=== PATIENT | female | born 1975 | race Two or more races ===

== ENCOUNTER 2023-08-07 13:20 | Outpatient (AMB) | payer OTHER, SELFPAY ==
[2023-08-07 13:31] VITALS: PULSE 70; O2SAT 95; BMI 41.4
--- NOTE | 2023-08-07 13:31 | A.OFFVIS_ITS ---
Vital Signs 08/07/23 13:31 Height 5 ft 3 in Weight 234 lb BMI 41.4 Pulse 70 Pulse Source Pulse Oximeter Pulse Oximetry (%) 95 Oxygen Delivery Method Room Air Intake Visit Reasons: asthma Quarter Seamer Required: No Allergies amoxicillin Adverse Reaction (Severe, Verified 08/07/23 13:33) Hives morphine Adverse Reaction (Severe, Verified 08/07/23 13:33) Hives HPI Comments Details: The patient is here for pulmonary evaluation. The patient is a 48 year woman presenting here with worsening asthma symptoms and shortness breath. The patient had been evaluated previously at [facility]. She had been admitted multiple times with pneumonia many years ago. For the last few years though she has not been hospitalized which is reassuring. However, she has been complaining of progressive dyspnea on exertion. The patient has been noticed that even with minimal activity she is very short of breath. Therefore she has been sedentary. She has gained some weight. The patient does have significant headaches and daytime drowsiness. Her [place] score is elevated 24. She has significant cardiovascular risk factors including significant lower extremity edema. The patient will undergo home sleep study at this time. During the office visit we did go for brief walking oximetry. The patient was able to maintain a pulse ox of 98% and the heart rate was indeed stable which is reassuring. As far as inhalers she has been on Arnuity and Incruse. Does have been partially effective. Sometimes she has confused about the inhalers. At this point will go ahead and maximize respiratory therapy by switching her over to Trelegy inhaler which will be on easier and will provide her more coverage as far as her bronchodilation. The patient is a former smoker. She quit smoking about 3 years ago. She smoked for more than 20 years for about a pack a day. Therefore she does qualify for the lung cancer screening program. Will make a referral at this time. [facility] Medical History Dyspnea Lower extremity edema MELQUIADES (obstructive sleep apnea) Asthma Smoking history Social History (Updated 08/07/23 @ 13:38 by ANGY Goode) Patient Tobacco Use Status: Never used Tobacco Review of Systems Const Reports weight gain Eyes Reports no additional complaints ENT Reports nasal congestion Card Denies chest pain and Reports dyspnea on exertion Resp Reports dyspnea on exertion and Reports wheezing GI Reports no additional complaints Musc Reports no additional complaints Skin/Breast Denies rash Neuro Reports no additional complaints Shawn/Lymph Reports no additional complaints Aller/Immun Reports wheezing Physical Exam Vital Signs: Last Vital Signs Pulse 70 08/07/23 13:31 Pulse Ox 95 08/07/23 13:31 Oxygen Delivery Method Room Air 08/07/23 13:31 BMI result Body Mass Index 41.4 Const General: comfortable HEENT Head: Yes normocephalic Neck Neck: Yes supple Chest Chest palpation & inspection: normal inspection of the chest Resp Effort & Inspection: normal respiratory effort Auscultation: no rhonchi, no wheezes and diminished lung sounds Cardio Heart sounds: S1 normal heart sound present and S2 normal heart sound present GI Palpation (GI): Soft to palpation Skin General skin exam: no rashes or lesions noted Extrem General: No clubbing, No cyanosis and Yes edema Assessment & Plan Assessment & Plan (1) Smoking history: Code(s): Z87.891 - Personal history of nicotine dependence Category: Social Hx (2) MELQUIADES (obstructive sleep apnea): Code(s): G47.33 - Obstructive sleep apnea (adult) (pediatric) Category: Medical (3) Asthma: Code(s): J45.909 - Unspecified asthma, uncomplicated Category: Medical Qualifiers: Asthma severity: moderate Asthma persistence: persistent Asthma complication type: uncomplicated Qualified Code(s): J45.40 - Moderate persistent asthma, uncomplicated (4) Lower extremity edema: Code(s): R60.0 - Localized edema Category: Medical (5) Dyspnea: Code(s): R06.00 - Dyspnea, unspecified Category: Medical Qualifiers: Dyspnea type: dyspnea on exertion Qualified Code(s): R06.09 - Other forms of dyspnea Plan stop Incruse/arnuity start Trelegy 200 ROBBI as needed Home PSG LDCT screen Continue diuresis, additional lasix x 2-3 days Low sodium diet consider ECHO F/U 2-3 months Orders: Orders RT home sleep study Today G47.33 - Obstructive sleep apnea (adult) (pediatric) Referrals Lung Cancer Screening Referral J45.909 - Unspecified asthma, uncomplicated, Z87.891 - Personal history of nicotine dependence Medications: New stzdxzzcavs-hcjffyail-usfdtpcr 200-62.5-25 mcg (Trelegy Ellipta) 1 inh inhalation DAILY 30 days 60 ea 12RF furosemide (Lasix) 20 mg PO DAILY PRN 10 tabs 0RF edema Coding Level of Care Code New Pt Level 4 (72344) Diagnoses Smoking history Z87.891 MELQUIADES (obstructive sleep apnea) G47.33 Moderate persistent asthma without complication J45.40 Asthma severity: moderate Asthma persistence: persistent Asthma complication type: uncomplicated Lower extremity edema R60.0 Dyspnea on exertion R06.09 Dyspnea type: dyspnea on exertion Time Spent (min) 45
== END 2023-08-07 14:02 | disposition home or self-care (01) ==
PROVIDERS: PCP Physician Assistant; Referring Provider Internal Medicine; Visit Provider Hospitalist
DX: Z87.891 Personal history of nicotine dependence (principal); G47.33 Obstructive sleep apnea (adult) (pediatric); J45.40 Moderate persistent asthma, uncomplicated; R60.0 Localized edema; R06.09 Other forms of dyspnea
CPT/HCPCS: 99204

== ENCOUNTER → 2023-08-07 13:20 | Outpatient (BNVA) | payer OTHER, SELFPAY | PROVIDERS: PCP Physician Assistant; Referring Provider Internal Medicine; Visit Provider Hospitalist | DX: J45.40 Moderate persistent asthma, uncomplicated (principal); G47.33 Obstructive sleep apnea (adult) (pediatric); R06.09 Other forms of dyspnea; R60.0 Localized edema; Z87.891 Personal history of nicotine dependence | CPT/HCPCS: 99202 ==

== ENCOUNTER → 2023-09-24 09:04 | Outpatient (REF) | payer OTHER, SELFPAY | LOC: HO.SL 09:04 | PROVIDERS: Visit Provider Hospitalist | DX: G47.33 Obstructive sleep apnea (adult) (pediatric) (principal) | CPT/HCPCS: 95806 ==

== ENCOUNTER → 2023-09-25 09:21 | Outpatient (BNV) | payer OTHER, SELFPAY | PROVIDERS: Visit Provider Internal Medicine | DX: R06.83 Snoring (principal) | CPT/HCPCS: 95806 ==

== ENCOUNTER 2023-10-11 16:24 | Outpatient (AMB) | payer OTHER, SELFPAY ==
--- NOTE | 2023-10-11 15:50 | A.OFFVIS_ITS ---
Intake Visit Reasons: Former Smoker Allergies amoxicillin Adverse Reaction (Severe, Verified 08/07/23 13:33) Hives morphine Adverse Reaction (Severe, Verified 08/07/23 13:33) Hives HPI HPI Former Smoker: Details: Initial telehealth visit via phone for this 48 former smoker with a 35PYH. Patient has been smoking since age 16 for 31 years at 1-1.5ppd. Quit 1yr ago in 2022. . Denies marijuana use. Denies second hand smoke exposure. Denies exposure to chemicals or substances like asbestos. . Denies known family history of lung cancer. Denies personal history of cancers. Denies chest CT in last year. . Denies recent travel outside the [place]. Denies recent respiratory illness or recent hospitalization for respiratory issues. Reorts testing positive for COVID. x3. Admits receiving COVID Vaccine. x 2. . Denies fever, chills, new/worsening cough, hemoptysis, hoarseness or dysphagia. Denies significant chest pain, significant dyspnea or unintentional weight loss. Patient Lung Cancer Screening Questionnaire reviewed with patient by provider. . Shared Decision Making Completed. Patient meets criteria. Discussed in detail with patient, the risk vs benefit of LDCT screening. Patient consents to proceed with scan. Discussed smoking cessation. [facility] Medical History (Updated 10/11/23 @ 15:56 by Rachel Garcia PA-C) Asthma MELQUIADES (obstructive sleep apnea) Personal history of nicotine dependence Lower extremity edema Surgical History (Updated 10/11/23 @ 15:51 by Rachel Garcia PA-C) S/P UNIFORM MAKER shunt History of carpal tunnel release History of cholecystectomy History of total right knee replacement (TKR) Social History (Updated 10/11/23 @ 15:56 by Rachel Garcia PA-C) Patient Tobacco Use Status: Former Tobacco user Tobacco use type: Cigarette Years Smoked: (onset 16yo, 1-1.5ppd x 31yrs, 35pyh, quit 2022) Telehealth Telehealth Telehealth Platform: Telephone Location of provider rendering services: practice address Location of patient: address on file Patient Identification confirmed using: Name, : Yes Telehealth method: voice only Patient verbally consented to treatment: Yes Patient verbally consented to billing insurance company: Yes Patient informed of any privacy concerns related to visit: Yes Minutes spent on Phone/Video with Pt.: 15 Assessment & Plan Assessment & Plan (1) Personal history of nicotine dependence: Comment: (onset 16yo, 1-1.5ppd x 31yrs, 35pyh, quit 2022) Code(s): Z87.891 - Personal history of nicotine dependence Category: Medical Plan: - SDM visit completed today via phone - Patient meets criteria for LDCT for lung cancer screening purposes and is asymptomatic. - Smoking cessation counseling offered. Patients can always call [phone]. - Will arrange for a LDCT scan of the chest for screening purposes at [facility]. - Risks, benefits, and alternatives were discussed in detail and the patient agrees to proceed. - Risks discussed include but are not limited to: radiation exposure, anxiety during testing and while awaiting results, false negatives, false positives and possibility of additional intervention such as further imaging or surgical procedures for benign disease. - Benefits are obviously detection of lung cancer at an early stage which can lead to improved outcomes. - Discussed the importance of screening program compliance with adherence to yearly LDCT scan as scheduled - or sooner interval scans for personalized screening regimen. - Discussed follow up plan. Our office will send a letter discussing results and if needed set up phone call and office visit based on CT findings. - Patient educated on results categorization and the management decisions for suspicious findings potentially found on the screening LDCT scan. Any patient with a Lung RADS score of 3 or 4 will be reviewed by a multidisciplinary team at [facility] to form a plan of action in regards to scan findings. - If further work up is warranted for a suspicious lung finding this will be followed by the Lung Cancer Screening program in conjunction with the Thoracic Surgery Department at [facility]. - A copy of the office note and LDCT will be sent to the patient's PCP - as well as documentation on any associated further plans of care. - Incidental findings on LDCT are the PCP's responsibility. These findings are indicated with an S finding on the LDCT Assessment. A note discussing the findings will be sent to the PCP who is then responsible for further management. - All questions answered.? Plan Coding Level of Care Code Lung Cancer Screening G0296 Diagnoses Personal history of nicotine dependence Z87.891
== END 2023-10-11 16:25 | disposition home or self-care (01) ==
LOC: HO.HPS 16:24
PROVIDERS: Referring Provider Hospitalist; Visit Provider Physician Assistant Medical
DX: Z87.891 Personal history of nicotine dependence (principal)
CPT/HCPCS: G0296

== ENCOUNTER → 2023-10-11 16:24 | Outpatient (BNVA) | payer OTHER, SELFPAY | PROVIDERS: Visit Provider Physician Assistant Medical | DX: Z87.891 Personal history of nicotine dependence (principal); Z71.6 Tobacco abuse counseling | CPT/HCPCS: G0296 ==

== ENCOUNTER 2023-10-12 11:12 | Outpatient (REF) | payer OTHER, SELFPAY ==
--- NOTE | ~2023-10-12 | CT_ITS ---
EXAMINATION: CT LOW-DOSE SCREENING CHEST WITHOUT CONTRAST CLINICAL INFORMATION: Personal history of nicotine dependence. Former smoker. The patient has a 31 pack-year history of smoking, having quit 1 year ago. COMPARISON: None available. TECHNIQUE: Multidetector volumetric CT imaging of the chest is performed on a Siemens SOMATOM Definition scanner without contrast using low dose technique. Additional 2D coronal and sagittal reformatted images and axial 3D maximum intensity projection (MIP) images are generated on the CT workstation. This CT examination was performed using dose optimization techniques as appropriate, variously including the following: *Automated exposure control. *Adjustment of mA and/or kV according to patient size (this includes techniques or standardized protocols for targeted exams where dose is matched to indication/reason for exam; i.e. extremities or head). *Use of iterative reconstruction technique. TOTAL EXAM DLP: 60 mGy-cm. CTDIvol: 1.85 mGy. FINDINGS: PULMONARY NODULES: The following pulmonary nodules are present: - 5.4 mm right upper lobe (5:83). - 5.4 mm left upper lobe (5:168). - 4.8 mm pleural-based anterior right upper lobe (5:213). - 4 mm perifissural lymph node left lower lobe (5:215). No suspicious nodule is seen to suggest malignancy. LUNGS: Lungs bilaterally symmetrically expanded. There is moderate emphysema and mild bronchial thickening. No effusion or pneumothorax. Central airways patent. MEDIASTINUM: No mediastinal, hilar or axillary adenopathy or free fluid collection. CORONARY ARTERY CALCIFICATION: None visualized on this study. THYROID GLAND: Unremarkable to the extent seen. CARDIOVASCULAR STRUCTURES: Aortic and heart size normal. No pericardial effusion. CHEST WALL/AXILLA: Unremarkable. UPPER ABDOMEN: Included portions of the solid organs in the upper abdomen unremarkable on noncontrast imaging. Status post cholecystectomy. OSSEOUS STRUCTURES: No suspicious focal findings. CT/CT lung screening IMPRESSION: No finding is seen suspicious for malignancy. ASSESSMENT: 1. Lung-RADS Category 2: Benign appearance or behavior of nodules. N/A. 2. Lung-RADS Category S: Negative. There are no clinically significant or potentially clinically significant findings not related to the lungs requiring urgent additional evaluation. RECOMMENDATION: Continued routine annual low-dose CT lung screening in 1 year is recommended. An order for CT CHEST LOW DOSE CANCER SCREENING ([id number]) can be placed. Electronically signed by: Marques Rueda MD 11/09/2023 12:52 AM EDT RP
== END 2023-10-12 11:13 | disposition home or self-care (01) ==
LOC: HO.CT 11:12
PROVIDERS: Visit Provider Physician Assistant Medical
DX: Z12.2 Encounter for screening for malignant neoplasm of respiratory organs (principal); Z87.891 Personal history of nicotine dependence
CPT/HCPCS: 71271

== ENCOUNTER 2023-11-14 10:52 | Outpatient (AMB) | payer OTHER, SELFPAY ==
--- NOTE | 2023-11-14 10:54 | MHC.OFFVIS ---
Vital Signs 11/14/23 10:55 Height 5 ft 3 in Weight 219 lb BMI 38.8 BP 128/70 Blood Pressure Location Lt brachial Position Sitting Pulse 87 Pulse Source Pulse Oximeter Pulse Oximetry (%) 97 Oxygen Delivery Method Room Air Intake Visit Reasons: Asthma Garage Helper Required: No Allergies amoxicillin Adverse Reaction (Severe, Verified 11/14/23 10:56) Hives morphine Adverse Reaction (Severe, Verified 11/14/23 10:56) Hives HPI Comments Details: The patient is a 48 year woman presenting here with worsening asthma symptoms and shortness breath. The patient had been evaluated previously at [facility]. She had been admitted multiple times with pneumonia many years ago. For the last few years though she has not been hospitalized which is reassuring. However, she has been complaining of progressive dyspnea on exertion. The patient has been noticed that even with minimal activity she is very short of breath. Therefore she has been sedentary. She has gained some weight. The patient does have significant headaches and daytime drowsiness. Her Reynolds score is elevated 02/11. She has significant cardiovascular risk factors including significant lower extremity edema. The patient will undergo home sleep study at this time. During the office visit we did go for brief walking oximetry. The patient was able to maintain a pulse ox of 98% and the heart rate was indeed stable which is reassuring. As far as inhalers she has been on Arnuity and Incruse. Does have been partially effective. Sometimes she has confused about the inhalers. At this point will go ahead and maximize respiratory therapy by switching her over to Trelegy inhaler which will be on easier and will provide her more coverage as far as her bronchodilation. The patient is a former smoker. She quit smoking about 3 years ago. She smoked for more than 20 years for about a pack a day. Therefore she does qualify for the lung cancer screening program. Will make a referral at this time. 11/14/2023 the patient is here for a pulmonary follow-up visit. Overall she is doing okay. She still has some dyspnea on exertion. mild in severity. It is getting better. In addition to that she quit smoking. She still has a hard time with the cravings. We did go over her lung cancer screening CT scan. She does have mild emphysema. This concerned her. In addition to that she has multiple subcentimeter pulmonary nodules. Do not appear concerning her rads 2. She will get the CT scan in a year's time. In addition to that she continues have daytime drowsiness. Reynolds score is elevated 1124. she has witnessed apneic episodes significant snoring from her . She did have a home sleep study. Did not look like a recorded well but she did have 34 minutes which she spent below 88%. Therefore she has significant nocturnal hypoxia. Based on her symptoms and hypoxia I do not believe that the home sleep studies accurate. She will need a in-lab sleep study at this time. Will requested. She will continue with current respiratory therapy as prescribed. She will continue to use her rescue inhaler as needed. She is going to continue to focus on weight management. She also needs to continue with a low-sodium diet to avoid volume overload status. She does have varicose veins and lymphedema. She needs compression stockings to decrease the amount of edema. I will give her a prescription in order for her to get it at [facility]. [facility] Medical History (Updated 11/14/23 @ 22:45 by Rodney Vazquez MD) Nocturnal hypoxia Lymphadenopathy Asthma MELQUIADES (obstructive sleep apnea) Personal history of nicotine dependence Lower extremity edema Surgical History (Updated 10/11/23 @ 15:51 by Rachel Garcia PA-C) S/P IT INFRASTRUCTURE PROJECT MANAGER shunt History of carpal tunnel release History of cholecystectomy History of total right knee replacement (TKR) Social History (Updated 10/11/23 @ 15:56 by Rachel Garcia PA-C) Patient Tobacco Use Status: Former Tobacco user Tobacco use type: Cigarette Years Smoked: (onset 16yo, 1-1.5ppd x 31yrs, 35pyh, quit 2022) Review of Systems Const Reports weight gain Eyes Reports no additional complaints ENT Reports nasal congestion Card Denies chest pain and Reports dyspnea on exertion Resp Reports dyspnea on exertion and Reports wheezing GI Reports no additional complaints Musc Reports no additional complaints Skin/Breast Denies rash Neuro Reports no additional complaints Shawn/Lymph Reports no additional complaints Aller/Immun Reports wheezing Physical Exam Vital Signs: Last Vital Signs Pulse 87 11/14/23 10:55 BP 128/70 11/14/23 10:55 Pulse Ox 97 11/14/23 10:55 Oxygen Delivery Method Room Air 11/14/23 10:55 BMI result Body Mass Index 38.8 Const General: comfortable HEENT Head: Yes normocephalic Neck Neck: Yes supple Chest Chest palpation & inspection: normal inspection of the chest Resp Effort & Inspection: normal respiratory effort Auscultation: no rhonchi, no wheezes and diminished lung sounds Cardio Heart sounds: S1 normal heart sound present and S2 normal heart sound present GI Palpation (GI): Soft to palpation Skin General skin exam: no rashes or lesions noted Extrem General: No clubbing, No cyanosis and Yes edema Assessment & Plan Assessment & Plan (1) MELQUIADES (obstructive sleep apnea): Code(s): G47.33 - Obstructive sleep apnea (adult) (pediatric) Category: Medical (2) Asthma: Code(s): J45.909 - Unspecified asthma, uncomplicated Category: Medical Qualifiers: Asthma complication type: uncomplicated Asthma persistence: persistent Asthma severity: moderate Qualified Code(s): J45.40 - Moderate persistent asthma, uncomplicated (3) Lower extremity edema: Code(s): R60.0 - Localized edema Category: Medical (4) Dyspnea: Code(s): R06.00 - Dyspnea, unspecified Category: Medical Qualifiers: Dyspnea type: dyspnea on exertion Qualified Code(s): R06.09 - Other forms of dyspnea (5) Lymphadenopathy: Code(s): R59.1 - Generalized enlarged lymph nodes Category: Medical (6) Nocturnal hypoxia: Code(s): G47.34 - Idiopathic sleep related nonobstructive alveolar hypoventilation Category: Medical Plan continue Trelegy 200 ROBBI as needed in lab PSG LDCT screen Continue diuresis, additional lasix x 2-3 days Low sodium diet consider ECHO F/U 2-3 months Orders: Orders RT PSG in-lab sleep study Today G47.33 - Obstructive sleep apnea (adult) (pediatric), G47.34 - Idiopathic sleep related nonobstructive alveolar hypoventilation Medications: New compress.stocking,knee,reg,med 15-20 cm 2 ea 0RF R59.1 - Generalized enlarged lymph nodes Coding Level of Care Code Est Pt Level 4 (43756) Diagnoses MELQUIADES (obstructive sleep apnea) G47.33 Moderate persistent asthma without complication J45.40 Asthma complication type: uncomplicated Asthma persistence: persistent Asthma severity: moderate Lower extremity edema R60.0 Dyspnea on exertion R06.09 Dyspnea type: dyspnea on exertion Lymphadenopathy R59.1 Nocturnal hypoxia G47.34 Time Spent (min) 17
[2023-11-14 10:55] VITALS: BP 128/70; PULSE 87; O2SAT 97; BMI 38.8
== END 2023-11-14 11:18 | disposition home or self-care (01) ==
PROVIDERS: PCP Physician Assistant; Visit Provider Hospitalist
DX: G47.33 Obstructive sleep apnea (adult) (pediatric) (principal); J45.40 Moderate persistent asthma, uncomplicated; R60.0 Localized edema; R06.09 Other forms of dyspnea; R59.1 Generalized enlarged lymph nodes; G47.34 Idiopathic sleep related nonobstructive alveolar hypoventilation
CPT/HCPCS: 99214

== ENCOUNTER → 2023-11-14 10:52 | Outpatient (BNVA) | payer OTHER, SELFPAY | PROVIDERS: PCP Physician Assistant; Visit Provider Hospitalist | DX: J45.40 Moderate persistent asthma, uncomplicated (principal); R06.09 Other forms of dyspnea; G47.33 Obstructive sleep apnea (adult) (pediatric); R59.1 Generalized enlarged lymph nodes; G47.34 Idiopathic sleep related nonobstructive alveolar hypoventilation | CPT/HCPCS: 99212 ==

== ENCOUNTER → 2023-12-20 20:30 | Outpatient (REF) | payer OTHER, SELFPAY | LOC: HO.SL 20:30 | PROVIDERS: PCP Physician Assistant; Visit Provider Hospitalist | DX: G47.34 Idiopathic sleep related nonobstructive alveolar hypoventilation (principal); G47.33 Obstructive sleep apnea (adult) (pediatric) | CPT/HCPCS: 95810 ==

== ENCOUNTER → 2023-12-20 23:33 | Outpatient (BNV) | payer OTHER, SELFPAY | PROVIDERS: PCP Physician Assistant; Visit Provider Internal Medicine | DX: R06.83 Snoring (principal) | CPT/HCPCS: 95810 ==

== ENCOUNTER 2024-03-12 10:38 | Outpatient (AMB) | payer OTHER, SELFPAY ==
--- NOTE | 2024-03-12 10:46 | A.OFFVIS_ITS ---
Vital Signs 03/12/24 10:47 Height 5 ft 3 in Weight 229 lb 4.492 oz BMI 40.6 BP 152/90 H Blood Pressure Location Rt brachial Position Sitting Pulse 66 Pulse Source Pulse Oximeter Pulse Oximetry (%) 95 Oxygen Delivery Method Room Air Intake Visit Reasons: Asthma Allergies amoxicillin Adverse Reaction (Severe, Verified 03/12/24 10:50) Hives morphine Adverse Reaction (Severe, Verified 03/12/24 10:50) Hives HPI Comments Details: The patient is a 48 year woman presenting here with worsening asthma symptoms and shortness breath. The patient had been evaluated previously at [facility]. She had been admitted multiple times with pneumonia many years ago. For the last few years though she has not been hospitalized which is reassuring. However, she has been complaining of progressive dyspnea on exertion. The patient has been noticed that even with minimal activity she is very short of breath. Therefore she has been sedentary. She has gained some weight. The patient does have significant headaches and daytime drowsiness. Her Stillwater score is elevated 12/24. She has significant cardiovascular risk factors including significant lower extremity edema. The patient will undergo home sleep study at this time. During the office visit we did go for brief walking oximetry. The patient was able to maintain a pulse ox of 98% and the heart rate was indeed stable which is reassuring. As far as inhalers she has been on Arnuity and Incruse. Does have been partially effective. Sometimes she has confused about the inhalers. At this point will go ahead and maximize respiratory therapy by switching her over to Trelegy inhaler which will be on easier and will provide her more coverage as far as her bronchodilation. The patient is a former smoker. She quit smoking about 3 years ago. She smoked for more than 20 years for about a pack a day. Therefore she does qualify for the lung cancer screening program. Will make a referral at this time. 11/14/2023 the patient is here for a pulmonary follow-up visit. Overall she is doing okay. She still has some dyspnea on exertion. mild in severity. It is getting better. In addition to that she quit smoking. She still has a hard time with the cravings. We did go over her lung cancer screening CT scan. She does have mild emphysema. This concerned her. In addition to that she has multiple subcentimeter pulmonary nodules. Do not appear concerning her rads 2. She will get the CT scan in a year's time. In addition to that she continues have daytime drowsiness. Stillwater score is elevated 1124. she has witnessed apneic episodes significant snoring from her . She did have a home sleep study. Did not look like a recorded well but she did have 34 minutes which she spent below 88%. Therefore she has significant nocturnal hypoxia. Based on her symptoms and hypoxia I do not believe that the home sleep studies accurate. She will need a in-lab sleep study at this time. Will requested. She will continue with current respiratory therapy as prescribed. She will continue to use her rescue inhaler as needed. She is going to continue to focus on weight management. She also needs to continue with a low-sodium diet to avoid volume overload status. She does have varicose veins and lymphedema. She needs compression stockings to decrease the amount of edema. I will give her a prescription in order for her to get it at [facility]. 03/12/2024 the patient is here for a pulmonary follow-up visit. The patient overall has been doing okay. She does state that she is having intermittent chest pain. There fleeting when they occur. [id number] severity. Mainly in the left side of the chest. Will go ahead and request a EKG and also a echocardiogram. The patient should also get some blood work. If the symptoms reoccur she should go to the ER for further evaluation. Currently she does not have any chest discomfort. She still has daytime drowsiness. She did have a in- lab sleep study. No evidence of any significant sleep apnea although she did have nocturnal hypoxia. It was recommended that she sleep with oxygen. The patient is not interested at this time. Will plan to do a repeat overnight oximetry in the near future. In the meantime we talked about her lower extremity edema. The patient has been on diuretics. She does not have a good dietary regimen right now. The patient eats out most of the time or has process foods. The patient states that she does not cook and she does not want a cook b ecause it just brings bad memories with her mom. Therefore, will go ahead and for her to a dietitian to help with that and the patient will continue with current respiratory therapy. She is taking part of the lung cancer screening program. Her last CT scan was back in September which is reassuring. She will have a repeat CT scan sometime in 10/08/2024. Will plan to follow-up in the fall. If any issues arise prior to that she will call for an earlier assessment. [facility] Medical History (Updated 03/12/24 @ 19:30 by Rodney Vazquez MD) Chest pain Nocturnal hypoxia Lymphadenopathy Asthma MELQUIADES (obstructive sleep apnea) Personal history of nicotine dependence Lower extremity edema Surgical History (Updated 10/11/23 @ 15:51 by Rachel Garcia PA-C) S/P HUMAN RESOURCES GENERALIST shunt History of carpal tunnel release History of cholecystectomy History of total right knee replacement (TKR) Social History Patient Tobacco Use Status: Former Tobacco user Tobacco use type: Cigarette Years Smoked: (onset 16yo, 1-1.5ppd x 31yrs, 35pyh, quit 2022) Review of Systems Const Reports weight gain Eyes Reports no additional complaints ENT Reports nasal congestion Card Reports chest pain and Reports dyspnea on exertion Resp Reports dyspnea on exertion and Reports wheezing GI Reports no additional complaints Musc Reports no additional complaints Skin/Breast Denies rash Neuro Reports no additional complaints Shawn/Lymph Reports no additional complaints Aller/Immun Reports wheezing Physical Exam Vital Signs: Last Vital Signs Pulse 66 03/12/24 10:47 BP 152/90 H 03/12/24 10:47 Pulse Ox 95 03/12/24 10:47 Oxygen Delivery Method Room Air 03/12/24 10:47 BMI result Body Mass Index 40.6 Const General: comfortable HEENT Head: Yes normocephalic Neck Neck: Yes supple Chest Chest palpation & inspection: normal inspection of the chest Resp Effort & Inspection: normal respiratory effort Auscultation: no rhonchi, no wheezes and diminished lung sounds Cardio Heart sounds: S1 normal heart sound present and S2 normal heart sound present GI Palpation (GI): Soft to palpation Skin General skin exam: no rashes or lesions noted Extrem General: No clubbing, No cyanosis and Yes edema Assessment & Plan Assessment & Plan (1) MELQUIADES (obstructive sleep apnea): Code(s): G47.33 - Obstructive sleep apnea (adult) (pediatric) Category: Medical (2) Asthma: Code(s): J45.909 - Unspecified asthma, uncomplicated Category: Medical Qualifiers: Asthma complication type: uncomplicated Asthma persistence: persistent Asthma severity: moderate Qualified Code(s): J45.40 - Moderate persistent asthma, uncomplicated (3) Lower extremity edema: Code(s): R60.0 - Localized edema Category: Medical (4) Dyspnea: Code(s): R06.00 - Dyspnea, unspecified Category: Medical Qualifiers: Dyspnea type: dyspnea on exertion Qualified Code(s): R06.09 - Other forms of dyspnea (5) Lymphadenopathy: Code(s): R59.1 - Generalized enlarged lymph nodes Category: Medical (6) Nocturnal hypoxia: Code(s): G47.34 - Idiopathic sleep related nonobstructive alveolar hypoventilation Category: Medical (7) Chest pain: Code(s): R07.9 - Chest pain, unspecified Category: Medical Qualifiers: Chest pain type: unspecified Qualified Code(s): R07.9 - Chest pain, unspecified Plan continue Trelegy 200 ROBBI as needed EKG Bloodwork ECHO LDCT screen 09/2024 Continue diuresis Low sodium diet Water Tester referral F/U 6-8 months Orders: Orders Liver Panel Today R07.9 - Chest pain, unspecified Troponin-I High Sensitivity Today R07.9 - Chest pain, unspecified CA echo transthoracic complete Today I27.20 - Pulmonary hypertension, unspecified, R07.9 - Chest pain, unspecified Complete Blood Count Auto Diff Today R07.9 - Chest pain, unspecified Basic Metabolic Panel Today R07.9 - Chest pain, unspecified Erythrocyte Sedimentation Rate Today R07.9 - Chest pain, unspecified ECG 12 lead EKG Today J44.9 - Chronic obstructive pulmonary disease, unspecified, R07.9 - Chest pain, unspecified Referrals 2 Water Tester Nutrition Referral E66.9 - Obesity, unspecified Coding Level of Care Code Est Pt Level 4 (54324) Diagnoses MELQUIADES (obstructive sleep apnea) G47.33 Moderate persistent asthma without complication J45.40 Asthma complication type: uncomplicated Asthma persistence: persistent Asthma severity: moderate Lower extremity edema R60.0 Dyspnea on exertion R06.09 Dyspnea type: dyspnea on exertion Lymphadenopathy R59.1 Nocturnal hypoxia G47.34 Chest pain, unspecified type R07.9 Chest pain type: unspecified Time Spent (min) 17
[2024-03-12 10:47] VITALS: BP 152/90; PULSE 66; O2SAT 95; BMI 40.6
--- OUTSIDE RECORDS SUMMARY | 2024-03-12 11:52 | XMS_ITS | Encounter Summary ---
Author Organization [facility] Address [id number] [place] [id number] Care Team Providers Care Fiberglass Dowel Drawing Operator Name Role Phone Chely Barnes Primary Care Provider + Reason for Visit * Reason Onset Date Comments Prior Authorization 01/23/2024 Encounter Details Date Type Department Care Team (Late st Contact Info) Description 01/23/2024 Telephone Internal Medicine - [place] [address] [place] [phone] Chely Barnes PA [address] [place] [address] Prior Authorization Social History Tobacco Use Types Packs/Day Years Used Date Smoking Tobacco: Every Day Cigarettes Started: 03/14/1995 Smokeless Tobacco: Never Alcohol Use Standard Drinks/Week Comments No 0 (1 standard drink = 0.6 oz pur e alcohol) Sex and Gender Information Value Date Recorded Sex Assigned at Not on file Gender Identity Not on file Sexual Orientation Not on file Job Start Date Occupation Industry Not on file Not on file Not on file documented as of this encounter Progress Notes * Yuliet Bhardwaj MA - 02/15/2024 9:47 AM EST active authorization already exists for this patient. Pharmacy Customer Care at [phone]. MPA: [id number] Effective: 02/10/2024 Terminate: 02/09/2025 * Fabiola Bass - 02/14/2024 4:00 PM EST Please complete Prior Auth. Patient new weight check documented 02/07/24. * Yuliet Bhardwaj MA - 02/01/2024 3:55 PM EST Yes it can wait. Will just put the prior authorization on hold. Thank you Please reply back to [facility] (Prior Auth Pool) Yuliet Reynolds [facility] Prior Authorization Ext [id number] * April Phipps MA - 02/01/2024 3:45 PM EST Pt has an appt with PCP on 02/07/2024 at 9:30 AM. Can we wait until that day for weight check? * Yuliet Bhardwaj MA - 02/01/2024 9:47 AM EST This is asking for members weight dated within the last 90 days. There is none, ( I can't do anything with this, I have no weight documentation. Please obtain a weight in a nurse visit Thank you Please reply back to [facility] (Prior Auth Pool) Yuliet Reynolsd [facility] Prior Authorization Ext [id number] * Yuliet Bhardwaj MA - 02/01/2024 9:38 AM EST Prior [facility] for the [facility] E66.01 morbid obesity * Fabiola Bass - 01/23/2024 10:07 AM EST Prior Authorization for Medication-do not complete and send this encounter unless you have the fax from the pharmacy. Is this a Cover My Meds request: NO Name of Medication semaglutide (WEGOVY) Dose of Medication 0.5 mg/0.5 mL What is the RX # from the faxed refill? - How does patient take this med? Inject 0.5 mg under the skin every 7 (seven) days What Pharmacy did the fax come from: [facility] fax #: [phone] [employer] Information from fax: What Prescription Plan does the patient have? - BIN/PCN if applicable: - Cardholder ID: - Person Code: - Relationship Code: - Help desk phone: - documented in this encounter Plan of Treatment Upcoming Encounters Date Type Department Care Team (Late st Contact Info) Description 06/10/2024 10:30 AM EDT Office Visit Internal Medicine - [place] [address] [phone] Chely Barnes PA [address] [facility] [address] [place] [address] documented as of this encounter Visit Diagnoses Not on filedocumented in this encounter Historical Medications * This list may reflect changes made after this encounter. Medication Sig Dispensed Refills Start Date End Date semaglutide (WEGOVY) 0.5 mg/0.5 mL injection pen Inject 0.5 mg under the skin every 7 (seven) days. 02/07/2024 added in this encounter Care Teams Fiberglass Dowel Drawing Operator Relationship Specialty Start Date End Date Chely Barnes PA [address] [id number] PCP - General Primary Care 12/27/23 documented as of this encounter
--- OUTSIDE RECORDS SUMMARY | 2024-03-12 11:52 | XMS_ITS | Clinical Summary ---
Author Organization [facility] Address [address] [place] [address] Phone Care Team Providers Care Bandoleer Packer Name Role Phone Chely Barnes Primary Care Provider + Allergies Active Allergy Reactions Criticality Noted Date Comments Amoxicillin Hives 12/27/2023 Morphine Hives 12/27/2023 Medications Medication Sig Dispensed Refills Start Date End Date Status furosemide (LASIX) 20 mg tablet Take 1 tablet (20 mg total) by mouth 1 (one) time each day. Active linaCLOtide (Linzess) 290 mcg capsule Take 1 capsule (290 mcg total) by mouth 1 (one) time each day. 90 capsule 1 4 07/28/19 25 Active cetirizine (ZyrTEC) 10 mg tablet Take 1 tablet (10 mg total) by mouth 1 (one) time each day if needed for allergies. 3 Active esomeprazole (NexIUM) [address] capsule Take 1 capsule (40 mg total) by mouth 1 (one) time each day. 4 Active escitalopram (LEXAPRO) 20 mg tablet Take 1 tablet (20 mg total) by mouth 1 (one) time each day. 3 Active fluticasone propionate (FLONASE) 50 mcg/actuation nasal spray Administer 2 sprays into each nostril 1 (one) time each day. SHAKE LIQUID 4 Active ondansetron ODT (ZOFRAN-ODT) 4 mg disintegrating tablet Dissolve 1 tablet (4 mg total) on top of the tongue every 8 (eight) hours if needed. Active simethicone (MYLICON) 125 mg chewable tablet Chew 1 tablet (125 mg total) 4 (four) times a day if needed for flatulence. 2 Active cholecalciferol (VITAMIN D-3) 50 mcg (2,000 unit) capsule Take 1 capsule (2,000 Units total) by mouth 1 (one) time each day. Active polycarbophil (FIBERCON) 625 mg tablet Take 1 tablet (625 mg total) by mouth 1 (one) time each day. for 360 days. Active metoprolol succinate (TOPROL-XL) 50 mg 24 hr tablet Take 1 tablet (50 mg total) by mouth 1 (one) time each day. Active albuterol HFA (PROAIR HFA ; PROVENTIL HFA ; VENTOLIN HFA) 90 mcg/actuation inhaler Inhale 2 puffs by mouth every 4 (four) hours if needed. 1 Active Trelegy Ellipta 200-62.5-25 mcg inhaler Inhale 1 puff (200 mcg total) by mouth 1 (one) time each day. 4 Active semaglutide (Wegovy) 1 mg/0.5 mL injection penIndications:Obes ity (BMI 30-39.9) Inject 1 mg under the skin every 7 (seven) days. 2 mL 2 4 Active amitriptyline (ELAVIL) 25 mg tabletIndications:I nsomnia, unspecified type TAKE 1 TABLET(25 MG) BY MOUTH AT BEDTIME 30 tablet 1 5 Active amitriptyline (ELAVIL) 25 mg tabletIndications:I nsomnia, unspecified type Take 1 tablet (25 mg total) by mouth at bedtime. 30 each 4 03/05/19 25 Discontinued Active Problems Problem Noted Date Diagnosed Date Asthma 02/04/2024 Depression 02/04/2024 Migraine 02/04/2024 Pseudotumor cerebri 02/04/2024 Morbid obesity with BMI of 40.0-44.9, adult 01/19 Vitamin D deficiency 09/13/2022 Hypoxemia 04/23/2020 Allergic rhinitis due to pollen 05/21/2019 Nicotine dependence, uncomplicated 05/21/2019 PND (post-nasal drip) 05/21/2019 Anxiety and depression 10/02/2018 Trigger finger 06/25/2017 Tobacco abuse disorder Overview (02/07/2024): DX:Tobacco abuse disorder HTN (hypertension) Encounters Date Type Department Care Team Description 03/11/2024 Telephone Internal Medicine - [place] [address] [phone] Chely Barnes PA Medication Problem (No prior auth for wegovy/Now requesting zepbound) 02/07/2024 9:30 AM EST Office Visit Internal Medicine [facility] [address] [phone] Chely Barnes PA Primary hypertension (Primary Dx); Moderate persistent asthma without complication; Tobacco abuse disorder; Anxiety and depression; Insomnia, unspecified type; Obesity (BMI 30-39.9) 01/23/2024 Telephone Internal Medicine [address] [phone] Chely Barnes PA Prior Authorization 12/28/2023 Telephone Gastroenterology - [address] [phone] Cruz Carrington DO provider call back 12/27/2023 1:00 AM EST - 12/27/2023 11:07 AM EST Emergency [facility] Emergency [address] [place] [phone] Discharge Disposition: Home or Self Care from Last 3 Months Immunizations Name Administration Dates Next Due Pfizer SARS-CoV-2 COVID-19, mRNA, LNP-S, preservative free 02/22/2021 Surgical History Surgery Date Site/Laterality Comments OTHER SURGICAL HISTORY PROCEDURE: ---- OTHER ----; COMMENT: v/p shunt - 4 years ago, done [facility] by Dr anders CHOLECYSTECTOMY 2001 PROCEDURE: HISTORICAL CHOLECYSTECTOMY CARPAL TUNNEL RELEASE 2016 PROCEDURE: GA NEUROPLASTY &/TRANSPOS MEDIAN NRV CARPAL TUNNE COLONOSCOPY 08/24/2021 PROCEDURE: HISTORICAL COLONOSCOPY; COMMENT: negative/fair prep ESOPHAGOGASTRODUODENOSCOPY 08/24/2021 PROCEDURE: GA EGD TRANSORAL BIOPSY SINGLE/MULTIPLE; COMMENT: hiatal hernia. biopsy with H.pylori gastritis TOTAL KNEE ARTHROPLASTY Right PROCEDURE: HISTORICAL TOTAL KNEE REPLACE; COMMENT: 2015 Medical History Medical History Date Comments Pseudotumor cerebri DX:Pseudotum or cerebri; COMMENT: follows with Dr Bergman [facility] S/P MARKET ANALYSIS DIRECTOR shunt DX:S/P MARKET ANALYSIS DIRECTOR shunt Asthma DX:Asthma; COMME NT: Dr Erazo at [facility] Migraine DX:Migraine; COM MENT: Dr peck in [facility] Trigger finger 06/25/2017 DX:Trigger finge r H/O total knee replacement, right 02/29/2016 DX:H/O total knee replacement, right Morbid obesity with BMI of 40.0-44.9, adult (CMS/HCC) 03/29/2018 DX:Morbid obesity with BMI of 40.0-44.9, adult ([facility]) Tobacco abuse disorder DX:Tobacc o abuse disorder Vitamin D deficiency DX:Vitamin D deficiency HTN (hypertension) Anxiety and depression Family History Medical History Relation Name Comments Hypertension Father dm, glaucoma, d ied at 50s Prostate cancer Maternal Grandfather Other cancer Maternal Grandmother cervica l Coronary artery disease Mother Other: a fib Mother Stroke Mother Prostate cancer Paternal Grandfather Other cancer Paternal Grandmother cervica l Relation Name Status Comments Father Maternal Grandfather Maternal Grandmother Mother (Age 81) Paternal Grandfather Paternal Grandmother Social History Tobacco Use Types Packs/Day Years Used Date Smoking Tobacco: Former Cigarettes Smokeless Tobacco: Never Tobacco Cessation:Counseling Given: Not Answered Comments:Quit smoking September 2023 Alcohol Use Standard Drinks/Week Comments No 0 (1 standard drink = 0.6 oz pur e alcohol) Sex and Gender Information Value Date Recorded Sex Assigned at Not on file Gender Identity Not on file Sexual Orientation Not on file Job Start Date Occupation Industry Not on file Not on file Not on file Obstetrics History Last Filed Vital Signs Vital Sign Reading Time Taken Comments Blood Pressure 122/76 02/07/2024 9:38 AM EST Pulse 90 02/07/2024 9:38 AM EST Temperature 37.1 ??C (98.8 ??F) 12/27/2023 1:22 AM ES T Respiratory Rate - - Oxygen Saturation 96% 02/07/2024 9:38 AM EST Inhaled Oxygen Concentration - - Weight 98.9 kg (218 lb) 02/07/2024 9:38 AM EST Height 162.6 cm (5' 4 ) 07/30/2023 10:53 AM EDT Body Mass Index 37.42 07/30/2023 10:53 AM EDT Plan of Treatment Upcoming Encounters Date Type Department Care Team (Late st Contact Info) Description 06/10/2024 10:30 AM EDT Office Visit Internal Medicine - [place] [address] [facility] [address] [place] [phone] Chely Barnes, NOHEMI [address] [facility] [address] [place] [address] Health Maintenance Due Date Last Done Comments Pneumococcal Vaccine: Pediatrics (0 to 5 Years) and At-Risk Patients (6 to 64 Years) (1 of 2 - PCV) 07/02/1979 DTaP,Tdap,and Td Vaccines (1 - Tdap) 1992 Hepatitis B Vaccines (1 of 3 - 19+ 3-dose series) 1992 Cervical Cancer Screening: P ap Smear 1994 Depression Screening 01/28/2022 HIV Screening 01/28/2022 Hepatitis C Screening 01/28/2022 Medicare Annual Wellness Visit 01/28/2022 Social Influencers of Health Screening 01/28/2022 Zoster Vaccines (1 of 2) 07/02/2023 COVID-19 Vaccine (4 - 2023-2 5 season) 2023 02/22/2021, 06/15/2020, 05/25/2020 Influenza Vaccine (#1) 2023 Hypertension/CHF/CAD Annual BMP Blood Test 05/27/2024 05/28/2023 Breast Cancer Screening 07/08/2025 07/09/2023 Cholesterol Screening (Lipid Panel) 09/12/2027 09/11/2022 Colorectal Cancer Screening: Colonoscopy 08/25/2031 08/24/2021 HIB Vaccines Aged Out No longer eligi ble based on patient's age to complete this topic HPV Vaccines Aged Out No longer eligi ble based on patient's age to complete this topic Hepatitis A Vaccines Aged Out No long er eligible based on patient's age to complete this topic IPV Vaccines Aged Out No longer eligi ble based on patient's age to complete this topic MMR Vaccines Aged Out No longer eligi ble based on patient's age to complete this topic Meningococcal ACWY Vaccine Aged Out N o longer eligible based on patient's age to complete this topic RSV Immunization Patients Under 20 months Aged Out No longer eligible b ased on patient's age to complete this topic Varicella Vaccines Aged Out No longer eligible based on patient's age to complete this topic Procedures Procedure Name Priority Date/Time Associated Diagnosis Comments RESPIRATORY VIRUS PANEL MOLECULAR STUDY STAT 12/27/2023 1:50 AM EST ECG 12-LEAD STAT 12/27/2023 1:16 AM EST ECG ANNOTATED 12/27/2023 MARGOTH SCREENING DIGITAL Routine 07/09/2023 10:08 AM EDT Encounter for screening mammogram for malignant neoplasm of breast ANNUAL BMP BLOOD TEST Routine 05/28/2023 LIPID PANEL Routine 09/11/2022 COLONOSCOPY Routine 08/24/2021 from Last 3 Months or Most Recently Relevant to Health Maintenance Results * Respiratory virus panel molecular study (12/27/2023 1:50 AM EST) Adenovirus Detection by PCR Not Detected Not Detected LAB MICROBIOLOGY METHOD 12/27/2023 2:[address] [facility] Influenza A PCR Not Detected Not Detected LAB MICROBIOLOGY METHOD 12/27/2023 2:[address] [facility] Influenza B PCR Not Detected Not Detected LAB MICROBIOLOGY METHOD 12/27/2023 2:[address] [facility] Coronavirus 229E Not Detected Not Detected LAB MICROBIOLOGY METHOD 12/27/2023 2:[address] [facility] Coronavirus HKU1 Not Detected Not Detected LAB MICROBIOLOGY METHOD 12/27/2023 2:[address] [facility] Coronavirus OC43 Not Detected Not Detected LAB MICROBIOLOGY METHOD 12/27/2023 2:[address] [facility] Coronavirus NL63 Not Detected Not Detected LAB MICROBIOLOGY METHOD 12/27/2023 2:[address] [facility] Parainfluenza Virus 1 Not Detected Not Detected LAB MICROBIOLOGY METHOD 12/27/2023 2:[address] [facility] Parainfluenza Virus 2 Not Detected Not Detected LAB MICROBIOLOGY METHOD 12/27/2023 2:[address] [facility] Parainfluenza Virus 3 Not Detected Not Detected LAB MICROBIOLOGY METHOD 12/27/2023 2:[address] [facility] Parainfluenza Virus 4 Not Detected Not Detected LAB MICROBIOLOGY METHOD 12/27/2023 2:[address] [facility] RSV PCR Not Detected Not Detected LAB MICROBIOLOGY METHOD 12/27/2023 2:[address] [facility] Human Metapneumovirus A and B Not Detected Not Detected LAB MICROBIOLOGY METHOD 12/27/2023 2:[address] [facility] Rhinovirus/Entero virus Not Detected Not Detected LAB MICROBIOLOGY METHOD 12/27/2023 2:[address] [facility] Bordetella pertussis Not Detected Not Detected LAB MICROBIOLOGY METHOD 12/27/2023 2:[address] [facility] Bordetella parapertussis Not Detected Not Detected LAB MICROBIOLOGY METHOD 12/27/2023 2:[address] [facility] Mycoplasma pneumo by PCR Not Detected Not Detected LAB MICROBIOLOGY METHOD 12/27/2023 2:[address] [facility] Chlamydia pneumoniae Not Detected Not Detected LAB MICROBIOLOGY METHOD 12/27/2023 2:[address] [facility] SARS COV-2 Not Detected Not Detected LAB MICROBIOLOGY METHOD 12/27/2023 2:[address] [facility] Swab Both anterior nares / Unknown Non-blood Collection / Unknown 12/27/2023 1:50 AM EST 12/27/2023 1:55 AM EST [facility] - 12/27/2023 2:57 AM EST Testing was performed using the [employer] Respiratory Pathogen PCR Assay. All results must be correlated with the clinical findings. Results should not be used as the sole basis for diagnosis. False Negative results may occur from the presence of sequence variants in the region targeted by the assay or the presence of inhibitors. Results may be affected by concurrent antiviral/antimicrobial therapy or levels of organisms that are below the limit of detection. Yasmeen Rubio MD LAB MICROBIOLOGY - GENERAL ORDERABLES Performing Organization Address [facility] Co de Phone Number [facility] [address] [place] [address], * ECG 12 lead (12/27/2023 1:16 AM EST) Ventricular Rate ECG 59 BPM GEMUSE Atrial Rate 59 BPM GEMUSE P-R Interval 146 ms GEMUSE QRS Duration 76 ms GEMUSE Q-T Interval 414 ms GEMUSE QTc 409 ms GEMUSE P Wave [place] 74 degrees GEMUSE R [place] 60 degrees GEMUSE T [place] 53 degrees GEMUSE ECG Interpretation Sinus bradycardia with sinus arrhythmia Otherwise normal ECG When compared with ECG of 16-JUN-2023 12:07, No significant change was found Confirmed by Christy BOWEN, JANUARY ([id number]) on 12/27/2023 5:31:30 PM GEMUSE 12/27/2023 1:16 AM EST 12/27/2023 5:31 PM EST Yasmeen Rubio MD ECG ORDERABLES Performing Organization Address [facility] Co de Phone Number GEMUSE * ECG-Annotated (12/27/2023) Duncan Murcia MD ECG ORDERABLES * MARGOTH SCREENING DIGITAL (07/09/2023 10:08 AM EDT) Anatomical Region Laterality Modality Mammography 07/05/2023 9:05 AM EDT Narrative 07/09/2023 10:08 AM EDT [facility] Diagnostic Imaging Department [address] [place] [address] Patient: ??ZAIDA FRENCH J ?/Age/Sex: 1975 - 48 - F Unit#: ??[id number] ? Location/Status: ??SPDIMAM/REG CLI ? Mnemonic/Ordering Site: ??DIGSC/SPMAM Ordering Physician: ??VCIKY CERVANTES MD [facility] Screening Digital - 07/07/23 - 1121 Report Status:Signed EXAM: [facility] Screening Digital EXAM DATE AND TIME: 07/07/2023 11:21 AM HISTORY: ??Screening. COMPARISON: ??09/02/08 TECHNIQUE: Bilateral digital breast tomosynthesis was performed in the CC and MLO projections. Computer aided detection with Neverfail 3D 3.1 was employed. TISSUE DENSITY: a. The breasts are almost entirely fatty. FINDINGS: No suspicious masses, grouped microcalcifications, or areas of architectural distortion are seen. The skin and vascularity are unremarkable. IMPRESSION: Stable mammographic appearance of the breasts. ??No evidence of malignancy is seen. A negative mammogram in the presence of a clinically suspicious palpable abnormality does not preclude the possibility of malignancy or alter the indicat ions for biopsy. BI-RADS: ??Category 1: Negative RECOMMENDATION(S): 1: Routine screening mammogram BILATERAL in 1 year. Dictating Physician: ??DANIELLA RUTH MD Electronically Signed by: ??DANIELLA RUTH MD Dic Date/Time: ??07/09/23 1007 Sign date/Time: ??07/09/23 1008 Procedure Note Daniella Ruth MD - 10/08/2023 [facility] Diagnostic Imaging Department [address] [place] [id number] Patient: ZAIDA FRENCH Francisca /Age/Sex: 1975 - 48 - F Unit#: [id number] Location/Status: [facility] CLI Mnemonic/Ordering Site: [facility] Ordering Physician: VICKY CERVANTES MD [facility] Screening Digital - 07/07/23 - 1121 Report Status:Signed EXAM: [facility] Screening Digital EXAM DATE AND TIME: 07/07/2023 11:21 AM HISTORY: Screening. COMPARISON: 09/02/08 TECHNIQUE: Bilateral digital breast tomosynthesis was performed in the CCand MLO projections. Computer aided detection with Neverfail 3D 3.1was employed. TISSUE DENSITY: a. The breasts are almost entirely fatty. FINDINGS: No suspicious masses, grouped microcalcifications, or areas ofarchitectural distortion are seen. The skin and vascularity are unremarkable. IMPRESSION: Stable mammographic appearance of the breasts. No evidence of malignancyis seen. A negative mammogram in the presence of a clinically suspicious palpable abnormality does not preclude the possibility of malignancy or alter theindicat ions for biopsy. BI-RADS: Category 1: Negative RECOMMENDATION(S): 1: Routine screening mammogram BILATERAL in 1 year. Dictating Physician: DANIELLA RUTH MD Electronically Signed by: DANIELLA RUTH MD Dic Date/Time: 07/09/23 1007 Sign date/Time: 07/09/23 1008 Vicky Del Angel MD IMG BI PROCEDURE S * Annual BMP Blood Test (05/28/2023) Annual BMP Blood Test abstracted Historical Provider MD ZAMARRIPA MAINADRIANA E * (ABNORMAL) Lipid panel (09/11/2022) LDL/HDL Ratio 3 0 - 4 Triglycerides 97 0 - 150 mg/dL Cholesterol 179 0 - 200 mg/dL HDL 52 40 mg/dL LDL Cholesterol 108(A) 0 - 100 mg/dL Blood Venous blood specimen / Unknown Historical Provider LAB BLOOD ORDERAB LES * Colonoscopy (08/24/2021) Colonoscopy normal, abstracted Anatomical Region Laterality Modality Other Historical Provider MD ZAMARRIPA MAINADRIANA Moody from Last 3 Months or Most Recently Relevant to Health Maintenance Care Teams Bandoleer Packer Relationship Specialty Start Date End Date Chely Barnes PA [address] [address] PCP - General Primary Care 12/27/23
--- OUTSIDE RECORDS SUMMARY | 2024-03-12 11:52 | XMS_ITS | Encounter Summary ---
Author Organization [facility] Address [address] [place] [address] Care Team Providers Care System Archive Analyst Name Role Phone Chely Barnes Primary Care Provider + Reason for Visit * Reason Onset Date Comments Medication Problem 03/11/2024 No prior auth for wegovyNow requesting zepbound Encounter Details Date Type Department Care Team (Late st Contact Info) Description 03/11/2024 Telephone Internal Medicine - [place] [address] [place] [phone] Chely Barnes PA [address] [place] [address] Medication Problem (No prior auth for wegovy/Now requesting zepbound) Social History Tobacco Use Types Packs/Day Years Used Date Smoking Tobacco: Former Cigarettes Smokeless Tobacco: Never Comments:Quit smoking September 2023 Alcohol Use Standard [...] as of this encounter Progress Notes * Sarina Patiño - 03/11/2024 2:58 PM EST Confusion re: message in my chart from son Patient states she has not received the prior Auth for wegovy- Request is for provider to order ZEPBOUND Patient commented this has been a concern Since Please check with provider and respond to patient documented in this encounter Plan of Treatment Upcoming Encounters Date Type Department Care Team (Late st Contact Info) Description 06/10/2024 10:30 AM EDT Office Visit Internal Medicine - [place] [address] [phone] Chely Barnes PA [address] [phone] documented as of this encounter Visit Diagnoses Not on filedocumented in this encounter Care Teams System Archive Analyst Relationship Specialty Start Date End Date Chely Barnes PA [address] [address] PCP - General Primary Care 12/27/23 documented as of this encounter
== END 2024-03-12 11:22 | disposition home or self-care (01) ==
PROVIDERS: PCP Physician Assistant; Visit Provider Hospitalist
DX: G47.33 Obstructive sleep apnea (adult) (pediatric) (principal); J45.40 Moderate persistent asthma, uncomplicated; R60.0 Localized edema; R06.09 Other forms of dyspnea; R59.1 Generalized enlarged lymph nodes; G47.34 Idiopathic sleep related nonobstructive alveolar hypoventilation; R07.9 Chest pain, unspecified
CPT/HCPCS: 99214

== ENCOUNTER → 2024-03-12 10:38 | Outpatient (BNVA) | payer OTHER, SELFPAY | PROVIDERS: PCP Physician Assistant; Visit Provider Hospitalist | DX: G47.33 Obstructive sleep apnea (adult) (pediatric) (principal); G47.34 Idiopathic sleep related nonobstructive alveolar hypoventilation; J45.40 Moderate persistent asthma, uncomplicated; J44.9 Chronic obstructive pulmonary disease, unspecified; R59.1 Generalized enlarged lymph nodes; R60.0 Localized edema; R06.09 Other forms of dyspnea; R07.9 Chest pain, unspecified; E66.9 Obesity, unspecified; Z68.41 Body mass index [BMI] 40.0-44.9, adult | CPT/HCPCS: 99212 ==

== ENCOUNTER → 2024-04-18 14:09 | Outpatient (REF) | payer OTHER, SELFPAY ==
--- NOTE | 2024-04-18 14:14 | CA_ITS ---
Transthoracic Echocardiogram Patient (Last, First, Middle): Zaida Ji, Gender: Female Date of : 1975 Age: 48 Procedure Date: 04/18/2024 Procedure Type: Transthoracic Echocardiogram Location: OP Height: 160.02 cm Weight: 95.71 kg BSA: 1.98 m2 Heart Rate: bpm BP: 130 / 78 mmHg Tray Worker: TO Referring MD: Rodney Vazquez MD Symptoms: I27.20 - Pulmonary hypertension, unspecified Study Quality: Fair/NO IV ACCESS Conclusions: - Normal left ventricular size, thickness, systolic function, and wall motion. The visually estimated ejection fraction is between 60-65%. Diastolic function is normal for age. - Mildly increased right ventricular cavity size. There is normal right ventricular systolic function. - The left atrium is mildly dilated. The right atrium is mildly dilated. - Significantly elevated right atrial pressure. There is no evidence of pulmonary hypertension. Findings Left Ventricle Normal left ventricular size, thickness, systolic function, and wall motion. The visually estimated ejection fraction is between 60-65%. Diastolic function is normal for age. Right Ventricle Mildly increased right ventricular cavity size. There is normal right ventricular systolic function. Atria The left atrium is mildly dilated. The right atrium is mildly dilated. Aortic Valve Normal aortic valve structure and function. There is no aortic valve stenosis. There is no aortic valve regurgitation. Mitral Valve The mitral valve appears normal. There is no mitral valve regurgitation. There is no mitral valve stenosis. Pulmonic Valve The pulmonic valve is likely normal. Tricuspid Valve Normal tricuspid valve structure. There is trace tricuspid valve regurgitation. The right ventricular systolic pressure is 34 mmHg. Significantly elevated right atrial pressure. There is no evidence of pulmonary hypertension. Great Vessels All visible segments of the aorta are normal in size. The visualized portions of the pulmonary artery and branches are normal. Venous The inferior vena cava is dilated and collapses less than 50% with inspiration. Pericardium/Pleural There is no evidence of pericardial effusion. Prior Study Comparison No prior study available for comparison. Measurements 2D Linear Measurements IVSd: 0.89 0.6-0.9/0.6-1.0 cm LVIDd: 4.69 3.9-5.3/4.2-5.9 cm LVIDd Index: 2.37 2.4-3.2/2.2-3.1 cm/m2 LVIDs: 2.97 2.0-3.6 cm LVPWd: 0.93 0.7-1.1 cm LA Diam: 4.00 2.7-3.8/3.0-4.0 cm LAIDs Index: 2.02 1.5-2.3 cm/m2 LV Mass: 180.04 67-162/88-224 g LV Mass Index: 90.93 43-95/49-115 g/m2 LVOT Diam: 2.10 3.0+(-)1.3 cm 2D Systolic Function EF 4C: 62.30 >55% EF 2C: 61.00 >55% EF BiP: 61.40 >55% Mitral Valve MV Pk E: 0.84 MV PK A: 0.40 MV Decel Time: 155.00 E/A: 2.10 E'Lateral: 13.60 E'Medial: 9.79 E/E' Med: 8.60 E/E' Lat: 6.20 PHT: 45.00 MVA PHT: 4.89 Decel Wythe: 5.45 Aortic Valve AoV Pk Kye: 1.66 AoV Mn Kye: 1.09 AoV VTI: 0.34 AoV Pk Grad: 11.00 Aov Mn Grad: 5.00 PRIMO Cont.VTI: 2.13 LVOT LVOT Pk Kye: 1.07 LVOT Mn Kye: 0.77 LVOT VTI: 0.21 LVOT Pk Grad: 5.00 LVOT Mn Grad: 3.00 LVOT Diam: 2.10 LVOT Area: 3.46 Diastolic Function MV Pk E: 0.84 MV Pk A: 0.40 E/A: 2.10 E'Medial: 9.79 E/E' Med: 8.60 E' Laterial: 13.60 E/E' Lat: 6.20 Right Ventricle TAPSE (mm): 26.70 TVS' Kye: 16.10 Tricuspid Valve TR Pk Kye: 2.19 TR Pk Grad: 19.00 RA Press: 15.00 RVSP: 34.00 Great Vessels Aorta Sinus of Valsalva: 2.75 2.0-3.5 cm Ao Asc: 2.80 2.1-3.4 cm Updated in Other Vendor System with Status of Final Paul Martinez MD electronically signed on 04/20/2024 5:47:30 AM with status of Final
--- NOTE | 2024-04-18 14:14 | ECG_ITS ---
Test Reason : j44.9 Blood Pressure : */* mmHG Vent. Rate : 75 BPM Atrial Rate : 75 BPM P-R Int : 148 ms QRS Dur : 74 ms QT Int : 392 ms P-R-T Axes : 69 69 84 degrees QTcB Int : 437 ms Normal sinus rhythm Normal ECG No previous ECGs available Referred By: Rodney Vazquez Electronically Signed By: Paul Martinez
--- OUTSIDE RECORDS SUMMARY | 2024-04-18 16:22 | XMS_ITS | Encounter Summary ---
Author Organization [facility] Address [address] [place] [address] Care Team Providers Care Obiee Architect Name Role Phone Chely Barnes Primary Care Provider + Reason for Visit * Reason Comments Flank Pain Pt reports L flank p ain that radiates to abd that started yesterday. Cannot tolerate foods due to pain . Denies hx of kidney stones . States also has dysuria Encounter Details Date Type Department Care Team (Late st Contact Info) Description 03/27/2024 7:26 AM EST - 03/27/2024 10:05 AM EST Emergency [facility] Emergency [address] [place] [phone] Denys Linn MD [address] [place] [address] Cyst of left ovary (Primary Dx) Discharge Disposition: Home or Self Care Social History Tobacco Use Types Packs/Day Years Used Date Smoking Tobacco: Former Cigarettes Smokeless Tobacco: Never Comments:Quit smoking September 2023 Alcohol Use Standard Drinks/Week Comments No 0 (1 standard drink = 0.6 oz pur e alcohol) Comments No Sex and Gender Information Value Date Recorded Sex Assigned at Not on file Legal Sex Female 2:00 AM EST Gender Identity Not on file Sexual Orientation Not on file documented as of this encounter Last Filed Vital Signs Vital Sign Reading Time Taken Comments Blood Pressure 164/105 03/27/2024 9:10 AM EST Pulse 77 03/27/2024 9:10 AM EST Temperature 36.7 ??C (98 ??F) 03/27/2024 5:41 AM EST Respiratory Rate 24 03/27/2024 9:10 AM EST Oxygen Saturation 99% 03/27/2024 9:10 AM EST Inhaled Oxygen Concentration - - Weight 99.8 kg (220 lb) 03/27/2024 5:41 AM EST Height 160 cm (5' 3 ) 03/27/2024 5:41 AM EST Body Mass Index 38.97 03/27/2024 5:41 AM EST documented in this encounter Functional Status * Are you blind or do you have serious difficulty seeing, even when wearing glasses? Answer Date of Assessment Author No 03/27/2024 7:28 AM EST Partha Mathew RN * Do you have serious difficulty walking or climbing stairs? Answer Date of Assessment Author No 03/27/2024 7:28 AM Partha Bermeo RN * Do you have serious difficulty dressing or bathing? Answer Date of Assessment Author No 03/27/2024 7:28 AM Partha Bermeo RN * Because of a physical, mental, or emotional condition, do you have serious difficulty doing errandsalone such as visiting the doctor? Answer Date of Assessment Author No 03/27/2024 7:28 AM Partha Bermeo RN documented as of this encounter Mental Status * Because of a physical, mental, or emotional condition, do you have serious difficulty concentrating, remembering, or making decisions? (5 years old or older) Answer Entry Date Author No 03/27/2024 7:28 AM Partha Bermeo RN documented in this encounter Discharge Instructions * Attachments The following attachments cannot be sent through Care Everywhere. * Ovarian Growths: Noncancerous (Burmese) documented in this encounter Medications at Time of Discharge albuterol HFA (PROAIR HFA ; PROVENTIL HFA ; VENTOLIN HFA) 90 mcg/actuation inhaler Inhale 2 puffs by mouth every 4 (four) hours if needed. 03/16/2020 cetirizine (ZyrTEC) 10 mg tablet Take 1 tablet (10 mg total) by mouth 1 (one) time each day if needed for allergies. 03/01/2022 cholecalciferol (VITAMIN D-3) 50 mcg (2,000 unit) capsule Take 1 capsule (2,000 Units total) by mouth 1 (one) time each day. escitalopram (LEXAPRO) 20 mg tablet Take 1 tablet (20 mg total) by mouth 1 (one) time each day. 09/04/2022 esomeprazole (NexIUM) [address] capsule Take 1 capsule (40 mg total) by mouth 1 (one) time each day. 11/19/2023 fluticasone propionate (FLONASE) 50 mcg/actuation nasal spray Administer 2 sprays into each nostril 1 (one) time each day. SHAKE LIQUID 08/08/2023 furosemide (LASIX) 20 mg tablet Take 1 tablet (20 mg total) by mouth 1 (one) time each day. linaCLOtide (Linzess) 290 mcg capsule Take 1 capsule (290 mcg total) by mouth 1 (one) time each day. 90 capsule 1 01/29/2024 metoprolol succinate (TOPROL-XL) 50 mg 24 hr tablet Take 1 tablet (50 mg total) by mouth 1 (one) time each day. ondansetron ODT (ZOFRAN-ODT) 4 mg disintegrating tablet Dissolve 1 tablet (4 mg total) on top of the tongue every 8 (eight) hours if needed. polycarbophil (FIBERCON) 625 mg tablet Take 1 tablet (625 mg total) by mouth 1 (one) time each day. for 360 days. semaglutide (Wegovy) 1 mg/0.5 mL injection penIndications:Obes ity (BMI 30-39.9) Inject 1 mg under the skin every 7 (seven) days. 2 mL 2 03/26/2024 simethicone (MYLICON) 125 mg chewable tablet Chew 1 tablet (125 mg total) 4 (four) times a day if needed for flatulence. 07/07/2021 Trelegy Ellipta 200-62.5-25 mcg inhaler Inhale 1 puff (200 mcg total) by mouth 1 (one) time each day. 01/16/2024 ibuprofen (ADVIL,MOTRIN) 600 mg tablet Take 1 tablet (600 mg total) by mouth every 6 (six) hours if needed for mild pain for up to 10 days. 30 tablet 03/27/2024 5 traMADoL (ULTRAM) 50 mg tablet Take 1 tablet (50 mg total) by mouth every 6 (six) hours if needed for severe pain for up to 3 days. Max Daily Amount: 200 mg 12 tablet 03/27/2024 amitriptyline (ELAVIL) 25 mg tabletIndications:I nsomnia, unspecified type TAKE 1 TABLET(25 MG) BY MOUTH AT BEDTIME 30 tablet 1 03/05/2024 documented as of this encounter Ordered Prescriptions Prescription Sig Dispense Quantity Refills Last Filled Start Date End Date traMADoL (ULTRAM) 50 mg tablet Take 1 tablet (50 mg total) by mouth every 6 (six) hours if needed for severe pain for up to 3 days. Max Daily Amount: 200 mg 12 tablet 03/27/2024 03/30/2024 ibuprofen (ADVIL,MOTRIN) 600 mg tablet Take 1 tablet (600 mg total) by mouth every 6 (six) hours if needed for mild pain for up to 10 days. 30 tablet 03/27/2024 04/06/2024 documented in this encounter Discharge Disposition Disposition Code Departure Means Destination Comment s Home or Self Care documented in this encounter Progress Notes * Lindsay Villegas RN - 03/27/2024 5:44 AM EST Pt also reports has made etsher for obgyn for possible cyst * Lindsay Villegas RN - 03/27/2024 5:37 AM EST Pt reports L flank pain that radiates to abd that started yesterday. Cannot tolerate foods due to pain . Denies hx of kidney stones . States also has dysuria * Denys Linn MD - 03/27/2024 5:35 AM EST Emergency Medicine Note Patient Name: Zaida Ji Initial Evaluation: 03/27/2024 : 1975 Patient's PCP: [facility] Emergency Physician: NOHEMI Dockery History of Present Illness Chief Complaint: Chief Complaint Patient presents with Flank Pain Pt reports L flank pain that radiates to abd that started yesterday. Cannot tolerate foods due to pain . Denies hx of kidney stones . States also has dysuria HPI: This is a 48-year-old female who presents to the ED with a 24-hour history of left flank pain and dysuria. Denies history of similar symptoms. No history of kidney stones. Denies vaginal bleeding or vaginal discharge. She has had nausea with vomiting. She has a history of pseudotumor cerebri and has a DIRECTOR TRANSLATIONAL shunt. Also has a history of cholecystectomy but no other abdominal surgeries. No associated chest pain or difficulty breathing. Pain is 10/10. ROS: GENERAL: No fever, no chills, no acute distress OPHTHALMOLOGY: No vision changes, no redness, or discharge ENT: No sore throat , no nosebleed CARDIOVASCULAR: No chest pain, no peripheral edema RESPIRATORY: No dyspnea, no sputum production, and no cough MUSCULOSKELETAL: No myalgias, no back pain, and no neck pain. + Left flank pain GI: No abdominal pain, + nausea, + vomiting, no diarrhea. No black stool, bright red blood per rectum, or constipation. GENITOURINARY: + Dysuria, no urgency, no frequency NEUROLOGY: No paresthesias, no weakness, No headache PSYCHIATRIC: No depression, no suicidality, or intent of self-harm DERMATOLOGY: No rash no pruritus IMMUNOLOGY: No immunocompromise HEMATOLOGY: No bleeding, no bruising Previous History Past Medical History: Diagnosis Date Anxiety and depression Asthma DX:Asthma; COMMENT: Dr Erazo at [facility] H/O total knee replacement, right 02/29/2016 DX:H/O total knee replacement, right HTN (hypertension) Migraine DX:Migraine; COMMENT: Dr peck in [facility] Morbid obesity with BMI of 40.0-44.9, adult ([facility]/H[facility]) 03/29/2018 DX:Morbid obesity with BMI of 40.0-44.9, adult ([facility]) Pseudotumor cerebri DX:Pseudotumor cerebri; COMMENT: follows with Dr Bergman [facility] S/P DIRECTOR TRANSLATIONAL shunt DX:S/P DIRECTOR TRANSLATIONAL shunt Tobacco abuse disorder DX:Tobacco abuse disorder Trigger finger 06/25/2017 DX:Trigger finger Vitamin D deficiency DX:Vitamin D deficiency Past Surgical History: Procedure Laterality Date CARPAL TUNNEL RELEASE 2016 PROCEDURE: NE NEUROPLASTY &/TRANSPOS MEDIAN NRV CARPAL TUNNE CHOLECYSTECTOMY 2001 PROCEDURE: HISTORICAL CHOLECYSTECTOMY COLONOSCOPY 08/24/2021 PROCEDURE: HISTORICAL COLONOSCOPY; COMMENT: negative/fair prep ESOPHAGOGASTRODUODENOSCOPY 08/24/2021 PROCEDURE: NE EGD TRANSORAL BIOPSY SINGLE/MULTIPLE; COMMENT: hiatal hernia. biopsy with H.pylori gastritis OTHER SURGICAL HISTORY PROCEDURE: ---- OTHER ----; COMMENT: v/p shunt - 4 years ago, done at [facility] by Dr anders TOTAL KNEE ARTHROPLASTY Right PROCEDURE: HISTORICAL TOTAL KNEE REPLACE; COMMENT: 2015 Social History Tobacco Use Smoking status: Former Types: Cigarettes Smokeless tobacco: Never Tobacco comments: Quit smoking September 2023 Substance Use Topics Alcohol use: No Drug use: No Family History Problem Relation Name Age of Onset Stroke Mother Other (Other: a fib) Mother Coronary artery disease Mother Hypertension Father dm, glaucoma, at 50s Other cancer Maternal Grandmother cervical Prostate cancer Maternal Grandfather Other cancer Paternal Grandmother cervical Prostate cancer Paternal Grandfather is allergic to amoxicillin and morphine. No current facility-administered medications on file prior to encounter. Current Outpatient Medications on File Prior to Encounter Medication Sig Dispense Refill albuterol HFA (PROAIR HFA ; PROVENTIL HFA ; VENTOLIN HFA) 90 mcg/actuation inhaler Inhale 2 puffs by mouth every 4 (four) hours if needed. amitriptyline (ELAVIL) 25 mg tablet TAKE 1 TABLET(25 MG) BY MOUTH AT BEDTIME 30 tablet 1 cetirizine (ZyrTEC) 10 mg tablet Take 1 tablet (10 mg total) by mouth 1 (one) time each day if needed for allergies. cholecalciferol (VITAMIN D-3) 50 mcg (2,000 unit) capsule Take 1 capsule (2,000 Units total) by mouth 1 (one) time each day. escitalopram (LEXAPRO) 20 mg tablet Take 1 tablet (20 mg total) by mouth 1 (one) time each day. esomeprazole (NexIUM) [address] capsule Take 1 capsule (40 mg total) by mouth 1 (one) time each day. fluticasone propionate (FLONASE) 50 mcg/actuation nasal spray Administer 2 sprays into each nostril1 (one) time each day. SHAKE LIQUID furosemide (LASIX) 20 mg tablet Take 1 tablet (20 mg total) by mouth 1 (one) time each day. linaCLOtide (Linzess) 290 mcg capsule Take 1 capsule (290 mcg total) by mouth 1 (one) time each day. 90 capsule 1 metoprolol succinate (TOPROL-XL) 50 mg 24 hr tablet Take 1 tablet (50 mg total) by mouth 1 (one) time each day. ondansetron ODT (ZOFRAN-ODT) 4 mg disintegrating tablet Dissolve 1 tablet (4 mg total) on top of the tongue every 8 (eight) hours if needed. polycarbophil (FIBERCON) 625 mg tablet Take 1 tablet (625 mg total) by mouth 1 (one) time each day.for 360 days. semaglutide (Wegovy) 1 mg/0.5 mL injection pen Inject 1 mg under the skin every 7 (seven) days. 2 mL 2 simethicone (MYLICON) 125 mg chewable tablet Chew 1 tablet (125 mg total) 4 (four) times a day if needed for flatulence. Trelegy Ellipta 200-62.5-25 mcg inhaler Inhale 1 puff (200 mcg total) by mouth 1 (one) time each day. [DISCONTINUED] semaglutide (Wegovy) 1 mg/0.5 mL injection pen Inject 1 mg under the skin every 7 (seven) days. 2 mL 2 Physical Exam ED Triage Vitals [03/27/24 0541] Temp Heart Rate Resp BP 36.7 ??C (98 ??F) 85 17 (!) 144/91 SpO2 Temp Source Heart Rate Source Patient Position 98 % Oral -- -- BP Location FiO2 (%) -- -- General: Well-appearing, well nourished, appears uncomfortable HEENT: PERRL, EOMI, external ears and nose appear unremarkable, airway is patent Neck: Supple, full range of motion Chest: Clear to auscultation; no evidence of respiratory distress Circulatory: RRR, extremities well perfused Abdomen: Pain with palpation over the left upper and lower abdomen and left flank. No rebound or guarding. Positive bowel sounds. Soft, nondistended. Extremities: Normal ROM, No edema Skin: Warm and dry Neuro: Alert and oriented, no focal deficits Results Labs Reviewed COMPREHENSIVE METABOLIC PANEL - Abnormal Result Value Sodium 134 Potassium 3.4 (*) Chloride 103 CO2 23 Anion Gap 8 Glucose 130 (*) BUN 10 Creatinine 0.76 eGFR 96 BUN/Creatinine Ratio 13.2 Calcium 8.8 AST (SGOT) 55 (*) ALT (SGPT) 57 Alkaline Phosphatase 130 (*) Total Protein 7.4 Albumin 3.6 Total Bilirubin 0.5 CBC WITH AUTO DIFFERENTIAL - Abnormal WBC 4.7 (*) RBC 4.60 Hemoglobin 13.9 Hematocrit 39.2 MCV 85.4 MCH 30.3 MCHC 35.5 RDW 12.7 Platelets 187 MPV 10.0 NRBC 0.0 NRBC Absolute 0.00 Neutrophils Relative 82.5 Lymphocytes Relative 8.9 Monocytes Relative 8.2 Eosinophils Relative 0.0 Basophils Relative 0.0 Immature Granulocytes Relative 0.4 Neutrophils Absolute 3.91 Lymphocytes Absolute 0.42 (*) Monocytes Absolute 0.39 Eosinophils Absolute 0.00 Basophils Absolute 0.00 Immature Granulocytes Absolute 0.02 URINALYSIS WITH REFLEX MICROSCOPIC AND CULTURE - Abnormal Specific [place] Urine 1.022 pH, Urine 8.0 Leukocytes, Urine Negative Nitrite, Urine Negative Protein, Urine 30 (*) Glucose, Urine Negative Ketones, Urine Trace (*) Urobilinogen, Urine 1.0 Bilirubin, Urine Negative Blood, Urine Negative RBC, Urine 0.1 WBC, Urine 1.8 Squamous Epithelial, Urine 48 Bacteria, Urine Negative Hyaline Casts, Urine 0.4 LIPASE - Normal Lipase 16 CBC AND DIFFERENTIAL Narrative: The following orders were created for panel order CBC and differential. Procedure Abnormality Status --------- ------ CBC auto differential[[id number]] Abnormal Final result Please view results for these tests on the individual orders. URINALYSIS WITH REFLEX MICROSCOPIC AND CULTURE Narrative: The following orders were created for panel order Urinalysis with reflex microscopic and culture. Procedure Abnormality Status --------- ------ Urinalysis with reflex ...[[id number]] Abnormal Final result [place] urine culture tube[[id number]] Final result Please view results for these tests on the individual orders. Abnormal Labs Reviewed COMPREHENSIVE METABOLIC PANEL - Abnormal; Notable for the following components: Result Value Potassium 3.4 (*) Glucose 130 (*) AST (SGOT) 55 (*) Alkaline Phosphatase 130 (*) All other components within normal limits CBC WITH AUTO DIFFERENTIAL - Abnormal; Notable for the following components: WBC 4.7 (*) Lymphocytes Absolute 0.42 (*) All other components within normal limits URINALYSIS WITH REFLEX MICROSCOPIC AND CULTURE - Abnormal; Notable for the following components: Protein, Urine 30 (*) Ketones, Urine Trace (*) All other components within normal limits CT Abdomen Pelvis wo Contrast Final Result 1. Mild mural thickening of the esophagus with adjacent inflammatory fat stranding, suggestive of esophagitis. There is also inflammatory stranding centered around the duodenum suggestive of duodenitis. 2. No renal collecting system calculus. -------- FINAL REPORT -------- Dictated By: Grady Ziegler Dictated Date: 03/27/2024 08:37 ET Assigned Physician: Grady Ziegler Reviewed and Electronically Signed By: Grady Ziegler Signed Date: 03/27/2024 08:46 ET Workstation ID: [id number] Transcribed By: Self Edit Transcribed Date: 03/27/2024 08:37 ET US Pelvis Non OB Complete w Transvaginal Final Result 1. Normal appearance of the uterus. Neither ovary visualized. 2. Moderate free fluid in the pelvis. 3. Nonspecific simple appearing cyst measuring up to 2.5 cm in the left adnexa. Site of origin is not established on this study. -------- FINAL REPORT -------- Dictated By: Grady Ziegler Dictated Date: 03/27/2024 07:53 ET Assigned Physician: Grady Ziegler Reviewed and Electronically Signed By: Grady Ziegler Signed Date: 03/27/2024 07:56 ET Workstation ID: [id number] Transcribed By: Self Edit Transcribed Date: 03/27/2024 07:53 ET I have discussed the incidental/abnormal imaging and/or lab abnormalities with the patient and haveinstructed them the need for further evaluation and workup with their primary care doctor. I have provided the patient with a paper copy of the abnormality. The laboratory results, imaging results and other diagnostic exam results were reviewed in the EMR. EKG Interpretation Critical Care Time None ? Medical Decision Making Medications ketorolac (TORADOL) injection 30 mg (has no administration in time range) acetaminophen (TYLENOL) tablet 1,000 mg (1,000 mg oral Given 03/27/24 0717) sodium chloride 0.9 % bolus 1,000 mL (0 mL intravenous Stopped 03/27/24 0940) ondansetron (PF) (ZOFRAN) injection 4 mg (4 mg intravenous Given 03/27/24 0822) HYDROmorphone (PF) (DILAUDID) injection 1 mg (1 mg intravenous Given 03/27/24 0823) ED Course as of 03/27/24 0950 [facility] Mar 27, 2024 0816 Patient has a simple 2.5 cm left ovarian cyst. I am not convinced this is the source of her pain. CT pending. [] 0945 Workup reveals only the 2-1/2 cm left ovarian cyst. No signs of infection. Patient discharged with prescription for ibuprofen and tramadol. 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 Discharged in stable condition. [] ED Course User Index [] NOHEMI Dockery Clinical Impressions as of 03/27/24 0950 Cyst of left ovary Differential to include kidney stone, UTI, pyelonephritis, diverticulitis, epiploic appendagitis, ovarian cyst/torsion 7:57 AM. Labs reviewed and reassuring. UA pending. Patient had an abdominal ultrasound ordered which is also pending. Given IV fluids, Dilaudid and Zofran. Will reevaluate. May require CT imaging. Procedures Procedures Diagnosis 1. Cyst of left ovary Disposition Discharge ED Prescriptions Medication Sig Dispense Start Date End Date Auth. Provider ibuprofen (ADVIL,MOTRIN) 600 mg tablet Take 1 tablet (600 mg total) by mouth every 6 (six) hours ifneeded for mild pain for up to 10 days. 30 tablet 03/27/2024 04/06/2024 NOHEMI Dockery traMADoL (ULTRAM) 50 mg tablet Take 1 tablet (50 mg total) by mouth every 6 (six) hours if needed for severe pain for up to 3 days. Max Daily Amount: 200 mg 12 tablet 03/27/2024 03/30/2024 NOHEMI Dockery Physician Attestation I was available for consult in real time (during the shifts I was working) and if asked my input incare is as outlined by the documentation below by me. If not documented, then I did not participatein the care of this patient and have reviewed the chart as written. MD Becca Ventura PA 03/27/24 0757 NOHEMI Dockery 03/27/24 0950 Denys Linn MD 03/31/24 [id number] documented in this encounter Plan of Treatment Upcoming Encounters Date Type Department Care Team (Late st Contact Info) Description 05/02/2024 1:30 PM EDT Office Visit Internal Medicine [facility] [address] [facility] [address] [place] [phone] Chely Barnes PA [address] [facility] [place] [address] [place] [id number] 06/10/2024 10:30 AM EDT Office Visit Internal Medicine [facility] [address] [facility] [address] [place] [phone] Chely Barnes PA [address] [address] documented as of this encounter Procedures Procedure Name Priority Date/Time Associated Diagnosis Comments CT ABDOMEN PELVIS WO CONTRAST STAT 03/27/2024 8:33 AM EST URINALYSIS WITH REFLEX MICROSCOPIC AND CULTURE STAT 03/27/2024 7:37 AM EST HOBBS URINE CULTURE TUBE STAT 03/27/2024 7:37 AM EST URINALYSIS WITH REFLEX MICROSCOPIC AND CULTURE STAT 03/27/2024 7:37 AM EST US PELVIS NON OB COMPLETE W TRANSVAGINAL STAT 03/27/2024 6:45 AM EST CBC WITH AUTO DIFFERENTIAL STAT 03/27/2024 5:52 AM EST CBC AND DIFFERENTIAL STAT 03/27/2024 5:52 AM EST LIPASE STAT 03/27/2024 5:52 AM EST COMPREHENSIVE METABOLIC PANEL STAT 03/27/2024 5:52 AM EST documented in this encounter Results * CT Abdomen Pelvis wo Contrast (03/27/2024 8:33 AM EST) Anatomical Region Laterality Modality Body Computed Tomogra phy 03/27/2024 8:37 AM EST Impressions 03/27/2024 8:46 AM EST 1. ??Mild mural thickening of the esophagus with adjacent inflammatory fat stranding, suggestive of esophagitis. There is also inflammatory stranding centered around the duodenum suggestive of duodenitis. 2. ??No renal collecting system calculus. ?? -------- FINAL REPORT -------- Dictated By: Grady Ziegler Dictated Date: 03/27/2024 08:37 ET Assigned Physician: Grady Ziegler Reviewed and Electronically Signed By: Grady Ziegler Signed Date: 03/27/2024 08:46 ET Workstation ID: [id number] Transcribed By: Self Edit Transcribed Date: 03/27/2024 08:37 ET Narrative 03/27/2024 8:46 AM EST PROCEDURE: CT of the abdomen and pelvis without intravenous contrast. HISTORY: Left flank pain. COMPARISON: 06/16/2023. TECHNIQUE: Noncontrast CT of the abdomen and pelvis with coronal and sagittal reformats. Dose length product: 1110 mGy-cm. FINDINGS: Lung bases: m opacities suggestive of atelectasis. Cardiac: Normal. Liver: Limited evaluation without intravenous contrast. ??No visible abnormality. Biliary: Cholecystectomy. Pancreas: Limited evaluation without intravenous contrast. ??No visible abnormality. Spleen: Limited evaluation without intravenous contrast. ??No visible abnormality. Adrenal glands: Normal. Kidneys: Limited evaluation without intravenous contrast. ??No visible abnormality. ??Normal appearance of the ureters. Retroperitoneum: No mass or adenopathy. Abdominal vasculature: Scattered mild atherosclerotic calcifications. Bowel/mesentery: There is mild mural thickening of the distal esophagus with adjacent fat stranding. ??There is also inflammatory stranding in the paraduodenal fat. ??No obstruction or adenopathy. ??No mass or ascites. ??Normal appendix. Abdominal wall: A shunt catheter courses from the spinal canal at the L2-3 level along the lateral and right anterior abdominal wall, entering the peritoneal cavity just right of midline and looping to terminate deep to the abdominal wall in the left anterior abdomen. Pelvic nodes: No adenopathy. Pelvic organs: Normal. Bones: Small bone island in the right hip. ??Mild degenerative changes of the spine. Procedure Note Grady Ziegler MD - 03/27/2024 PROCEDURE: CT of the abdomen and pelvis without intravenous contrast. HISTORY: Left flank pain. COMPARISON: 06/16/2023. TECHNIQUE: Noncontrast CT of the abdomen and pelvis with coronal andsagittal reformats. Dose length product: 1110 mGy-cm. FINDINGS: Lung bases: m opacities suggestive of atelectasis. Cardiac: Normal. Liver: Limited evaluation without intravenous contrast. No visibleabnormality. Biliary: Cholecystectomy. Pancreas: Limited evaluation without intravenous contrast. No visibleabnormality. Spleen: Limited evaluation without intravenous contrast. No visibleabnormality. Adrenal glands: Normal. Kidneys: Limited evaluation without intravenous contrast. No visibleabnormality. Normal appearance of the ureters. Retroperitoneum: No mass or adenopathy. Abdominal vasculature: Scattered mild atherosclerotic calcifications. Bowel/mesentery: There is mild mural thickening of the distal esophaguswith adjacent fat stranding. There is also inflammatory stranding in theparaduodenal fat. No obstruction or adenopathy. No mass or ascites.Normal appendix. Abdominal wall: A shunt catheter courses from the spinal canal at the L2-3level along the lateral and right anterior abdominal wall, entering theperitoneal cavity just right of midline and looping to terminate deep tothe abdominal wall in the left anterior abdomen. Pelvic nodes: No adenopathy. Pelvic organs: Normal. Bones: Small bone island in the right hip. Mild degenerative changes ofthe spine. IMPRESSION: 1. Mild mural thickening of the esophagus with adjacent inflammatory fatstranding, suggestive of esophagitis. There is also inflammatory strandingcentered around the duodenum suggestive of duodenitis. 2. No renal collecting system calculus. -------- FINAL REPORT -------- Dictated By: Grady Ziegler Dictated Date: 03/27/2024 08:37 ET Assigned Physician: Grady Ziegler Reviewed and Electronically Signed By: Grady Ziegler Signed Date: 03/27/2024 08:46 ET Workstation ID: [id number] Transcribed By: Self Edit Transcribed Date: 03/27/2024 08:37 ET us Becca SONG IMG CT PROCEDURES Final Resul t * [place] urine culture tube (03/27/2024 7:37 AM EST) [facility] Extra Tube Hold for add-ons. 03/27/2024 9:01 AM EST [facility] Comment:Auto resulted. Urine Urine specimen obtained by clean catch procedure / Unknown Non-blood Collection / Unknown 03/27/2024 7:37 AM EST 03/27/2024 7:44 AM EST us Yasmeen Rubio MD LAB URINE ORDERABLES Fin al Result [facility] [address] [place] [address], [place] [phone] * (ABNORMAL) Urinalysis with reflex microscopic and culture (03/27/2024 7:37 AM EST) [facility] Specific [place] Urine 1.022 1.003 - 1.030 LAB URINALYSIS - AUTOMATED METHOD 03/27/2024 8:22 AM EST [facility] pH, Urine 8.0 5.0 - 8.0 pH LAB URINALYSIS - AUTOMATED METHOD 03/27/2024 8:22 AM [facility] Leukocytes, Urine Negative Negative LAB URINALYSIS - AUTOMATED METHOD 03/27/2024 8:22 AM [facility] Nitrite, Urine Negative Negative LAB URINALYSIS - AUTOMATED METHOD 03/27/2024 8:22 AM [facility] Protein, Urine 30(A) <=Trace mg/dL LAB URINALYSIS - AUTOMATED METHOD 03/27/2024 8:22 AM [facility] Glucose, Urine Negative Negative mg/dL LAB URINALYSIS - AUTOMATED METHOD 03/27/2024 8:22 AM [facility] Ketones, Urine Trace(A) Negative mg/dL LAB URINALYSIS - AUTOMATED METHOD 03/27/2024 8:22 AM [facility] Urobilinogen, Urine 1.0 0.2 - 1.0 mg/dL LAB URINALYSIS - AUTOMATED METHOD 03/27/2024 8:22 AM [facility] Bilirubin, Urine Negative Negative LAB URINALYSIS - AUTOMATED METHOD 03/27/2024 8:22 AM [facility] Blood, Urine Negative Negative LAB URINALYSIS - AUTOMATED METHOD 03/27/2024 8:22 AM [facility] RBC, Urine 0.1 0 - 4 /HPF LAB URINALYSIS - AUTOMATED METHOD 03/27/2024 8:22 AM [facility] WBC, Urine 1.8 0 - 4 /HPF LAB URINALYSIS - AUTOMATED METHOD 03/27/2024 8:22 AM [facility] Squamous Epithelial, Urine 48 0 - 60 /LPF LAB URINALYSIS - AUTOMATED METHOD 03/27/2024 8:22 AM [facility] Bacteria, Urine Negative Negative /HPF LAB URINALYSIS - AUTOMATED METHOD 03/27/2024 8:22 AM [facility] Hyaline Casts, Urine 0.4 0 - 3 /LPF LAB URINALYSIS - AUTOMATED METHOD 03/27/2024 8:22 AM [facility] Urine Urine specimen obtained by clean catch procedure / Unknown Non-blood Collection / Unknown 03/27/2024 7:37 AM EST 03/27/2024 7:44 AM EST us Yasmeen Rubio MD LAB URINE ORDERABLES Fin al Result [facility] [address] [place] [address], [place] [phone] * US Pelvis Non OB Complete w Transvaginal (03/27/2024 6:45 AM EST) Anatomical Region Laterality Modality Body, Pelvis Ultrasound 03/27/2024 7:53 AM EST Impressions 03/27/2024 7:56 AM EST 1. ??Normal appearance of the uterus. ??Neither ovary visualized. 2. ??Moderate free fluid in the pelvis. 3. ??Nonspecific simple appearing cyst measuring up to 2.5 cm in the left adnexa. ??Site of origin is not established on this study. ?? -------- FINAL REPORT -------- Dictated By: Grady Ziegler Dictated Date: 03/27/2024 07:53 ET Assigned Physician: Grady Ziegler Reviewed and Electronically Signed By: Grady Ziegler Signed Date: 03/27/2024 07:56 ET Workstation ID: [id number] Transcribed By: Self Edit Transcribed Date: 03/27/2024 07:53 ET Narrative 03/27/2024 7:56 AM EST Procedure: Ultrasound of the pelvis. HISTORY: pain. TECHNIQUE: Transabdominal and endovaginal grayscale, color Doppler, and spectral Doppler ultrasound evaluation of the pelvis. COMPARISON: CT 06/16/2023. FINDINGS: The uterus is anteverted and measures 8.0 x 3.8 x 4.3 cm. ??Endometrial stripe is within normal limits, measuring 4 mm. ??No myometrial abnormality. Neither ovary could be identified. There is moderate free fluid in the pelvis. 2.3 x 1.4 x 2.5 cm simple appearing cyst without apparent associated Doppler flow in the left adnexa. Procedure Note Grady Ziegler MD - 03/27/2024 Procedure: Ultrasound of the pelvis. HISTORY: pain. TECHNIQUE: Transabdominal and endovaginal grayscale, color Doppler, andspectral Doppler ultrasound evaluation of the pelvis. COMPARISON: CT 06/16/2023. FINDINGS: The uterus is anteverted and measures 8.0 x 3.8 x 4.3 cm. Endometrialstripe is within normal limits, measuring 4 mm. No myometrialabnormality. Neither ovary could be identified. There is moderate free fluid in the pelvis. 2.3 x 1.4 x 2.5 cm simple appearing cyst without apparent associatedDoppler flow in the left adnexa. IMPRESSION: 1. Normal appearance of the uterus. Neither ovary visualized. 2. Moderate free fluid in the pelvis. 3. Nonspecific simple appearing cyst measuring up to 2.5 cm in the leftadnexa. Site of origin is not established on this study. -------- FINAL REPORT -------- Dictated By: Grady Ziegler Dictated Date: 03/27/2024 07:53 ET Assigned Physician: Grady Ziegler Reviewed and Electronically Signed By: Grady Ziegler Signed Date: 03/27/2024 07:56 ET Workstation ID: [id number] Transcribed By: Self Edit Transcribed Date: 03/27/2024 07:53 ET us Yasmeen Rubio MD [facility] [place] PROCEDURES Final Result * (ABNORMAL) CBC auto differential (03/27/2024 5:52 AM EST) WBC 4.7(L) 4.8 - 10.8 K/mcL LAB HEMETOLOGY METHOD 03/27/2024 6:00 AM [facility] RBC 4.60 3.80 - 4.80 M/mcL LAB HEMETOLOGY METHOD 03/27/2024 6:00 AM [facility] Hemoglobin 13.9 11.5 - 16.0 g/dL LAB HEMETOLOGY METHOD 03/27/2024 6:00 AM [facility] Hematocrit 39.2 35.0 - 47.0 % LAB HEMETOLOGY METHOD 03/27/2024 6:00 AM [facility] MCV 85.4 79.0 - 98.0 FL LAB HEMETOLOGY METHOD 03/27/2024 6:00 AM [facility] MCH 30.3 27.0 - 32.0 pcg LAB HEMETOLOGY METHOD 03/27/2024 6:00 AM [facility] MCHC 35.5 32.0 - 37.0 g/dL LAB HEMETOLOGY METHOD 03/27/2024 6:00 AM [facility] RDW 12.7 11.0 - 15.0 % LAB HEMETOLOGY METHOD 03/27/2024 6:00 AM [facility] Platelets 187 130 - 400 K/mcL LAB HEMETOLOGY METHOD 03/27/2024 6:00 AM [facility] MPV 10.0 7.0 - 11.0 FL LAB HEMETOLOGY METHOD 03/27/2024 6:00 AM [facility] NRBC 0.0 <1.0 % LAB HEMETOLOGY METHOD 03/27/2024 6:00 AM [facility] NRBC Absolute 0.00 <0.10 K/mcL LAB HEMETOLOGY METHOD 03/27/2024 6:00 AM [facility] Neutrophils Relative 82.5 % LAB HEMETOLOGY METHOD 03/27/2024 6:00 AM [facility] Lymphocytes Relative 8.9 % LAB HEMETOLOGY METHOD 03/27/2024 6:00 AM [facility] Monocytes Relative 8.2 % LAB HEMETOLOGY METHOD 03/27/2024 6:00 AM [facility] Eosinophils Relative 0.0 % LAB HEMETOLOGY METHOD 03/27/2024 6:00 AM [facility] Basophils Relative 0.0 % LAB HEMETOLOGY METHOD 03/27/2024 6:00 AM [facility] Immature Granulocytes Relative 0.4 % LAB HEMETOLOGY METHOD 03/27/2024 6:00 AM EST [facility] Neutrophils Absolute 3.91 1.50 - 7.00 K/[facility] LAB HEMETOLOGY METHOD 03/27/2024 6:00 AM [facility] Lymphocytes Absolute 0.42(L) 1.00 - 5.00 K/mcL LAB HEMETOLOGY METHOD 03/27/2024 6:00 AM [facility] Monocytes Absolute 0.39 0.20 - 1.00 K/[facility] LAB HEMETOLOGY METHOD 03/27/2024 6:00 AM [facility] Eosinophils Absolute 0.00 0.00 - 0.50 K/[facility] HEMETOLOGY METHOD 03/27/2024 6:00 AM [facility] Basophils Absolute 0.00 0.00 - 0.20 K/mcL LAB HEMETOLOGY METHOD 03/27/2024 6:00 AM [facility] Immature Granulocytes Absolute 0.02 0.00 - 0.03 K/mcL LAB HEMETOLOGY METHOD 03/27/2024 6:00 AM [facility] Blood Venous blood specimen / Unknown Venipuncture / Unknown 03/27/2024 5:52 AM EST 03/27/2024 5:56 AM EST us Yasmeen Rubio MD LAB BLOOD ORDERABLES Fin al Result [facility] [address] [place] [address], * Lipase (03/27/2024 5:52 AM EST) Lipase 16 13 - 75 unit/L LAB CHEMISTRY METHOD 03/27/2024 6:21 AM EST [facility] Blood Venous blood specimen / Unknown Venipuncture / Unknown 03/27/2024 5:52 AM EST 03/27/2024 5:56 AM EST us Yasmeen Rubio MD LAB BLOOD ORDERABLES Fin al Result [facility] [address] [place] [address], [place] [phone] * (ABNORMAL) Comprehensive metabolic panel (03/27/2024 5:52 AM EST) Sodium 134 133 - 145 mmol/L LAB CHEMISTRY METHOD 03/27/2024 6:21 AM [facility] Potassium 3.4(L) 3.5 - 5.5 mmol/L LAB CHEMISTRY METHOD 03/27/2024 6:21 AM [facility] Chloride 103 96 - 110 mmol/L LAB CHEMISTRY METHOD 03/27/2024 6:21 AM [facility] CO2 23 21 - 32 mmol/L LAB CHEMISTRY METHOD 03/27/2024 6:21 AM [facility] Anion Gap 8 3 - 11 LAB CHEMISTRY METHOD 03/27/2024 6:21 AM [facility] Glucose 130(H) 70 - 100 mg/dL LAB CHEMISTRY METHOD 03/27/2024 6:21 AM [facility] BUN 10 5 - 25 mg/dL LAB CHEMISTRY METHOD 03/27/2024 6:21 AM [facility] Creatinine 0.76 0.50 - 1.10 mg/dL LAB CHEMISTRY METHOD 03/27/2024 6:21 AM [facility] eGFR 96 >=60 mL/min/1. 73m2 LAB CHEMISTRY METHOD 03/27/2024 6:21 AM [facility] Comment:Calculation based on the??Chronic Kidney Disease Epidemiology Collaboration (CKD-EPI) equation refit??without adjustment for race. BUN/Creatinine Ratio 13.2 LAB CHEMISTRY METHOD 03/27/2024 6:21 AM [facility] Calcium 8.8 8.5 - 10.5 mg/dL LAB CHEMISTRY METHOD 03/27/2024 6:21 AM EST [facility] AST (SGOT) 55(H) 10 - 42 unit/L LAB CHEMISTRY METHOD 03/27/2024 6:21 AM [facility] ALT (SGPT) 57 10 - 60 unit/L LAB CHEMISTRY METHOD 03/27/2024 6:21 AM [facility] Alkaline Phosphatase 130(H) 42 - 121 unit/L LAB CHEMISTRY METHOD 03/27/2024 6:21 AM [facility] Total Protein 7.4 6.0 - 8.0 g/dL LAB CHEMISTRY METHOD 03/27/2024 6:21 AM [facility] Albumin 3.6 3.2 - 5.0 g/dL LAB CHEMISTRY METHOD 03/27/2024 6:21 AM [facility] Total Bilirubin 0.5 0.0 - 1.4 mg/dL LAB CHEMISTRY METHOD 03/27/2024 6:21 AM [facility] Blood Venous blood specimen / Unknown Venipuncture / Unknown 03/27/2024 5:52 AM EST 03/27/2024 5:56 AM EST us Yasmeen Rubio MD LAB BLOOD ORDERABLES Fin al Result [facility] [address] [place] [address], documented in this encounter Visit Diagnoses Diagnosis Cyst of left ovary- Primary Other and unspecified ovarian cyst documented in this encounter Administered Medications Inactive Administered Medications - up to 3 most recent administrations Medication Order MAR Action Action Date Dose Rate Site acetaminophen (TYLENOL) tablet 1,000 mg 1,000 mg, oral, Once, On Julia 03/27/24 at 0714, For 1 dose Given 03/27/2024 7:17 AM EST 1,000 mg HYDROmorphone (PF) (DILAUDID) injection 1 mg 1 mg, intravenous, Once, On Julia 03/27/24 at 0756, For 1 dose Given 03/27/2024 8:23 AM EST 1 mg ketorolac (TORADOL) injection 30 mg 30 mg, intravenous, Once, On Julia 03/27/24 at 0927, For 1 dose Given 03/27/2024 9:48 AM EST 30 mg ondansetron (PF) (ZOFRAN) injection 4 mg 4 mg, intravenous, Once, On Julia 03/27/24 at 0756, For 1 dose Given 03/27/2024 8:22 AM EST 4 mg sodium chloride 0.9 % bolus 1,000 mL 1,000 mL, intravenous, at 2,000 mL/hr, Administer over 30 Minutes, Once, On Julia 03/27/24 at 0756, For 1 dose New Bag 03/27/2024 8:21 AM EST 1,000 mL 2000 mL/hr documented in this encounter Active and Recently Administered Medications Times are shown in EST. Scheduled Medication Order 03/25/2024 03/26/2024 03/27/2024 acetaminophen (TYLENOL) tablet 1,000 mg (COMPLETED) 1,000 mg, oral, Once, On Julia 03/27/24 at 0714, For 1 dose 07 (Given - Provid er: Janeen Johnston RN) HYDROmorphone (PF) (DILAUDID) injection 1 mg (COMPLETED) 1 mg, intravenous, Once, On Julia 03/27/24 at 0756, For 1 dose 0823 (Given - Provid er: Partha Mathew RN) ketorolac (TORADOL) injection 30 mg (COMPLETED) 30 mg, intravenous, Once, On Julia 03/27/24 at 0927, For 1 dose 0948 (Given - Provid er: Partha Mathew RN) ondansetron (PF) (ZOFRAN) injection 4 mg (COMPLETED) 4 mg, intravenous, Once, On Julia 03/27/24 at 0756, For 1 dose 0822 (Given - Provid er: Partha Mathew RN) sodium chloride 0.9 % bolus 1,000 mL (COMPLETED) 1,000 mL, intravenous, at 2,000 mL/hr, Administer over 30 Minutes, Once, On Julia 03/27/24 at 0756, For 1 dose 0821 (New Bag - Prov ider: Partha Mathew, KEILA)[id number] (Stopped - Provider: Partha Mathew RN) documented in this encounter Care Teams Obiee Architect Relationship Specialty Start Date End Date Chely Barnes PA [address] [address] PCP - General Primary Care 12/27/23 documented as of this encounter
--- OUTSIDE RECORDS SUMMARY | 2024-04-18 16:22 | XMS_ITS | Encounter Summary ---
Author Organization [facility] Address [address] [place] [address] Care Team Providers Care Electrical/Instrument Technician Name Role Phone Chely Barnes Primary Care Provider + Reason for Visit * Reason Onset Date Comments Medication Problem 03/11/2024 No prior auth for wegovyNow requesting zepbound Encounter Details Date Type Department Care Team ([facility] st Contact Info) Description 03/11/2024 Telephone Internal Medicine - [place] [address] [facility] [address] [place] [phone] Chely Barnes PA [address] [facility] [address] [place] [address] Medication Problem (No prior auth for wegovy/Now [...] as of this encounter Progress Notes * NOHEMI Shore - 03/13/2024 8:46 AM EST OK so she has not been taking Wegovy? I saw her 02/07/2024 and she was on Wegovy 0.5 mg weekly for which we increased her dose to 1 mg weekly. She waiting on a prior authorization for the Wegovy 1 mg? I need clarification as she was never prescribed Zepbound. I am wondering if maybe her insurance now prefers Zepbound over Wegovy?? * April Phipps [place] - 03/12/2024 2:51 PM EST Pls advise? Prior Auths usually take about 2 weeks to be completed * Sarina Patiño - 03/11/2024 2:58 PM [...] 1:30 PM EDT Office Visit Internal Medicine [facility] [address] [facility] [address] [place] [phone] Chely Barnes PA [address] [place] [phone] 06/10/2024 10:30 AM EDT Office Visit Internal Medicine [facility] [address] [place] [phone] Chely Barnes PA [address] [place] [address] documented as of this encounter Visit Diagnoses Not on filedocumented in this encounter Care Teams Electrical/Instrument Technician Relationship Specialty Start Date End Date Chely Barnes PA [address] [place] [address] PCP - General Primary Care 12/27/23 documented as of this encounter
--- OUTSIDE RECORDS SUMMARY | 2024-04-18 16:22 | XMS_ITS | Clinical Summary ---
Author Organization [facility] Address [address] [place] [address] Phone Care Team Providers Care Power Builder Developer Name Role Phone Chely Barnes Primary Care Provider + Allergies Active Allergy Reactions Criticality Noted Date Comments Amoxicillin Hives 12/27/2023 Morphine Hives 12/27/2023 Medications furosemide (LASIX) 20 mg tablet Take 1 tablet (20 mg total) by mouth 1 (one) time each day. Active linaCLOtide (Linzess) 290 mcg capsule Take 1 capsule (290 mcg total) by mouth 1 (one) time each day. 90 capsule 1 024 2024 Active cetirizine (ZyrTEC) 10 mg tablet Take 1 tablet (10 mg total) by mouth 1 (one) time each day if needed for allergies. 023 Active esomeprazole (NexIUM) [address] capsule Take 1 capsule (40 mg total) by mouth 1 (one) time each day. 024 Active escitalopram (LEXAPRO) 20 mg tablet Take 1 tablet (20 mg total) by mouth 1 (one) time each day. 023 Active fluticasone propionate (FLONASE) 50 mcg/actuation nasal spray Administer 2 sprays into each nostril 1 (one) time each day. SHAKE LIQUID 024 Active ondansetron ODT (ZOFRAN-ODT) 4 mg disintegrating tablet Dissolve 1 tablet (4 mg total) on top of the tongue every 8 (eight) hours if needed. Active simethicone (MYLICON) 125 mg chewable tablet Chew 1 tablet (125 mg total) 4 (four) times a day if needed for flatulence. 022 Active cholecalciferol (VITAMIN D-3) 50 mcg (2,000 [...] mouth every 4 (four) hours if needed. 021 Active Trelegy Ellipta 200-62.5-25 mcg inhaler Inhale 1 puff (200 mcg total) by mouth 1 (one) time each day. 024 Active semaglutide (Wegovy) 1 mg/0.5 mL injection penIndications:Ob esity (BMI 30-39.9) Inject 1 mg under the skin every 7 (seven) days. 2 mL 2 025 Active amitriptyline (ELAVIL) 25 mg tabletIndications :Insomnia, unspecified type TAKE 1 TABLET(25 MG) BY MOUTH AT BEDTIME 90 tablet 1 025 Active semaglutide (Wegovy) 1 mg/0.5 mL injection penIndications:Ob esity (BMI 30-39.9) Inject 1 mg under the skin every 7 (seven) days. 2 mL 2 024 2024 Discontinued(R eorder) amitriptyline (ELAVIL) 25 mg tabletIndications :Insomnia, unspecified type TAKE 1 TABLET(25 MG) BY MOUTH AT BEDTIME 30 tablet 1 025 2024 Discontinued ibuprofen (ADVIL,MOTRIN) 600 mg tablet Take 1 tablet (600 mg total) by mouth every 6 (six) hours if needed for mild pain for up to 10 days. 30 tablet 025 2024 traMADoL (ULTRAM) 50 mg tablet Take 1 tablet (50 mg total) by mouth every 6 (six) hours if needed for severe pain for up to 3 days. Max Daily Amount: 200 mg 12 tablet 025 2024 Active Problems Problem Noted Date Diagnosed Date [...] Encounters Date Type Department Care Team Description 04/10/2024 Telephone Internal Medicine [facility] [address] [phone] Chely Barnes PA Hospital Follow-up 03/27/2024 7:26 AM EST - 03/27/2024 10:05 AM EST Emergency [facility] [address] [place] [phone] Denys Linn MD Cyst of left ovary (Primary Dx) Discharge Disposition: Home or Self Care 03/25/2024 Telephone Internal Medicine - [place] [address] [phone] Chely Barnes PA Prior Authorization 03/11/2024 Telephone Internal Medicine [facility] [address] [phone] Chely Barnes PA Medication Problem (No prior auth for wegovy/Now requesting zepbound) 02/07/2024 9:30 AM EST Office Visit Internal Medicine [facility] [address] [phone] Chely Barnes PA Primary hypertension (Primary Dx); Moderate persistent asthma without complication; Tobacco abuse disorder; Anxiety and depression; Insomnia, unspecified type; Obesity (BMI 30-39.9) 01/23/2024 Telephone Internal Medicine - [address] [place] [address] Chely Barnes PA Prior Authorization from Last 3 Months Immunizations Name Administration Dates Next Due Pfizer SARS-CoV-2 COVID-19, mRNA, LNP-S, preservative free 02/22/2021 Surgical History Surgery Date Site/Laterality Comments OTHER SURGICAL HISTORY PROCEDURE: ---- OTHER ----; COMMENT: v/p shunt - 4 years ago, done at [facility] by Dr anders CHOLECYSTECTOMY 2001 PROCEDURE: HISTORICAL CHOLECYSTECTOMY CARPAL TUNNEL RELEASE 2016 PROCEDURE: ND NEUROPLASTY &/TRANSPOS MEDIAN NRV CARPAL TUNNE COLONOSCOPY 08/24/2021 PROCEDURE: HISTORICAL COLONOSCOPY; COMMENT: negative/fair prep ESOPHAGOGASTRODUODENOSCOPY 08/24/2021 PROCEDURE: ND EGD TRANSORAL BIOPSY SINGLE/MULTIPLE; COMMENT: hiatal hernia. biopsy with H.pylori gastritis TOTAL KNEE ARTHROPLASTY Right PROCEDURE: HISTORICAL TOTAL KNEE REPLACE; COMMENT: 2015 Medical History Medical History Date Comments Pseudotumor cerebri DX:Pseudotum or cerebri; COMMENT: follows with Dr Bergman [facility] Neurosurgical S/P [employer] shunt DX:S/P [employer] H[employer] shunt Asthma DX:Asthma; COMME NT: Dr Erazo at [facility] Migraine DX:Migraine; COM MENT: Dr peck in [facility] Trigger finger 06/25/2017 DX:Trigger finge r H/O total knee replacement, right 02/29/2016 DX:H/O total knee replacement, right Morbid obesity with BMI of 40.0-44.9, adult ([facility]/HCC) 03/29/2018 DX:Morbid obesity with BMI of 40.0-44.9, adult ([facility]) Tobacco abuse disorder DX:Tobacc o [...] on file Sexual Orientation Not on file Obstetrics History Last Filed [...] Mass Index 38.97 03/27/2024 5:41 AM EST Plan of Treatment Upcoming Encounters Date Type Department Care Team (Late st Contact Info) Description 05/02/2024 1:30 PM EDT Office Visit Internal Medicine [facility] [address] [phone] Chely Barnes PA [address] [address] 06/10/2024 10:30 AM EDT Office Visit Internal Medicine [facility] 175 [facility] [address] [place] [address] Chely Barnes PA [address] [address] Health Maintenance Due Date Last Done Comments DTaP,Tdap,and Td Vaccines (1 - Tdap) 1992 Hepatitis B Vaccines (1 of 3 - 19+ 3-dose series) 1992 Pneumococcal Vaccine: 50+ Years (1 of 2 - PCV) 1992 Pneumococcal Vaccine: Pediatrics (0 to 5 Years) and At-Risk Patients (6 to 64 Years) (1 of 2 - PCV) 1992 Cervical Cancer Screening: P ap Smear 1994 Depression Screening 01/28/2022 HIV Screening 01/28/2022 Hepatitis C Screening 01/28/2022 Medicare Annual Wellness Visit 01/28/2022 Social Influencers of Health Screening 01/28/2022 Zoster Vaccines (1 of 2) 07/02/2023 COVID-19 Vaccine (2023-2 5 season) 2023 02/22/2021, 06/15/2020, 05/25/2020 Influenza Vaccine (#1) 2023 Hypertension/CHF/CAD Annual BMP Blood Test 03/27/2025 03/27/2024, 05/28/2023, 05/28/2023 Breast Cancer Screening 07/08/2025 07/09/2023 Cholesterol [...] patient's age to complete this topic Meningococcal B Vacine Aged Out No lo nger eligible based on patient's age to complete this topic RSV Immunization Patients Under 20 months Aged Out No longer eligible b ased on patient's age to complete this topic Varicella Vaccines Aged Out No longer eligible based on patient's age to complete this topic Procedures Procedure Name Priority Date/Time Associated Diagnosis Comments CT ABDOMEN PELVIS WO CONTRAST STAT 03/27/2024 8:33 AM EST HOBBS URINE CULTURE TUBE STAT 03/27/2024 7:37 AM EST URINALYSIS WITH REFLEX MICROSCOPIC AND CULTURE STAT 03/27/2024 7:37 AM EST URINALYSIS WITH REFLEX MICROSCOPIC AND CULTURE STAT 03/27/2024 7:37 AM EST US PELVIS NON OB COMPLETE W TRANSVAGINAL STAT 03/27/2024 6:45 AM EST LIPASE STAT 03/27/2024 5:52 AM EST CBC WITH AUTO DIFFERENTIAL STAT 03/27/2024 5:52 AM EST COMPREHENSIVE METABOLIC PANEL STAT 03/27/2024 5:52 AM EST CBC AND DIFFERENTIAL STAT 03/27/2024 5:52 AM EST MARK SCREENING DIGITAL Routine 07/09/2023 10:08 AM EDT Encounter for screening mammogram for malignant neoplasm of breast LIPID PANEL Routine 09/11/2022 HM COLONOSCOPY Routine 08/24/2021 from Last 3 Months or Most Recently Relevant to Health Maintenance Results * CT Abdomen Pelvis wo Contrast [...] Signed Date: 03/27/2024 08:46 ET Workstation ID: [id number] Transcribed By: Self Edit Transcribed Date: 03/27/2024 [...] Dictated Date: 03/27/2024 08:37 ET Assigned Physician: Grday Ziegler Reviewed and Electronically Signed By: Grady Ziegler Signed Date: 03/27/2024 08:46 ET Workstation ID: [id number] Transcribed By: Self Edit Transcribed Date: 03/27/2024 08:37 ET Becca SONG IMG CT PROCEDURES Final Resul t * (ABNORMAL) Urinalysis with reflex microscopic and culture (03/27/2024 7:37 AM EST) Specific [place] Urine 1.022 1.003 - 1.030 LAB URINALYSIS - AUTOMATED METHOD 03/27/2024 8:22 AM EST [facility] pH, Urine 8.0 5.0 - 8.0 pH LAB URINALYSIS - AUTOMATED METHOD 03/27/2024 8:[address] [facility] Leukocytes, Urine Negative Negative LAB URINALYSIS - AUTOMATED METHOD 03/27/2024 8:[address] [facility] Nitrite, Urine Negative Negative LAB URINALYSIS - AUTOMATED METHOD 03/27/2024 8:[address] [facility] Protein, Urine 30(A) <=Trace mg/dL LAB URINALYSIS - AUTOMATED METHOD 03/27/2024 8:[address] [facility] Glucose, Urine Negative Negative mg/dL LAB URINALYSIS - AUTOMATED METHOD 03/27/2024 8:[address] [facility] Ketones, Urine Trace(A) Negative mg/dL LAB URINALYSIS - AUTOMATED METHOD 03/27/2024 8:[address] [facility] Urobilinogen, Urine 1.0 0.2 - 1.0 mg/dL LAB URINALYSIS - AUTOMATED METHOD 03/27/2024 8:[address] [facility] Bilirubin, Urine Negative Negative LAB URINALYSIS - AUTOMATED METHOD 03/27/2024 8:[address] [facility] Blood, Urine Negative Negative LAB URINALYSIS - AUTOMATED METHOD 03/27/2024 8:[address] [facility] RBC, Urine 0.1 0 - 4 /HPF LAB URINALYSIS - AUTOMATED METHOD 03/27/2024 8:[address] [facility] WBC, Urine 1.8 0 - 4 /HPF LAB URINALYSIS - AUTOMATED METHOD 03/27/2024 8:[address] [facility] Squamous Epithelial, Urine 48 0 - 60 /LPF LAB URINALYSIS - AUTOMATED METHOD 03/27/2024 8:[address] [facility] Bacteria, Urine Negative Negative /HPF LAB URINALYSIS - AUTOMATED METHOD 03/27/2024 8:[address] [facility] Hyaline Casts, Urine 0.4 0 - 3 /LPF LAB URINALYSIS - AUTOMATED METHOD 03/27/2024 8:22 AM EST [facility] Urine Urine specimen obtained by clean catch procedure / Unknown Non-blood Collection / Unknown 03/27/2024 7:37 AM EST 03/27/2024 7:44 AM EST Yasmeen Rubio MD LAB URINE ORDERABLES Fin al Result Performing Organization Address [facility] Co de Phone Number [facility] [address] [place] [address], [place] [phone] * [place] urine culture tube (03/27/2024 7:37 AM EST) Extra Tube Hold for add-ons. 03/27/2024 9:01 AM EST [facility] Comment:Auto resulted. Urine Urine specimen obtained by clean catch procedure / Unknown Non-blood Collection / Unknown 03/27/2024 7:37 AM EST 03/27/2024 7:44 AM EST Yasmeen Rubio MD LAB URINE ORDERABLES Fin al Result Performing Organization Address [facility] de Phone Number [facility] [address] [place] [address], [place] [phone] * US Pelvis Non OB Complete w [...] Signed Date: 03/27/2024 07:56 ET Workstation ID: [id number] Transcribed By: Self Edit Transcribed Date: 03/27/2024 [...] Signed Date: 03/27/2024 07:56 ET Workstation ID: [id number] Transcribed By: Self Edit Transcribed Date: 03/27/2024 07:53 ET us Yasmeen Rubio MD [facility] PROCEDURES Final Result * (ABNORMAL) CBC auto differential (03/27/2024 5:52 AM EST) WBC 4.7(L) 4.8 - 10.8 K/mcL LAB HEMETOLOGY METHOD 03/27/2024 6:[address] [facility] RBC 4.60 3.80 - 4.80 M/mcL LAB HEMETOLOGY METHOD 03/27/2024 6:[address] [facility] Hemoglobin 13.9 11.5 - 16.0 g/dL LAB HEMETOLOGY METHOD 03/27/2024 6:[address] [facility] Hematocrit 39.2 35.0 - 47.0 % LAB HEMETOLOGY METHOD 03/27/2024 6:[address] [facility] MCV 85.4 79.0 - 98.0 FL LAB HEMETOLOGY METHOD 03/27/2024 6:[address] [facility] MCH 30.3 27.0 - 32.0 pcg LAB HEMETOLOGY METHOD 03/27/2024 6:[address] [facility] MCHC 35.5 32.0 - 37.0 g/dL LAB HEMETOLOGY METHOD 03/27/2024 6:[address] [facility] RDW 12.7 11.0 - 15.0 % LAB HEMETOLOGY METHOD 03/27/2024 6:[address] [facility] Platelets 187 130 - 400 K/mcL LAB HEMETOLOGY METHOD 03/27/2024 6:[address] [facility] MPV 10.0 7.0 - 11.0 FL LAB HEMETOLOGY METHOD 03/27/2024 6:[address] [facility] NRBC 0.0 <1.0 % LAB HEMETOLOGY METHOD 03/27/2024 6:[address] [facility] NRBC Absolute 0.00 <0.10 K/mcL LAB HEMETOLOGY METHOD 03/27/2024 6:[address] [facility] Neutrophils Relative 82.5 % LAB HEMETOLOGY METHOD 03/27/2024 6:[address] [facility] Lymphocytes Relative 8.9 % LAB HEMETOLOGY METHOD 03/27/2024 6:[address] [facility] Monocytes Relative 8.2 % LAB HEMETOLOGY METHOD 03/27/2024 6:[address] [facility] Eosinophils Relative 0.0 % LAB HEMETOLOGY METHOD 03/27/2024 6:[address] [facility] Basophils Relative 0.0 % LAB HEMETOLOGY METHOD 03/27/2024 6:[address] [facility] Immature Granulocytes Relative 0.4 % LAB HEMETOLOGY METHOD 03/27/2024 6:[address] [facility] Neutrophils Absolute 3.91 1.50 - 7.00 K/mcL LAB HEMETOLOGY METHOD 03/27/2024 6:[address] [facility] Lymphocytes Absolute 0.42(L) 1.00 - 5.00 K/mcL LAB HEMETOLOGY METHOD 03/27/2024 6:[address] [facility] Monocytes Absolute 0.39 0.20 - 1.00 K/mcL LAB HEMETOLOGY METHOD 03/27/2024 6:[address] [facility] Eosinophils Absolute 0.00 0.00 - 0.50 K/mcL LAB HEMETOLOGY METHOD 03/27/2024 6:[address] [facility] Basophils Absolute 0.00 0.00 - 0.20 K/mcL LAB HEMETOLOGY METHOD 03/27/2024 6:[address] [facility] Immature Granulocytes Absolute 0.02 0.00 - 0.03 K/mcL LAB HEMETOLOGY METHOD 03/27/2024 6:00 AM EST [facility] Blood Venous blood specimen / Unknown Venipuncture / Unknown 03/27/2024 5:52 AM EST 03/27/2024 5:56 AM EST Yasmeen Rubio MD LAB BLOOD ORDERABLES Fin al Result Performing Organization Address [facility]/ZIP Co de Phone Number [facility] [address] [place] [address], [place] [phone] * Lipase (03/27/2024 5:52 AM EST) [facility] Lipase 16 13 - 75 unit/L LAB CHEMISTRY METHOD 03/27/2024 6:[address] [facility] Blood Venous blood specimen / Unknown Venipuncture / Unknown 03/27/2024 5:52 AM EST 03/27/2024 5:56 AM EST Yasmeen Rubio MD LAB BLOOD ORDERABLES Fin al Result Performing Organization Address [facility] de Phone Number [facility] [address] [place] [address], [place] [phone] * (ABNORMAL) Comprehensive metabolic panel (03/27/2024 5:52 AM EST) Pathologist [facility] Sodium 134 133 - 145 mmol/L LAB CHEMISTRY METHOD 03/27/2024 6:[address] [facility] Potassium 3.4(L) 3.5 - 5.5 mmol/L LAB CHEMISTRY METHOD 03/27/2024 6:[address] [facility] Chloride 103 96 - 110 mmol/L LAB CHEMISTRY METHOD 03/27/2024 6:21 AM EST [facility] CO2 23 21 - 32 mmol/L LAB CHEMISTRY METHOD 03/27/2024 6:[address] [facility] Anion Gap 8 3 - 11 LAB CHEMISTRY METHOD 03/27/2024 6:[address] [facility] Glucose 130(H) 70 - 100 mg/dL LAB CHEMISTRY METHOD 03/27/2024 6:[address] [facility] BUN 10 5 - 25 mg/dL LAB CHEMISTRY METHOD 03/27/2024 6:[address] [facility] Creatinine 0.76 0.50 - 1.10 mg/dL LAB CHEMISTRY METHOD 03/27/2024 6:[address] [facility] eGFR 96 >=60 mL/min/1. 73m2 LAB CHEMISTRY METHOD 03/27/2024 6:[address] [facility] Comment:Calculation based on the??Chronic Kidney Disease Epidemiology Collaboration (CKD-EPI) equation refit??without adjustment for race. BUN/Creatinine Ratio 13.2 LAB CHEMISTRY METHOD 03/27/2024 6:[address] [facility] Calcium 8.8 8.5 - 10.5 mg/dL LAB CHEMISTRY METHOD 03/27/2024 6:[address] [facility] AST (SGOT) 55(H) 10 - 42 unit/L LAB CHEMISTRY METHOD 03/27/2024 6:[address] [facility] ALT (SGPT) 57 10 - 60 unit/L LAB CHEMISTRY METHOD 03/27/2024 6:[address] [facility] Alkaline Phosphatase 130(H) 42 - 121 unit/L LAB CHEMISTRY METHOD 03/27/2024 6:[address] [facility] Total Protein 7.4 6.0 - 8.0 g/dL LAB CHEMISTRY METHOD 03/27/2024 6:[address] [facility] Albumin 3.6 3.2 - 5.0 g/dL LAB CHEMISTRY METHOD 03/27/2024 6:[address] [facility] Total Bilirubin 0.5 0.0 - 1.4 mg/dL LAB CHEMISTRY METHOD 03/27/2024 6:21 AM EST [facility] ([facility] Blood Venous blood specimen / Unknown Venipuncture / Unknown 03/27/2024 5:52 AM EST 03/27/2024 5:56 AM EST us Yasmeen Rubio MD LAB BLOOD ORDERABLES Fin al Result [facility] ([facility]) [facility] [address] [place] [address], * MARK SCREENING DIGITAL (07/09/2023 10:08 AM EDT) Anatomical Region Laterality Modality Mammography 07/05/2023 9:05 AM EDT Narrative 07/09/2023 10:08 AM EDT [facility] Diagnostic Imaging Department [address] [place] [address] Patient: ??ZAIDA FRENCH ?/Age/Sex: 1975 - 48 - F Unit#: ??[id number] ? Location/Status: ??SPDIMAM/REG CLI ? Mnemonic/Ordering Site: ??DIGSC/SPMAM Ordering Physician: ??MICHEL CERVANTES MD Mark Screening Digital - 07/07/23 - 1120 Report Status:Signed EXAM: Mark Screening Digital EXAM DATE AND TIME: 07/07/2023 11:21 AM HISTORY: ??Screening. COMPARISON: ??09/02/08 TECHNIQUE: Bilateral digital breast tomosynthesis was performed in the CC and MLO projections. Computer aided detection with Gainsight 3D 3.1 was employed. TISSUE DENSITY: a. [...] mammogram BILATERAL in 1 year. Dictating Physician: ??MARTY RUTH MD Electronically Signed by: ??MARTY RUTH MD Dic Date/Time: ??07/09/23 1007 Sign date/Time: ??07/09/23 1008 Procedure Note Marty Ruth MD - 10/08/2023 [facility] Diagnostic Imaging Department [address] [place] [id number] Patient: ZAIDA FRENCH [place] /Age/Sex: 1975 - 48 - F Unit#: [id number] Location/Status: [facility] CLI Mnemonic/Ordering Site: [facility] Ordering Physician: MICHEL CERVANTES MD [facility] Screening Digital - 07/07/23 - 1121 Report Status:Signed EXAM: [facility] Screening Digital EXAM DATE AND TIME: 07/07/2023 11:21 AM HISTORY: Screening. COMPARISON: 09/02/08 TECHNIQUE: Bilateral digital breast tomosynthesis was performed in the CCand MLO projections. Computer aided detection with Gainsight 3D 3.1was employed. TISSUE DENSITY: a. The [...] mammogram BILATERAL in 1 year. Dictating Physician: MARTY RUTH MD Electronically Signed by: MARTY RUTH MD Dic Date/Time: 07/09/23 1007 Sign date/Time: 07/09/23 1008 Michel Del Angel MD IMG BI PROCEDURES Final Result * (ABNORMAL) Lipid panel (09/11/2022) LDL/HDL Ratio 3 0 - 4 Triglycerides 97 0 - 150 mg/dL Cholesterol 179 0 - 200 mg/dL HDL 52 >=40 mg/dL LDL Cholesterol 108(A) 0 - 100 mg/dL Blood Venous blood specimen / Unknown Historical Provider LAB BLOOD ORDERABLES Desiree l Result * Colonoscopy (08/24/2021) Pathologist [facility] Colonoscopy normal, abstracted Anatomical Region Laterality Modality Other Historical Provider HEALTH MAINTENANCE Final Result from Last 3 Months or Most Recently Relevant to Health Maintenance Insurance [employer] MEDICARE Member Subscriber Plan / Payer (Ef fective 2018-Present) Name:Zaida French Relation to Subscriber:Self Name:Zaida French Payer ID:[id number] Group ID:[id number] Type:Not on file Address: [facility] [address] [address] Care Teams Power Builder Developer Relationship Specialty Start Date End Date Chely Barnes PA [address] [address] PCP - General Primary Care 12/27/23
--- OUTSIDE RECORDS SUMMARY | 2024-04-18 16:22 | XMS_ITS | Encounter Summary ---
Author Organization [facility] Address [address] [place] [address] Care Team Providers Care Knife Changer Name Role Phone Chely Barnes Primary Care Provider + Reason for Visit * Reason Onset Date Comments Prior Authorization 03/25/2024 Encounter Details Date Type Department Care Team (Late st Contact Info) Description 03/25/2024 Telephone Internal Medicine - [place] [address] [place] [phone] Chely Barnes PA [address] [place] [address] Prior Authorization Social History Tobacco Use Types [...] Progress Notes * Yuliet Bhardwaj [place] - 04/04/2024 3:05 PM EST Fax from [facility], requesting more information and documentation. Form completed and faxed back today with office notes and weight charts * Yuliet Bhardwaj MA - 04/01/2024 12:57 PM EST Prior authorization for the wemadelinevy was completed today on cmm Dx obesity * Fabiola Bass - 03/25/2024 10:19 AM EST Prior Authorization for Medication-do not complete and send this encounter unless you have the fax from the pharmacy. Is this a Cover My Meds request: Yes - Arboleda Code: [id number] Name of Medication semaglutide (Wegovy) Dose of Medication 1 mg/0.5 mL What is the RX # from the faxed refill? - How does patient take this med? Inject 1 mg under the skin every 7 (seven) days What Pharmacy did the fax come from: [facility] fax #: [phone] [employer] Party Information from fax: What Prescription Plan does the patient have? - BIN/PCN if applicable: - Cardholder ID: - Person Code: - Relationship Code: - Help desk phone: - documented in this encounter Plan of Treatment Upcoming Encounters Date Type Department Care Team (Late st Contact Info) Description 05/02/2024 1:30 PM EDT Office Visit Internal Medicine [facility] [address] [phone] Chely Barnes PA [address] [address] 06/10/2024 10:30 AM EDT Office Visit Internal Medicine [facility] [address] [phone] Chely Barnes PA [address] [address] documented as of this encounter Visit Diagnoses Not on filedocumented in this encounter Care Teams Knife Changer Relationship Specialty Start Date End Date Chely Barnes PA [address] [address] PCP - General Primary Care 12/27/23 documented as of this encounter
--- OUTSIDE RECORDS SUMMARY | 2024-04-18 16:22 | XMS_ITS | Encounter Summary ---
Author Organization [facility] Address [address] [place] [address] [address] Team [address] Care Lane Attendant Name Role Phone Chely Barnes Primary Care Provider + Reason for Visit * Reason Onset Date Comments Hospital Follow-up 04/10/2024 Encounter Details Date Type Department Care Team (Late st Contact Info) Description 04/10/2024 Telephone Internal Medicine - [place] [address] [place] [phone] Chely Barnes PA [address] [place] [address] Hospital Follow-up Social History Tobacco Use Types Packs/Day Years [...] on file documented as of this encounter Functional Status * Are you [...] Assessment Author No 03/27/2024 7:28 AM Partha Bermeo, RN documented as of this encounter Mental Status * Because of a physical, mental, or emotional condition, do you have serious difficulty concentrating, remembering, or making decisions? (5 years old or older) Answer Entry Date Author No 03/27/2024 7:28 AM Partha Bermeo RN documented in this encounter Progress Notes * Amanda Santoyo RN - 04/10/2024 3:06 PM EST Call to pt # [phone], spoke w/ her. Appt booked * Liza Miryam - 04/10/2024 3:00 PM EST Patient called and requested a hospital follow up because she [place] [facility] and discharged on 04/01/24 due to COVID and seizures. Please advise Cb# [phone] documented in this encounter Plan of Treatment Upcoming Encounters Date Type Department Care Team (Late st Contact Info) Description 05/02/2024 1:30 PM EDT Office Visit Internal Medicine [facility] [address] [phone] Chely Barnes PA [address] [address] 06/10/2024 10:30 AM EDT Office Visit Internal Medicine [facility] [address] [phone] Chely Barnes PA [address] [address] documented as of this encounter Visit Diagnoses Not on filedocumented in this encounter Care Teams Lane Attendant Relationship Specialty Start Date End Date Chely Barnes PA [address] [place] [address] PCP - General Primary Care 12/27/23 documented as of this encounter
== END ==
LOC: HO.CARD 14:09
PROVIDERS: PCP Physician Assistant; Visit Provider Hospitalist
DX: I27.20 Pulmonary hypertension, unspecified (principal); R07.9 Chest pain, unspecified; J44.9 Chronic obstructive pulmonary disease, unspecified
CPT/HCPCS: 93005; 93306

== ENCOUNTER → 2024-04-18 14:14 | Outpatient (BNV) | payer OTHER, SELFPAY | PROVIDERS: PCP Physician Assistant; Visit Provider Internal Medicine Cardiovascular Disease | DX: I51.7 Cardiomegaly (principal); I36.1 Nonrheumatic tricuspid (valve) insufficiency; I27.21 Secondary pulmonary arterial hypertension | CPT/HCPCS: 93306 ==

== ENCOUNTER 2024-11-04 09:33 | Outpatient (REF) | payer OTHER, SELFPAY ==
--- NOTE | ~2024-11-04 | CT_ITS ---
CLINICAL HISTORY: Z87.891 - Personal history of nicotine dependence CT lung cancer screening (LDCT) Comparison: 10/12/2023 Technique: Axial CT images of the chest using low-dose technique. Referring provider counseled the patient on shared decision-making for LDCT screening. Additional counseling was provided on smoking cessation. Effective radiation dose total: DLP 40.4 mGycm, CTDIvol 1.3 mGy. Findings: New 1 mm subpleural nodule in the left lower lobe series 6, image 88. A few additional stable bilateral lung nodules (the largest is a left juxtapleural nodule on series 6, image 72 measuring up 2 mm). Coronary artery calcifications: None Cholecystectomy. Borderline splenomegaly. Other: None Impression: LungRADS 2 - Benign Appearance: Continue annual screening with low dose Chest CT in 12 months. ##L2# This document has been electronically signed by: Mariely Carpenter MD on 11/05/2024 11:19:54
--- OUTSIDE RECORDS SUMMARY | 2024-11-04 12:07 | XMS_ITS | Clinical Summary ---
Author Organization [facility] Address [address] [place] [address] Phone Care Team Providers Care Glass Beveller Name Role Phone Chely Barnes Primary Care Provider + Allergies Active Allergy Reactions Criticality Noted Date Comments Amoxicillin Hives 12/27/2023 Morphine Hives 12/27/2023 Medications furosemide (LASIX) 20 mg tablet Take 1 tablet (20 mg total) by mouth 1 (one) time each day. Active cetirizine (ZyrTEC) 10 mg tablet Take 1 tablet (10 mg total) by mouth 1 (one) time each day if needed for allergies. 3 Active esomeprazole (NexIUM) [address] capsule Take 1 capsule (40 mg total) by mouth 1 (one) time each day. 4 Active fluticasone propionate (FLONASE) 50 mcg/actuation nasal [...] day if needed for flatulence. 2 Active metoprolol succinate (TOPROL-XL) 50 mg 24 [...] 1 (one) time each day. 4 Active amitriptyline (ELAVIL) 25 mg tabletIndications: Insomnia, unspecified type TAKE 1 TABLET(25 MG) BY MOUTH AT BEDTIME 90 tablet 1 5 Active cholecalciferol (VITAMIN D-3) 50 mcg (2,000 unit) capsule TAKE 1 CAPSULE BY MOUTH DAILY 90 capsule 1 5 Active escitalopram (LEXAPRO) 20 mg tablet TAKE 1 TABLET BY MOUTH DAILY 90 tablet 1 5 Active polycarbophil (FIBERCON) 625 mg tablet Take 1 tablet (625 mg total) by mouth 1 (one) time each day. for 360 days. 90 tablet 1 5 Active cyanocobalamin (VITAMIN B-12) 1,000 mcg tabletIndications: Vitamin B12 deficiency Take 1 tablet (1,000 mcg total) by mouth 1 (one) time each day. 90 each 3 5 026 Active tirzepatide, weight loss, (Zepbound) 5 mg/0.5 mL injectionIndicatio ns:Obesity (BMI 30-39.9) Inject 0.5 mL (5 mg total) under the skin every 7 (seven) days. 6 mL 1 5 Active linaCLOtide (Linzess) 290 mcg capsule Take 1 capsule (290 mcg total) by mouth 1 (one) time each day. 90 each 5 025 Active polyethylene glycol (MIRALAX) 17 gram packet MIX AND DRINK 1 PACKET BY MOUTH DAILY 30 each 1 5 Active Active Problems Problem Noted Date Diagnosed Date Asthma 02/04/2024 Migraine 02/04/2024 Pseudotumor cerebri 02/04/2024 Morbid obesity with BMI of 4 0.0-44.9, adult ([facility] V24, [facility] V28) 02/04/2024 Vitamin D deficiency 09/13/2022 Hypoxemia 04/23/2020 Allergic rhinitis due to pollen 05/21/2019 Nicotine dependence, uncomplicated 05/21/2019 PND (post-nasal drip) 05/21/2019 Anxiety and depression 10/02/2018 Trigger finger 06/25/2017 Tobacco abuse disorder Overview (02/07/2024): DX:Tobacco abuse disorder HTN (hypertension) Resolved Problems Problem Noted Date Diagnosed Date Resolved Date Depression 02/04/2024 08/11/2024 Encounters Date Type Department Care Team Description 10/30/2024 Telephone Internal Medicine - [place] [address] [phone] Chely Barnes PA 08/26/2024 Telephone Gastroenterology [facility] [address] [phone] Cruz Carrington DO 08/12/2024 Telephone Internal Medicine [facility] [address] [phone] Kelley Davila ND 08/11/2024 9:30 AM EDT Office Visit Internal Medicine [facility] [address] [phone] Chely Barnes PA Obesity (BMI 30-39.9) (Primary Dx); Primary hypertension; COPD with asthma (CMS/HCC V24, CMS/HCC V28); Anxiety and depression; Muscle twitching; Migraine without status migrainosus, not intractable, unspecified migraine type from Last 3 Months Immunizations Name Administration Dates Next Due Pfizer SARS-CoV-2 COVID-19, mRNA, LNP-S, preservative free 02/22/2021 Surgical History Surgery Date Site/Laterality Comments OTHER SURGICAL HISTORY PROCEDURE: ---- OTHER ----; COMMENT: v/p shunt - 4 years ago, done at [facility] by Dr anders CHOLECYSTECTOMY 2001 PROCEDURE: HISTORICAL CHOLECYSTECTOMY CARPAL TUNNEL RELEASE 2017 Bilateral PROCEDURE: ME NEUROPLASTY &/TRANSPOS MEDIAN NRV CARPAL TUNNE COLONOSCOPY 08/24/2021 PROCEDURE: HISTORICAL COLONOSCOPY; COMMENT: negative/fair prep ESOPHAGOGASTRODUODENOSCOPY 08/24/2021 PROCEDURE: ME EGD TRANSORAL BIOPSY SINGLE/MULTIPLE; COMMENT: hiatal hernia. biopsy with H.pylori gastritis TOTAL KNEE ARTHROPLASTY Right PROCEDURE: HISTORICAL TOTAL KNEE REPLACE; COMMENT: 2015 Medical History Medical History Date Comments Pseudotumor cerebri DX:Pseudotum or cerebri; COMMENT: follows with Dr Bergman [facility] S/P MAINTENANCE MGR shunt DX:S/P MAINTENANCE MGR shunt Asthma DX:Asthma; COMME NT: Dr Erazo at [facility] Migraine DX:Migraine; COM MENT: Dr peck in [facility] Trigger finger 06/25/2017 DX:Trigger finge r H/O total knee replacement, right 02/29/2016 DX:H/O total knee replacement, right Morbid obesity with BMI of 40.0-44.9, adult (CMS/HCC V24, CMS/HCC V28) 03/29/2018 DX:Morbid obesity with BMI o f 40.0-44.9, adult ([facility]) Tobacco abuse disorder DX:Tobacc o abuse disorder [...] September 2023 Alcohol Use Standard Drinks/Week Comments Not Currently 0 (1 standard drink = 0.6 oz pur e alcohol) Comments No Sex and Gender Information Value Date Recorded Sex Assigned at Not on file Legal Sex Female 2:00 AM EST Gender Identity Not on file Sexual Orientation Not on file Obstetrics History Last Filed Vital Signs Vital Sign Reading Time Taken Comments Blood Pressure 110/74 08/11/2024 9:51 AM EDT Pulse 70 08/11/2024 9:34 AM EDT Temperature 36.6 C (97.8 F) 08/11/2024 9:34 AM EDT Respiratory Rate 24 03/27/2024 9:10 AM EST Oxygen Saturation 96% 08/11/2024 9:34 AM EDT Inhaled Oxygen Concentration - - Weight 93.9 kg (207 lb) 08/11/2024 9:34 AM EDT Height 160 cm (5' 3 ) 08/11/2024 9:34 AM EDT Body Mass Index 36.67 08/11/2024 9:34 AM EDT Plan of Treatment Upcoming Encounters Date Type Department Care Team (Late st Contact Info) Description 11/12/2024 9:45 AM EDT Office Visit Internal Medicine - [place] [address] [place] [phone] Chely Barnes PA [address] [place] [address] Health Maintenance Due Date Last Done Comments DTaP,Tdap,and Td Vaccines (1 - Tdap) 1992 Hepatitis A Vaccines (1 of 2 - Risk 2-dose series) 1992 Hepatitis B Vaccines (1 of 3 - 19+ 3-dose series) 1992 Pneumococcal Vaccine: 50+ Years (1 of 2 - PCV) 1992 Cervical Cancer Screening: Pap Smear 1994 HIV Screening 01/28/2022 Hepatitis C Screening 01/28/2022 Medicare Annual Wellness Visit 01/28/2022 Social Influencers of Health Screening 01/28/2022 Zoster Vaccines (1 of 2) 07/02/2023 Depression Screening 02/20/2024 COVID-19 Vaccine ( season) 2024 02/22/2021, 06/15/2020, 05/25/2020 Influenza Vaccine (#1) 2024 Breast Cancer Screening 07/08/2025 07/09/2023 Hypertension/CHF/CAD Annual BMP Blood Test 08/11/2025 08/11/2024, 03/27/2024, 05/28/2023, Additional history exists Cholesterol Screening (Lipid Panel) 09/12/2027 09/11/2022 Colorectal [...] age to complete this topic Meningococcal B Vaccine Aged Out No l onger eligible based on patient's age to complete this topic RSV Immunization Patients Under 20 months Aged Out No longer eligible based on patient's age to complete this topic Varicella Vaccines Aged Out No longer eligible based on patient's age to complete this topic Procedures Procedure Name Priority Date/Time Associated Diagnosis Comments CBC WITH AUTO DIFFERENTIAL Routine 08/11/2024 10:03 AM EDT Muscle twitching FOLATE Routine 08/11/2024 10:03 AM EDT Muscle twitching IRON Routine 08/11/2024 10:03 AM EDT Muscle twitching FERRITIN Routine 08/11/2024 10:03 AM EDT Muscle twitching THYROID STIMULATING HORMONE Routine 08/11/2024 10:03 AM EDT Muscle twitching VITAMIN D 25 HYDROXY Routine 08/11/2024 10:03 AM EDT Muscle twitching VITAMIN B12 Routine 08/11/2024 10:03 AM EDT Muscle twitching MAGNESIUM Routine 08/11/2024 10:03 AM EDT Muscle twitching HEMOGLOBIN A1C Routine 08/11/2024 10:03 AM EDT Muscle twitching COMPREHENSIVE METABOLIC PANEL Routine 08/11/2024 10:03 AM EDT Muscle twitching CBC AND DIFFERENTIAL Routine 08/11/2024 10:03 AM EDT Muscle twitching MARGOTH SCREENING DIGITAL Routine 07/09/2023 10:08 AM EDT Encounter for screening mammogram for malignant neoplasm of breast LIPID PANEL Routine 09/11/2022 HM COLONOSCOPY Routine 08/24/2021 from Last 3 Months or Most Recently Relevant to Health Maintenance Results * CBC auto differential (08/11/2024 10:03 AM EDT) [facility] WBC 6.1 4.8 - 10.8 K/mcL LAB HEMETOLOGY METHOD 08/11/2024 2:15 PM EDT [facility] RBC 4.40 3.80 - 4.80 M/mcL LAB HEMETOLOGY METHOD 08/11/2024 2:15 PM EDT [facility] Hemoglobin 12.9 11.5 - 16.0 g/dL LAB HEMETOLOGY METHOD [facility] Hematocrit 39.3 35.0 - 47.0 % LAB HEMETOLOGY METHOD 08/11/2024 2:15 PM EDT [facility] MCV 90.3 79.0 - 98.0 FL LAB HEMETOLOGY METHOD 08/11/2024 2:15 PM EDT [facility] MCH 29.7 27.0 - 32.0 pcg LAB HEMETOLOGY METHOD 08/11[facility]2024 [facility] MCHC 32.8 32.0 - 37.0 g/dL LAB HEMETOLOGY METHOD 08/11/2024 2:15 PM EDT [facility] RDW 12.7 11.0 - 15.0 % LAB HEMETOLOGY METHOD 08/11/2024 [facility] Platelets 245 130 - 400 K/mcL LAB HEMETOLOGY METHOD 08/11/2024 2:15 PM EDT [facility] MPV 10.8 7.0 - 11.0 FL LAB HEMETOLOGY METHOD 08/11/2024 2:15 PM EDT [facility] NRBC 0.0 <1.0 % LAB HEMETOLOGY METHOD 08/11/2024 2:15 PM EDT [facility] NRBC Absolute 0.00 <0.10 K/mcL LAB HEMETOLOGY METHOD 08/11/2024 2:15 PM EDT [facility] Neutrophils Relative 62.9 % LAB HEMETOLOGY METHOD 08/11/2024 2:15 PM EDT [facility] Lymphocytes Relative 26.9 % LAB HEMETOLOGY METHOD 08/11/2024 2:15 PM EDT [facility] Monocytes Relative 7.9 % LAB HEMETOLOGY METHOD 08/11/2024 2:15 PM EDT [facility] Eosinophils Relative 1.8 % LAB HEMETOLOGY METHOD 08/11/2024 2:15 PM T [facility] Basophils Relative 0.3 % LAB HEMETOLOGY METHOD 08/11/2024 2:15 PM EDT [facility] Immature Granulocytes Relative 0.2 % LAB HEMETOLOGY METHOD 08/11/2024 2:15 PM [facility] Neutrophils Absolute 3.84 1.50 - 7.00 K/mcL LAB HEMETOLOGY METHOD 08/11/2024 2:15 PM [facility] Lymphocytes Absolute 1.64 1.00 - 5.00 K/mcL LAB HEMETOLOGY METHOD 08/11/2024 2:15 PM EDT [facility] Monocytes Absolute 0.48 0.20 - 1.00 K/mcL LAB HEMETOLOGY METHOD 08/11/2024 2:15 PM EDT [facility] Eosinophils Absolute 0.11 0.00 - 0.50 K/mcL LAB HEMETOLOGY METHOD 08/11/2024 2:15 PM EDT [facility] Basophils Absolute 0.02 0.00 - 0.20 K/mcL LAB HEMETOLOGY METHOD 08/11/2024 2:15 PM EDT [facility] Immature Granulocytes Absolute 0.01 0.00 - 0.03 K/mcL LAB HEMETOLOGY METHOD 08/11/2024 2:15 PM EDT [facility] Blood Venous blood specimen / Unknown Venipuncture / Unknown 08/11/2024 10:03 AM EDT 08/11/2024 10:03 AM EDT Chely SONG LAB BLOOD ORDERABLES Fin al Result Performing Organization Address [facility]/ZIP Co de Phone Number [facility] [address] [place] [address], * (ABNORMAL) Vitamin D 25 hydroxy (08/11/2024 10:03 AM EDT) Vit D, 25-Hydroxy 28.6(L) 30.0 - 80.0 ng/mL LAB CHEMISTRY METHOD 08/11/2024 4:55 PM EDT [facility] Blood Venous blood specimen / Unknown Venipuncture / Unknown 08/11/2024 10:03 AM EDT 08/11/2024 10:03 AM EDT us Chely SONG LAB BLOOD ORDERABLES Fin al Result Performing Organization Address City/[facility]/ZIP Co de Phone Number [facility] [address] [place] [address], [place] [phone] * Thyroid stimulating hormone (08/11/2024 10:03 AM EDT) TSH 1.56 0.40 - 4.00 mcIU/mL LAB CHEMISTRY METHOD 08/11/2024 4:56 PM EDT [facility] Blood Venous blood specimen / Unknown Venipuncture / Unknown 08/11/2024 10:03 AM EDT 08/11/2024 10:03 AM EDT Chely SONG LAB BLOOD ORDERABLES Fin al Result Performing Organization Address City/[facility]/ZIP Co de Phone Number [facility] [address] [place] [address], [place] [phone] * Magnesium (08/11/2024 10:03 AM EDT) [facility] Magnesium 2.1 1.9 - 2.6 mg/dL LAB CHEMISTRY METHOD 08/11/2024 4:27 PM EDT [facility] Blood Venous blood specimen / Unknown Venipuncture / Unknown 08/11/2024 10:03 AM EDT 08/11/2024 10:03 AM EDT Chely SONG LAB BLOOD ORDERABLES Fin al Result Performing Organization Address [facility]/ZIP Co de Phone Number [facility] [address] [place] [address], [place] [phone] * Iron (08/11/2024 10:03 AM EDT) [facility] Iron 62 40 - 150 mcg/dL LAB CHEMISTRY METHOD 08/11/2024 4:27 PM EDT [facility] Blood Venous blood specimen / Unknown Venipuncture / Unknown 08/11/2024 10:03 AM EDT 08/11/2024 10:03 AM EDT Chely SONG LAB BLOOD ORDERABLES Fin al Result Performing Organization Address City/[facility]/ZIP Co de Phone Number [facility] [address] [place] [address], [place] [phone] * Hemoglobin A1c (08/11/2024 10:03 AM EDT) [facility] Hemoglobin A1C 5.8 <6.5 % LAB CHEMISTRY METHOD 08/11/2024 9:17 PM EDT [facility] Mean Bld Glu Estim. 120 mg/dL LAB CHEMISTRY METHOD 08/11/2024 9:17 PM EDT [facility] Blood Venous blood specimen / Unknown Venipuncture / Unknown 08/11/2024 10:03 AM EDT 08/11/2024 10:03 AM EDT us Chely SONG LAB BLOOD ORDERABLES Fin al Result Performing Organization Address [facility] de Phone Number [facility] [address] [place] [address], [place] [phone] * (ABNORMAL) Folate (08/11/2024 10:03 AM EDT) Folate 19.6(H) 2.8 - 17.0 ng/ml LAB CHEMISTRY METHOD 08/11/2024 5:18 PM EDT [facility] Blood Venous blood specimen / Unknown Venipuncture / Unknown 08/11/2024 10:03 AM EDT 08/11/2024 10:03 AM EDT us Chely SONG LAB BLOOD ORDERABLES Fin al Result Performing Organization Address [facility] de Phone Number [facility] [address] [place] [address], [place] [phone] * Ferritin (08/11/2024 10:03 AM EDT) Ferritin 74 8 - 252 ng/mL LAB CHEMISTRY METHOD 08/11/2024 4:38 PM EDT [facility] Blood Venous blood specimen / Unknown Venipuncture / Unknown 08/11/2024 10:03 AM EDT 08/11/2024 10:03 AM EDT us Chely SONG LAB BLOOD ORDERABLES Fin al Result Performing Organization Address City/[facility] Co de Phone Number [facility] [address] [place] [address], * (ABNORMAL) Vitamin B12 (08/11/2024 10:03 AM EDT) [facility] Vitamin B-12 239(L) 250 - 900 pcg/mL LAB CHEMISTRY METHOD 08/11/2024 9:36 PM EDT [facility] Blood Venous blood specimen / Unknown Venipuncture / Unknown 08/11/2024 10:03 AM EDT 08/11/2024 10:03 AM EDT Chely SONG LAB BLOOD ORDERABLES Fin al Result [facility] [address] [place] [address], * Comprehensive metabolic panel (08/11/2024 10:03 AM EDT) [facility] Sodium 140 133 - 145 mmol/L LAB CHEMISTRY METHOD 08/11/2024 4:27 PM [facility] Potassium 3.8 3.5 - 5.5 mmol/L LAB CHEMISTRY METHOD 08/11/2024 4:27 PM [facility] Chloride 106 96 - 110 mmol/L LAB CHEMISTRY METHOD 08/11/2024 4:27 PM [facility] CO2 28 21 - 32 mmol/L LAB CHEMISTRY METHOD 08/11/2024 4:27 PM [facility] Anion Gap 6 3 - 11 LAB CHEMISTRY METHOD 08/11/2024 4:27 PM [facility] Glucose 95 70 - 100 mg/dL LAB CHEMISTRY METHOD 08/11/2024 4:27 PM [facility] BUN 13 5 - 25 mg/dL LAB CHEMISTRY METHOD 08/11/2024 4:27 PM [facility] Creatinine 0.75 0.50 - 1.10 mg/dL LAB CHEMISTRY METHOD 08/11/2024 4:27 PM [facility] eGFR 97 >=60 mL/min/1. 73m2 LAB CHEMISTRY METHOD 08/11/2024 4:27 PM [facility] Comment:Calculation based on the Chronic Kidney Disease Epidemiology Collaboration (CKD-EPI) equation refit without adjustment for race. BUN/Creatinine Ratio 17.3 LAB CHEMISTRY METHOD 08/11/2024 4:27 PM [facility] Calcium 8.6 8.5 - 10.5 mg/dL LAB CHEMISTRY METHOD 08/11/2024 4:27 PM [facility] AST (SGOT) 14 10 - 42 unit/L LAB CHEMISTRY METHOD 08/11/2024 4:27 PM [facility] ALT (SGPT) 19 10 - 60 unit/L LAB CHEMISTRY METHOD 08/11/2024 4:27 PM [facility] Alkaline Phosphatase 88 42 - 121 unit/L LAB CHEMISTRY METHOD 08/11/2024 4:27 PM [facility] Total Protein 7.3 6.0 - 8.0 g/dL LAB CHEMISTRY METHOD 08/11/2024 4:27 PM [facility] Albumin 3.5 3.2 - 5.0 g/dL LAB CHEMISTRY METHOD 08/11/2024 4:27 PM [facility] Total Bilirubin 0.6 0.0 - 1.4 mg/dL LAB CHEMISTRY METHOD 08/11/2024 4:27 PM [facility] Blood Venous blood specimen / Unknown Venipuncture / Unknown 08/11/2024 10:03 AM EDT 08/11/2024 10:03 AM EDT us Chely SONG LAB BLOOD ORDERABLES Fin al Result [facility] [address] [place] [address], * [facility] SCREENING DIGITAL (07/09/2023 10:08 AM EDT) Anatomical Region Laterality Modality Mammography 07/05/2023 9:05 AM EDT Narrative 07/09/2023 10:08 AM EDT [facility] Diagnostic Imaging Department [address] [place] [address] Patient: ZAIDA FRENCH Francisca /Age/Sex: 1975 - 48 - F Unit#: [id number] Location/Status: [facility] CLI Mnemonic/Ordering Site: [facility] Ordering Physician: MICHEL CERVANTES MD [facility] Screening Digital - 07/07/23 - 1121 Report Status:Signed EXAM: [facility] Screening Digital EXAM DATE AND TIME: 07/07/2023 11:21 AM HISTORY: Screening. COMPARISON: 09/02/08 TECHNIQUE: Bilateral digital breast tomosynthesis was performed in the CC and MLO projections. Computer aided detection with [employer] 3D 3.1 was employed. TISSUE DENSITY: a. The breasts are almost entirely fatty. FINDINGS: No suspicious masses, grouped microcalcifications, or areas of architectural distortion are seen. The skin and vascularity are unremarkable. IMPRESSION: Stable mammographic appearance of the breasts. No evidence of malignancy is seen. A negative mammogram in the presence of a clinically suspicious palpable abnormality does not preclude the possibility of malignancy or alter the indicat ions for biopsy. BI-RADS: Category 1: Negative RECOMMENDATION(S): 1: Routine screening mammogram BILATERAL in 1 year. Dictating Physician: MARTY RUTH MD Electronically Signed by: MARTY RUTH MD Dic Date/Time: 07/09/23 1007 Sign date/Time: 07/09/23 1008 Procedure Note Marty Ruth MD - 10/08/2023 [facility] Diagnostic Imaging Department [address] [place] [address] Patient: MANOLOZAIDA /Age/Sex: 1975 - 48 - F Unit#: [id number] Location/Status: [facility]/REG CLI Mnemonic/Ordering Site: [facility] Ordering Physician: MICHEL CERVANTES MD [facility] Screening Digital - 07/07/23 - 1121 Report Status:Signed EXAM: [facility] Screening Digital EXAM DATE AND TIME: 07/07/2023 11:21 AM HISTORY: Screening. COMPARISON: 09/02/08 TECHNIQUE: Bilateral digital breast tomosynthesis was performed in the CCand MLO projections. Computer aided detection with MoPubD Bevii 3D 3.1was employed. TISSUE DENSITY: a. The [...] ORDERABLES Desiree l Result * Colonoscopy (08/24/2021) Colonoscopy normal, abstracted Anatomical Region Laterality Modality Other Historical Provider HEALTH MAINTENANCE Final Result from Last 3 Months or Most Recently Relevant to Health Maintenance Insurance [facility] MEDIC[facility] Member Subscriber Plan / Payer (Ef fective 2018-Present) Name:ZAIDA FRENCH Relation to Subscriber:Self Name:Zaida French Payer ID:[id number] Group ID:[id number] Type:Not on file Address: [place] [address] [address] [id number] Care Teams Glass Beveller Relationship Specialty Start Date End Date Chely Barnes PA [address] [address] PCP - General Primary Care 12/27/23
--- OUTSIDE RECORDS SUMMARY | 2024-11-04 12:07 | XMS_ITS | Clinical Summary ---
Author Organization [facility] Address [address] [place] [address] Phone Care Team Providers Care Fisher Troll Line Name Role Phone Chely Barnes Primary Care Provider + Social History Tobacco Use Types Packs/Day Years Used Date Smoking Tobacco: Never Assessed Comments Unknown Sex and Gender Information Value Date Recorded Sex Assigned at Not on file Legal Sex Female 9:37 AM EDT Gender Identity Not on file Sexual Orientation Not on file Plan of Treatment Not on file Medical Devices Not on file Insurance [employer]HE[employer] [id number] [place] [address] [place] [address] [address] [place] [address] MEDICARE REPLACEMENT [facility] ONE CARE MEDICARE REPLACEMENT Care Teams Fisher Troll Line Relationship Specialty Start Date End Date Chely Barnes PA 175 [facility] [address] [place] [address] PCP - General 12/07/22 Additional Source Comments The information contained in this document represents components of the legal health record. It is not the complete legal health record.[facility]
--- OUTSIDE RECORDS SUMMARY | 2024-11-04 12:07 | XMS_ITS | Encounter Summary ---
Author Organization [facility] Address [address] [place] [address] Care Team Providers Care Finger Grip Machine Operator Name Role Phone Chely Barnes Primary Care Provider + Encounter Details Date Type Department Care Team (Late st Contact Info) Description 10/30/2024 Telephone Internal Medicine - [place] 175 [facility] [address] [place] [id number] Chely Barnes PA 175 [facility] [place] [address] [place] [address] Social History Tobacco Use Types Packs/Day Years [...] documented in this encounter Progress Notes * Kelley Davila MA - 10/31/2024 9:22 AM EDT Faxed to [employer] [phone] * Kelley Davila MA - 10/30/2024 2:54 PM EDT Pended. * Sarina Patiño - 10/30/2024 11:04 AM EDT Patient request if provider will order her a chair lift - to transport her up and down stairs. Grab bar-shower - stability concern documented in this encounter Plan of Treatment Upcoming Encounters Date Type Department Care Team (Late st Contact Info) Description 11/12/2024 9:45 AM EDT Office Visit Internal Medicine - [place] [address] [facility] [address] [place] [address] Chely Barnes PA 175 [facility] [address] [place] [address] documented as of this encounter Visit Diagnoses Diagnosis COPD with asthma (CMS/HCC V24, CMS/HCC V28)- Primary Paresthesia of hand, bilateral Obesity (BMI 30-39.9) Lower leg edema documented in this encounter Orders General Supply Count Last Ordered Date First Or dered Date GENERAL SUPPLY 2 10/30/2024 documented in this encounter Care Teams Finger Grip Machine Operator Relationship Specialty Start Date End Date Chely Barnes PA 175 [place] [address] PCP - General Primary Care 12/27/23 documented as of this encounter
== END 2024-11-04 09:34 | disposition home or self-care (01) ==
LOC: HO.CT 09:33
PROVIDERS: PCP Physician Assistant; Visit Provider Physician Assistant Medical
DX: Z12.2 Encounter for screening for malignant neoplasm of respiratory organs (principal); Z87.891 Personal history of nicotine dependence
CPT/HCPCS: 71271

== ENCOUNTER → 2024-11-04 09:35 | Outpatient (BNV) | payer OTHER, SELFPAY | PROVIDERS: PCP Physician Assistant; Visit Provider Radiology Diagnostic Radiology | DX: Z87.891 Personal history of nicotine dependence (principal) | CPT/HCPCS: 71271 ==

== ENCOUNTER 2025-01-26 15:25 | Outpatient (AMB) | payer OTHER, SELFPAY ==
--- OUTSIDE RECORDS SUMMARY | 2024-12-17 03:00 | XMS_ITS | Continuity of Care Document ---
Author Organization [facility] Address [address] [place] [address] Phone Care Team Providers Care Medical Education Coordinator Name Role Phone Arnol WATT, JAIRO, HERBIE, Navjot Unavailable U navailable Allergies, Adverse Reactions, Alerts Substance Reaction Status Criticality amoxicillin Active No Information morphine Active No Information Medications Medication Instructions Dosage Effective Dates (start - stop) Status Comments Ativan 0.5 mg tablet take 1 tablet by or al route every day 30-60 minutes prior to procedure - Active Procedures Procedure Date PT Did Not Receive Services Duplex Scan-extrem Veins; Uni/ CT & [place] O ct Duplex Scan-extrem Veins; Uni/ CT & [place] O ct Inj Scleros Solut; Mx Veins 1- CT & [place] O Ultrason Guidan Needle Bx-rad- CT & [place] O ct Varithena, Single Truncal Vein - CT & [place] Duplex Scan-extrem Veins; Uni/ CT & [place] O ct Duplex Scan-extrem Veins; Uni/ CT & [place] O ct Inj Scleros Solut; Mx Veins 1- CT & [place] O ct Ultrason Guidan Needle Bx-rad- CT & [place] O ct Duplex Scan-extrem Veins; Uni/ CT & [place] O ct Inj Scleros Solut; Mx Veins 1- CT & [place] O ct Ultrason Guidan Needle Bx-rad- CT & [place] O ct- Varithena, Single Truncal Vein - CT & [place] Varithena, Single Truncal Vein - CT & [place] Offic Cons New/estab Mod-hi 60- CT & [place] Duplex Scan-extrem Veins; Comp- CT & [place] Advance Directives Directive Yes / No Effective Date File Name No Information Encounters Encounter Description Practice Location Reason(s) For Visit Diagnoses Date Provider Providers Copied on Encounter [facility] MD GÓMEZ, [address] [place] [address] Dr Landry [address] [place]ay[place] Daniels [place], [id number], [place] tel:[phone] [facility] No Information Nov- 5 Arnol WATT RVT, HERBIE Morfin. [address] [place] [address], [place], [place], [id number] , [place]. tel:[phone] Referring Provider: Chely Guerra, [facility] [address], [address]. tel:[phone] [facility] MD GÓMEZ, [address] [place] [address] Dr Landry [address] Anayeli Daniels [place], [id number], [place] tel:[phone] [facility] Encounter for follow-up examination after completed treatment for conditions other than malignant neoplasmVarico se veins of left lower extremity with pain Nov- 5 Arnol WATT RVT, HERBIE Morfin. [address] [place] [address], [place], [place], [id number] , [place]. tel:[phone] Referring Provider: Chely Guerra, [facility] [address], [address]. tel:[phone] [facility] MD GÓMEZ, [address] [place] [address] Dr Landry [address] [place]ayeli Daniels [place], [id number], [place] tel:[phone] [facility] Encounter for follow-up examination after completed treatment for conditions other than malignant neoplasmChroni c venous hypertension (idiopathic) with other complications of left lower extremity Oct- 5 Arnol WATT RVT, HERBIE Morfin. [address] [place] [address], [facility] [place] [place] [id number] , [place]. [phone] Referring Provider: Chely Guerra, [address], [address]. tel:[phone] [facility] MD GÓMEZ, [address] [place] [address] Dr Landry [address] [address], [id number], [place] tel:[phone] [facility] Chronic venous hypertension (idiopathic) with inflammation of left lower extremity Nov- 5 Emilia Doshi . [address] [place] [address], [facility] [place], [id number] , [place]. [phone] Referring Provider: Chely Guerra, [facility] [address], [address]. tel:[phone] [facility] MD GÓMEZ, [address] [place] [address] Dr Landry [address] 1000[place], [id number], [place] tel:[phone] [facility] Varicose veins of left lower extremity with other complications Nov- 5 Arnol WATT RVT, HERBIE Morfin. [address] [place] [address], [facility] [place], [id number] , [place]. [phone] Referring Provider: Chely Guerra, [address] [place] [address], [address]. tel:[phone] [facility], [address] [place] [address] Dr Landry [address] 1000[place], [id number], [place] tel:[phone] [facility] - [facility] Encounter for follow-up examination after completed treatment for conditions other than malignant neoplasmPain in right lower leg Nov- 5 Arnol WATT RVT, HERBIE Morfin. [address] [place] [address], [place] [address], [facility] [place] [place], [id number] , [place]. tel:[phone] Referring Provider: Chely Guerra, [address], [address]. [phone] [facility], [address] [place] [address] Dr Landry [facility] [address], [id number], [place] tel:[phone] [facility] - [facility] Encounter for follow-up examination after completed treatment for conditions other than malignant neoplasmChroni c venous hypertension (idiopathic) with other complications of right lower extremity Oct-0 7- 5 Arnol WATT RVT, HERBIE Morfin. [address] [place] [address], [facility], [place], [id number] , [place]. tel: [phone] Referring Provider: Chely Guerra, [facility] [address], [address]. tel:[phone] [facility], [address] [place] [address] [facility] [address] [address], [id number], [place] tel:[phone] [facility] Varicose veins of right lower extremity with other complications Oct-0 5 Arnol WATT RVT, HERBIE Morfin. [address] [place] [address], [facility], [place], [id number] , [place]. tel: [phone] Referring Provider: Chely Guerra, [facility] [address], [address]. tel:[phone] [facility], [address] [place] [address] Dr Landry [address] 1000[place], [id number], [place] tel:[phone] CV[facility] - [facility] Encounter for follow-up examination after completed treatment for conditions other than malignant neoplasmVarico se veins of right lower extremity with pain Oct-0 2- 5 Arnol WATT RVT, HERBIE Morfin. [address] [place] [address], [place] [address], [facility], [place], [id number] , [place]. tel:[phone] Referring Provider: Chely Guerra, [address] [place] [address], [address]. tel:[phone] [facility] MD GÓMEZ, [address] [place] [address] Dr Landry [address] 1000[place], [id number], [place] tel:[phone] [facility] [place] [facility] Varicose veins of right lower extremity with other complications Oct-0 2- 5 Arnol WATT RVT, HERBIE Morfin. [address] [place] [address], [facility], [place], [id number] , [place]. tel:[phone] Referring Provider: Chely Guerra, [facility] [address], [address]. tel:[phone] [facility] MD GÓEMZ, [address] [place] [address] Dr Landry [address] 1000[place], [id number], [place] tel:[phone] CVR - [place] - [facility] Varicose veins of right lower extremity with other complications Sep-2 5 Arnol WATT RVT, HERBIE Morfin. [address] [place] [address], [facility], [place], [id number] , [place]. tel:[phone] Referring Provider: Chely Guerra, [facility] [address], [address]. tel:[phone] [facility] MD GÓMEZ, [address] [place] [address] Dr Landry [address] 1000[place], [id number], [place] tel:[phone] CVR - [place] [facility] Varicose veins of right lower extremity with other complications Sep-2 5 Arnol WATT RVT, HERBIE Morfin. [address] [place] [address], [facility], [place], [id number] , [place]. [phone] Referring Provider: Chely Guerra, [address] [place] [address], [address]. tel:[phone] [facility] MD GÓMEZ, [address] [place] [address] [address] 1000[place], [id number], tel:[phone] [facility] No Information 5 Arnol WATT RVT, RPVI Robert. [address] [place] [address], [place], [place], [id number] , . tel:[phone] Offic Cons New/estab Mod-hi 60- CT & [place] [facility], [address] [place] [address] [facility] [address] [address], [place], [id number], tel:[phone] [facility] Chronic venous hypertension (idiopathic) with other complications of bilateral lower extremity 5 Arnol WATT RVT, HERBIE Morfin. [address] [place] [address], [place], [place], [id number] , . tel:[phone] [facility], [address] [place] [address] Dr Landry [address], [place], [id number], tel:[phone] [facility] Chronic venous hypertension (idiopathic) with other complications of bilateral lower extremity 5 Arnol WATT RVT, RPVI Robert. [address] [place] [address], [place], [place], [id number] , . tel:[phone] Referring Provider: Navjot Ambrose MD, RVT, HERBIE, [address] [place] [address], [address]. tel:[phone] Family History Family Member Type Diagnosis Age At Onset No Information Payers Payer name Insurance type Covered alliance party ID albert beltrán(s) [facility] CI [id number] Social History Type Description Quantity Date Captured Comments Sex Female Smoking Status No Information Chief Complaint And Reason For Visit No Information Reason For Referral Reason For Referral No Information Plan Of Treatment Date Type Action Status Goal Tobacco cessation counseling completed Goal Diet education completed Referral Ordered: Weight management: Referral to physician timeframe: 3 Months (related to Body mass index (BMI) 35.0-35.9, adult) ordered Appointment Zaida Ji BOOKED Appointment Zaida Ji BOOKED History Of Present Illness Encounter Date Complaint History Of Prese nt Illness No Information Functional Status Date Functional Assessmen t No Information Instructions Date Instruction Additional Infor thee Pre and post instruc tions reviewed and provided Related to Chronic venous hypertension (idiopathic) with other complications of bilateral lower extremity Patient education booklet given Related to Chronic venous hypertension (idiopathic) with other complications of bilateral lower extremity Lifestyle education Related to B ghanshyam mass index (BMI) 35.0-35.9, adult Giving Encouragement to exercise Related to Body mass index (BMI) 35.0-35.9, adult Diet education Related to Body mass index (BMI) 35.0-35.9, adult Assessments Type Assessment Date No Information Patient Care Teams Name Effective Dates (start - stop) Status Members No Information
--- NOTE | 2025-01-26 15:27 | A.OFFVIS_ITS ---
Vital Signs 01/26/25 15:28 Height 5 ft 3 in Weight 216 lb 0.848 oz BMI 38.3 BP 134/72 Blood Pressure Location Lt brachial Position Sitting Pulse 70 Pulse Oximetry (%) 97 Oxygen Delivery Method Room Air Intake Visit Reasons: Asthma Child Study Team Director Required: No Accompanied by: Self / Same As Patient Allergies amoxicillin Adverse Reaction (Severe, Verified 01/26/25 15:30) Hives morphine Adverse Reaction (Severe, Verified 01/26/25 15:30) Hives HPI Comments Details: The patient is a 49 year woman presenting here with worsening asthma symptoms and shortness breath. The patient had been evaluated previously at [facility]. She had been admitted multiple times with pneumonia many years ago. For the last few years though she has not been hospitalized which is reassuring. However, she has been complaining of progressive dyspnea on exertion. The patient has been noticed that even with minimal activity she is very short of breath. Therefore she has been sedentary. She has gained some weight. The patient does have significant headaches and daytime drowsiness. Her [place] score is elevated 02/11. She has significant cardiovascular risk factors including significant lower extremity edema. The patient will undergo home sleep study at this time. During the office visit we did go for brief walking oximetry. The patient was able to maintain a pulse ox of 98% and the heart rate was indeed stable which is reassuring. As far as inhalers she has been on Arnuity and Incruse. Does have been partially effective. Sometimes she has confused about the inhalers. At this point will go ahead and maximize respiratory therapy by switching her over to Trelegy inhaler which will be on ea sier and will provide her more coverage as far as her bronchodilation. The patient is a former smoker. She quit smoking about 3 years ago. She smoked for more than 20 years for about a pack a day. Therefore she does qualify for the lung cancer screening program. Will make a referral at this time. 11/14/2023 the patient is here for a pulmonary follow-up visit. Overall she is doing okay. She still has some dyspnea on exertion. mild in severity. It is getting better. In addition to that she quit smoking. She still has a hard time with the cravings. We did go over her lung cancer screening CT scan. She does have mild emphysema. This concerned her. In addition to that she has multiple subcentimeter pulmonary nodules. Do not appear concerning her rads 2. She will get the CT scan in a year's time. In addition to that she continues have daytime drowsiness. [place] score is elevated 1124. she has witnessed apneic episodes significant snoring from her . She did have a home sleep study. Did not look like a recorded well but she did have 34 minutes which she spent below 88%. Therefore she has significant nocturnal hypoxia. Based on her symptoms and hypoxia I do not believe that the home sleep studies accurate. She will need a in-lab sleep study at this time. Will requested. She will continue with current respiratory therapy as prescribed. She will continue to use her rescue inhaler as needed. She is going to continue to focus on weight management. She also needs to continue with a low-sodium diet to avoid volume overload status. She does have varicose veins and lymphedema. She needs compression stockings to decrease the amount of edema. I will give her a prescription in order for her to get it at [facility]. 03/12/2024 the patient is here for a pulmonary follow-up visit. The patient overall has been doing okay. She does state that she is having intermittent chest pain. There fleeting when they occur. [id number] severity. Mainly in the left side of the chest. Will go ahead and request a EKG and also a echocardiogram. The patient should also get some blood work. If the symptoms reoccur she should go to the ER for further evaluation. Currently she does not have any chest discomfort. She still has daytime drowsiness. She did have a in- lab sleep study. No evidence of any significant sleep apnea although she did have nocturnal hypoxia. It was recommended that she sleep with oxygen. The patient is not interested at this time. Will plan to do a repeat overnight oximetry in the near future. In the meantime we talked about her lower extremity edema. The patient has been on diuretics. She does not have a good dietary regimen right now. The patient eats out most of the time or has process foods. The patient states that she does not cook and she does not want a cook because it just brings bad memories with her mom. Therefore, will go ahead and for her to a dietitian to help with that and the patient will continue with current respiratory therapy. She is taking part of the lung cancer screening program. Her last CT scan was back in September which is reassuring. She will have a repeat CT scan sometime in 10/08/2024. Will plan to follow-up in the fall. If any issues arise prior to that she will call for an earlier assessment. 01/26/2025 the patient is here for pulmonary follow-up visit. The patient has significant amount of weight gain in the last few months. She is not clear what is going on. She has significant lower extremity edema. She was already taking diuretics but she seems to need a lot more. She did have an echo back in the winter of 2024. Appears to have some elevated pressures on the right side with a dilated right atrium but no significant pulmonary hypertension that could be assess. The patient did have a sleep study in the demonstrating some degree of hypoxia which may be contributing but no significant sleep apnea. Based on the weight gain in the fact that she has a daytime drowsiness [place] score of 11/24 will go ahead and repeat a in-lab sleep study. The patient had nocturnal hypoxia so the in-lab sleep study with the best way to assess it. In addition to that the patient did have an EKG that was normal. She does have shortness of breath and chest discomfort. Will go ahead and request a cardiology evaluation and also a stress test. The patient will continue with the diuretics. And I will give her additional diuretics that she can take to try to get some fluid off her legs. She is also going to see her primary care doctor soon to further discuss her significant weight gain. She will [facility] with the [facility]. She will follow-up in 3- 4 months if she has any issues prior to this she can always call for further recommendations. [facility] Medical History (Updated 03/12/24 @ 19:30 by Rodney Vazquez MD) Chest pain Nocturnal hypoxia Lymphadenopathy Asthma MELQUIADES (obstructive sleep apnea) Personal history of nicotine dependence Lower extremity edema Surgical History (Updated 10/11/23 @ 15:51 by Rachel Garcia PA-C) S/P POCKET STITCHER shunt History of carpal tunnel release History of cholecystectomy History of total right knee replacement (TKR) Social History Patient Tobacco Use Status: Former Tobacco user Tobacco use type: Cigarette Years Smoked: (onset 16yo, 1-1.5ppd x 31yrs, 35pyh, quit 2022) Review of Systems Const Reports weight gain Eyes Reports no additional complaints ENT Reports nasal congestion Card Reports chest pain, Reports leg edema and Reports dyspnea on exertion Resp Reports dyspnea on exertion and Reports wheezing GI Reports no additional complaints Musc Reports no additional complaints Skin/Breast Denies rash Neuro Reports no additional complaints Shawn/Lymph Reports no additional complaints Aller/Immun Reports wheezing Physical Exam Vital Signs: Last Vital Signs Pulse 70 01/26/25 15:28 BP 134/72 01/26/25 15:28 Pulse Ox 97 01/26/25 15:28 Oxygen Delivery Method Room Air 01/26/25 15:28 BMI result Body Mass Index 38.3 Const General: comfortable HEENT Head: Yes normocephalic Neck Neck: Yes supple Chest Chest palpation & inspection: normal inspection of the chest Resp Effort & Inspection: normal respiratory effort Auscultation: no rhonchi, no wheezes and diminished lung sounds Cardio Heart sounds: S1 normal heart sound present and S2 normal heart sound present GI Palpation (GI): Soft to palpation Skin General skin exam: no rashes or lesions noted Extrem General: No clubbing, No cyanosis and Yes edema Assessment & Plan Assessment & Plan (1) MELQUIADES (obstructive sleep apnea): Code(s): G47.33 - Obstructive sleep apnea (adult) (pediatric) Category: Medical (2) Asthma: Code(s): J45.909 - Unspecified asthma, uncomplicated Category: Medical Qualifiers: Asthma complication type: uncomplicated Asthma persistence: persistent Asthma severity: moderate Qualified Code(s): J45.40 - Moderate persistent asthma, uncomplicated (3) Lower extremity edema: Code(s): R60.0 - Localized edema Category: Medical (4) Dyspnea: Code(s): R06.00 - Dyspnea, unspecified Category: Medical Qualifiers: Dyspnea type: dyspnea on exertion Qualified Code(s): R06.09 - Other forms of dyspnea (5) Lymphadenopathy: Code(s): R59.1 - Generalized enlarged lymph nodes Category: Medical (6) Nocturnal hypoxia: Code(s): G47.34 - Idiopathic sleep related nonobstructive alveolar hypoventilation Category: Medical (7) Chest pain: Code(s): R07.9 - Chest pain, unspecified Category: Medical Qualifiers: Chest pain type: unspecified Qualified Code(s): R07.9 - Chest pain, unspecified Plan continue Trelegy 200 ROBBI as needed Morena cardiac stress test cardiology referral LDCT screen in-lab PSG Continue diuresis Low sodium diet F/U 4 months Orders: Orders NM cardiolite stress test Today R07.9 - Chest pain, unspecified CA lexiscan stress w essie Today R07.9 - Chest pain, unspecified RT PSG in-lab sleep study Today G47.33 - Obstructive sleep apnea (adult) (pediatric), G47.34 - Idiopathic sleep related nonobstructive alveolar hypoventilation Referrals Cardiology Referral R06.09 - Other forms of dyspnea, R07.9 - Chest pain, unspecified Medications: New azelastine administer into each nostril 2 sprays intranasal BID 30 mL 6RF 30 days Changed From furosemide 20 mg PO DAILY To furosemide 20 mg PO DAILY PRN 20 tabs 6RF weight gain 30 days Coding Level of Care Code Est Pt Level 4 (04868) Complex visit Add On G2211 Diagnoses MELQUIADES (obstructive sleep apnea) G47.33 Moderate persistent asthma without complication J45.40 Asthma complication type: uncomplicated Asthma persistence: persistent Asthma severity: moderate Lower extremity edema R60.0 Dyspnea on exertion R06.09 Dyspnea type: dyspnea on exertion Lymphadenopathy R59.1 Nocturnal hypoxia G47.34 Chest pain, unspecified type R07.9 Chest pain type: unspecified Time Spent (min) 17
[2025-01-26 15:28] VITALS: BP 134/72; PULSE 70; O2SAT 97; BMI 38.3
--- OUTSIDE RECORDS SUMMARY | 2025-01-27 00:55 | XMS_ITS | Clinical Summary ---
Author Organization [facility] Address [address] [place] [address] Phone Care Team Providers Care Air Intercept Controller Supervisor Name Role Phone Chely Barnes Primary Care [...] Devices Not on file Insurance [employer] [id number] [place] [address] [place] [address] [place] [address] MEDICARE REPLACEMENT [facility] [employer] MEDICARE REPLACEMENT Care Teams Air Intercept Controller Supervisor Relationship Specialty Start Date End Date Chely Barnes PA [address] [facility] [address] [place] [address] PCP - General 12/07/22 Additional Source Comments The information contained in this document represents components of the legal health record. It is not the complete legal health record.[facility]
--- OUTSIDE RECORDS SUMMARY | 2025-01-27 00:55 | XMS_ITS | Clinical Summary ---
Author Organization [facility] Address [address] [place] [address] Phone Care Team Providers Care Neuro Psych Sales Specialist Name Role Phone Chely Barnes Primary Care [...] day. 90 each 3 5 026 Active polyethylene glycol (MIRALAX) 17 gram packet MIX AND DRINK 1 PACKET BY MOUTH DAILY 30 each 1 5 Active tirzepatide, weight loss, (Zepbound) 7.5 mg/0.5 mL injectionIndicatio ns:Obesity (BMI 30-39.9) Inject 0.5 mL (7.5 mg total) under the skin every 7 (seven) days. 6 mL 1 5 Active Linzess 290 mcg capsule TAKE 1 CAPSULE(290 MCG) BY MOUTH 1 TIME EACH DAY 90 capsule 1 5 Active lisinopriL (PRINIVIL,ZESTRIL) 10 mg tabletIndications: Primary hypertension Take 1 tablet (10 mg total) by mouth 1 (one) time each day. 90 each 5 Active Active Problems Problem Noted Date Diagnosed Date Asthma 02/04/2024 Migraine 02/04/2024 Pseudotumor cerebri 02/04/2024 Morbid obesity with BMI of 40.0-44.9, adult 01/19 Vitamin D deficiency 09/13/2022 Hypoxemia 04/23/2020 Allergic rhinitis due to pollen 05/21/2019 Nicotine dependence, uncomplicated 05/21/2019 PND (post-nasal drip) 05/21/2019 Anxiety and depression 10/02/2018 Trigger finger 06/25/2017 HTN (hypertension) Resolved Problems Problem Noted Date Diagnosed Date Resolved Date Depression 02/04/2024 08/11/2024 Tobacco abuse disorder 11/12 Overview (02/07/2024): DX:Tobacco abuse disorder Encounters Date Type Department Care Team Description 11/25/2024 1:45 PM EDT Office Visit Internal Medicine [address] [phone] Chely Barnes PA Primary hypertension (Primary Dx); Migraine without status migrainosus, not intractable, unspecified migraine type 11/17/2024 Telephone Internal Medicine [address] [phone] Chely Barnes PA 11/16/2024 4:21 AM EDT - 11/16/2024 6:46 AM EDT Emergency [facility] Emergency [address] [place] [phone] Jonnathan Nash MD Dizziness (Primary Dx) Discharge Disposition: Home or Self Care 11/12/2024 9:45 AM EDT Office Visit Internal Medicine [address] [phone] Chely Barnes PA Obesity (BMI 30-39.9) (Primary Dx); Primary hypertension; COPD with asthma (CMS/HCC V24, CMS/HCC V28); Anxiety and depression 10/30/2024 Telephone Internal Medicine [address] [phone] Chely Barnes PA from Last 3 Months Immunizations Immunization Administration Dates Next Due Pfizer SARS-CoV-2 COVID-19, mRNA, LNP-S, preservative free 02/22/2021 Surgical History Surgery Date Site/Laterality Comments OTHER SURGICAL HISTORY PROCEDURE: ---- OTHER ----; COMMENT: v/p shunt - 4 years ago, done at [facility] by Dr anders CHOLECYSTECTOMY 2001 PROCEDURE: HISTORICAL CHOLECYSTECTOMY CARPAL TUNNEL RELEASE 2017 Bilateral PROCEDURE: [place] NEUROPLASTY &/TRANSPOS MEDIAN NRV CARPAL TUNNE COLONOSCOPY 08/24/2021 PROCEDURE: HISTORICAL COLONOSCOPY; COMMENT: negative/fair prep ESOPHAGOGASTRODUODENOSCOPY 08/24/2021 PROCEDURE: [place] EGD TRANSORAL BIOPSY SINGLE/MULTIPLE; COMMENT: hiatal hernia. biopsy with H.pylori gastritis TOTAL KNEE ARTHROPLASTY Right PROCEDURE: HISTORICAL TOTAL KNEE REPLACE; COMMENT: 2015 Medical History Medical History Date Comments Pseudotumor cerebri DX:Pseudotum or cerebri; COMMENT: follows with Dr Bergman [facility] Neurosurgical S/P LITHOGRAPHERS PRINTER shunt DX:S/P LITHOGRAPHERS PRINTER shunt Asthma DX:Asthma; COMME NT: Dr Erazo at [facility] Migraine DX:Migraine; COM MENT: Dr peck in [facility] Trigger finger 06/25/2017 DX:Trigger finge r H/O total knee replacement, right 02/29/2016 DX:H/O total knee replacement, right Morbid obesity with BMI of 40.0-44.9, adult (CMS/HCC V24, CMS/HCC V28) 03/29/2018 DX:Morbid obesity with BMI o f 40.0-44.9, adult ([facility]) Tobacco abuse disorder DX:Tobacc o abuse [...] on file Sexual Orientation Not on file Last Filed Vital Signs Vital Sign Reading Time Taken Comments Blood Pressure 162/76 11/25/2024 1:48 PM EDT Pulse 78 11/25/2024 1:48 PM EDT Temperature 36.6 C (97.8 F) 11/25/2024 1:48 PM EDT Respiratory Rate 18 11/16/2024 6:35 AM EDT Oxygen Saturation 97% 11/25/2024 1:48 PM EDT Inhaled Oxygen Concentration - - Weight 97.1 kg (214 lb) 11/25/2024 1:48 PM EDT Height 160 cm (5' 3 ) 11/25/2024 1:48 PM EDT Body Mass Index 37.91 11/25/2024 1:48 PM EDT Plan of Treatment Upcoming Encounters Date Type Department Care Team (Late st Contact Info) Description 01/27/2025 10:45 AM EST Office Visit Internal Medicine - [place] [address] [place] [phone] Chely Barnes PA [address] [facility] [place] [phone] 03/25/2025 11:20 AM EST Office Visit Gastroenterology - [address] [place] [phone] Ale Williamson NP [address] [address] 05/13/2025 9:30 AM EDT Office Visit Internal Medicine [facility] [address] [place] [phone] Chely Barnes PA [address] [place] [phone] Health Maintenance Due Date Last Done Comments [...] 01/28/2022 Social Influencers of Health Screening 01/28/2022 RSV Immunization Adult Patients (1 - Risk 50-74 years 1-dose series) 07/02/2023 Zoster Vaccines (1 of 2) 07/02/2023 Depression Screening 02/20/2024 COVID-19 Vaccine ( - season) 2024 02/22/2021, 06/15/2020, 05/25/2020 Influenza Vaccine (#1) 2024 Breast Cancer Screening 07/08/2025 07/09/2023 Hypertension/CHF/CAD Annual BMP Blood Test 11/16/2025 11/16/2024, 08/11/2024, 03/27/2024, Additional history exists Cholesterol Screening (Lipid Panel) [...] Comments RESPIRATORY VIRUS PANEL MOLECULAR STUDY STAT 11/16/2024 4:55 AM EDT CBC WITH AUTO DIFFERENTIAL STAT 11/16/2024 4:35 AM EDT COMPREHENSIVE METABOLIC PANEL STAT 11/16/2024 4:35 AM EDT TROPONIN I HIGH SENSITIVITY Timed 11/16/2024 4:35 AM EDT MAGNESIUM STAT 11/16/2024 4:35 AM EDT CBC AND DIFFERENTIAL STAT 11/16/2024 4:35 AM EDT ECG 12-LEAD STAT 11/16/2024 4:18 AM EDT MARGOTH SCREENING DIGITAL Routine 07/09/2023 10:08 AM EDT Encounter for screening mammogram for malignant neoplasm of breast LIPID PANEL Routine 09/11/2022 HM COLONOSCOPY Routine 08/24/2021 from Last 3 Months or Most Recently Relevant to Health Maintenance Results * Respiratory virus panel molecular study (11/16/2024 4:55 AM EDT) Pathologist [facility] Adenovirus Detection by PCR Not Detected Not Detected LAB MICROBIOLOGY METHOD 11/16/2024 6:21 AM EDT [facility] Influenza A PCR Not Detected Not Detected LAB MICROBIOLOGY METHOD 11/16/2024 6:21 AM EDT [facility] Influenza B PCR Not Detected Not Detected LAB MICROBIOLOGY METHOD 11/16/2024 6:21 AM EDT [facility] Coronavirus 229E Not Detected Not Detected LAB MICROBIOLOGY METHOD 11/16/2024 6:21 AM EDT [facility] Coronavirus HKU1 Not Detected Not Detected LAB MICROBIOLOGY METHOD 11/16/2024 6:21 AM EDT [facility] Coronavirus OC43 Not Detected Not Detected LAB MICROBIOLOGY METHOD 11/16/2024 6:21 AM EDT [facility] Coronavirus NL63 Not Detected Not Detected LAB MICROBIOLOGY METHOD 11/16/2024 6:21 AM EDT [facility] Parainfluenza Virus 1 Not Detected Not Detected LAB MICROBIOLOGY METHOD 11/16/2024 6:21 AM EDT [facility] Parainfluenza Virus 2 Not Detected Not Detected LAB MICROBIOLOGY METHOD 11/16/2024 6:21 AM EDT [facility] Parainfluenza Virus 3 Not Detected Not Detected LAB MICROBIOLOGY METHOD 11/16/2024 6:21 AM EDT [facility] Parainfluenza Virus 4 Not Detected Not Detected LAB MICROBIOLOGY METHOD 11/16/2024 6:21 AM EDT [facility] RSV PCR Not Detected Not Detected LAB MICROBIOLOGY METHOD 11/16/2024 6:21 AM EDT [facility] Human Metapneumovirus A and B Not Detected Not Detected LAB MICROBIOLOGY METHOD 11/16/2024 6:21 AM EDT [facility] Rhinovirus/Entero virus Not Detected Not Detected LAB MICROBIOLOGY METHOD 11/16/2024 6:21 AM EDT [facility] Bordetella pertussis Not Detected Not Detected LAB MICROBIOLOGY METHOD 11/16/2024 6:21 AM EDT [facility] Bordetella parapertussis Not Detected Not Detected LAB MICROBIOLOGY METHOD 11/16/2024 6:21 AM EDT [facility] Mycoplasma pneumo by PCR Not Detected Not Detected LAB MICROBIOLOGY METHOD 11/16/2024 6:21 AM EDT [facility] Chlamydia pneumoniae Not Detected Not Detected LAB MICROBIOLOGY METHOD 11/16/2024 6:21 AM EDT [facility] SARS COV-2 Not Detected Not Detected LAB MICROBIOLOGY METHOD 11/16/2024 6:21 AM EDT [facility] Swab Both anterior nares / Unknown Non-blood Collection / Unknown 11/16/2024 4:55 AM EDT 11/16/2024 5:17 AM EDT [facility] - 11/16/2024 6:21 AM EDT Testing was performed using the Slingjot Respiratory Pathogen PCR Assay. All results must [...] that are below the limit of detection. Jonnathan Nash MD LAB MICROBIOLOGY - [facility] Final Result Performing Organization Address [facility] Co de Phone Number [facility] [address] [place] [address], * Troponin I high sensitivity (11/16/2024 4:35 AM EDT) [facility] High Sensitivity Troponin I <3 <=54 ng/L LAB CHEMISTRY METHOD 11/16/2024 5:42 AM EDT [facility] Blood Venous blood specimen / Unknown Venipuncture / Unknown 11/16/2024 4:35 AM EDT 11/16/2024 5:17 AM EDT Narrative [facility] - 11/16/2024 5:42 AM EDT High levels of biotin in samples may falsely decrease hsTroponin values. Use caution when interpreting hsTroponin results in patients taking biotin who exhibit renal impairment (eGFR <60) or in patients taking more than 20 mg/day of biotin. Rachel SONG LAB BLOOD ORDERABLES Fin al Result Performing Organization Address [facility] de Phone Number [facility] [address] [place] [address], * (ABNORMAL) CBC auto differential (11/16/2024 4:35 AM EDT) [facility] WBC 6.8 4.8 - 10.8 K/[facility] LAB HEMETOLOGY METHOD 11/16/2024 5:34 AM EDT [facility] RBC 4.50 3.80 - 4.80 M/[facility] LAB HEMETOLOGY METHOD 11/16/2024 5:34 AM [facility] Hemoglobin 13.2 11.5 - 16.0 g/dL LAB HEMETOLOGY METHOD 11/16/2024 5:34 AM [facility] Hematocrit 40.4 35.0 - 47.0 % LAB HEMETOLOGY METHOD 11/16/2024 5:34 AM [facility] MCV 90.8 79.0 - 98.0 FL LAB HEMETOLOGY METHOD 11/16/2024 5:34 AM [facility] MCH 29.7 27.0 - 32.0 pcg LAB HEMETOLOGY METHOD 11/16/2024 5:34 AM [facility] MCHC 32.7 32.0 - 37.0 g/dL LAB HEMETOLOGY METHOD 11/16/2024 5:34 AM [facility] RDW 12.9 11.0 - 15.0 % LAB HEMETOLOGY METHOD 11/16/2024 5:34 AM [facility] Platelets 242 130 - 400 K/mcL LAB HEMETOLOGY METHOD 11/16/2024 5:34 AM [facility] MPV 11.6(H) 7.0 - 11.0 FL LAB HEMETOLOGY METHOD 11/16/2024 5:34 AM [facility] NRBC 0.0 <1.0 % LAB HEMETOLOGY METHOD 11/16/2024 5:34 AM [facility] NRBC Absolute 0.00 <0.10 K/mcL LAB HEMETOLOGY METHOD 11/16/2024 5:34 AM [facility] Neutrophils Relative 59.6 % LAB HEMETOLOGY METHOD 11/16/2024 5:34 AM [facility] Lymphocytes Relative 31.1 % LAB HEMETOLOGY METHOD 11/16/2024 5:34 AM [facility] Monocytes Relative 6.6 % LAB HEMETOLOGY METHOD 11/16/2024 5:34 AM EDT [facility] Eosinophils Relative 2.1 % LAB HEMETOLOGY METHOD 11/16/2024 5:34 AM [facility] Basophils Relative 0.3 % LAB HEMETOLOGY METHOD 11/16/2024 5:34 AM EDT [facility] Immature Granulocytes Relative 0.3 % LAB HEMETOLOGY METHOD 11/16/2024 5:34 AM EDT [facility] Neutrophils Absolute 4.06 1.50 - 7.00 K/mcL LAB [facility]OLOGY [facility]24 [facility] Lymphocytes Absolute 2.12 1.00 - 5.00 K/mcL LAB [facility]OLOGY [facility]24 [facility] Monocytes Absolute 0.45 0.20 - 1.00 K/mcL LAB HEMETOLOGY METHOD 11/16/2024 5:34 AM EDT [facility] Eosinophils Absolute 0.14 0.00 - 0.50 K/mcL LAB HEMETOLOGY METHOD 11/16/2024 5:34 AM [facility] Basophils Absolute 0.02 0.00 - 0.20 K/mcL LAB HEMETOLOGY METHOD 11/16/2024 5:34 AM T [facility] Immature Granulocytes Absolute 0.02 0.00 - 0.03 K/mcL LAB HEMETOLOGY METHOD 11/16/2024 5:34 AM T [facility] Blood Venous blood specimen / Unknown Venipuncture / Unknown 11/16/2024 4:35 AM EDT 11/16/2024 5:17 AM EDT us Rachel SONG LAB BLOOD ORDERABLES Fin al Result [facility] [address] [place] [address], [place] [phone] * Magnesium (11/16/2024 4:35 AM EDT) [facility] Magnesium 2.0 1.9 - 2.6 mg/dL LAB CHEMISTRY METHOD 11/16/2024 5:43 AM [facility] Comment:Hemolysis present Blood Venous blood specimen / Unknown Venipuncture / Unknown 11/16/2024 4:35 AM EDT 11/16/2024 5:17 AM EDT Rachel SONG LAB BLOOD ORDERABLES Fin al Result [facility] [address] [place] [address], [place] [phone] * Comprehensive metabolic panel (11/16/2024 4:35 AM EDT) [facility] Sodium 139 133 - 145 mmol/L LAB CHEMISTRY METHOD 11/16/2024 5:43 AM [facility] Potassium 4.9 3.5 - 5.5 mmol/L LAB CHEMISTRY METHOD 11/16/2024 5:43 AM [facility] Comment:Hemolysis present Chloride 104 96 - 110 mmol/L LAB CHEMISTRY METHOD 11/16/2024 5:43 AM [facility] CO2 32 21 - 32 mmol/L LAB CHEMISTRY METHOD 11/16/2024 5:43 AM [facility] Anion Gap 3 3 - 11 LAB CHEMISTRY METHOD 11/16/2024 5:43 AM [facility] Glucose 88 70 - 100 mg/dL LAB CHEMISTRY METHOD 11/16/2024 5:43 AM [facility] BUN 13 5 - 25 mg/dL LAB CHEMISTRY METHOD 11/16/2024 5:43 AM [facility] Creatinine 0.76 0.50 - 1.10 mg/dL LAB CHEMISTRY METHOD 11/16/2024 5:43 AM [facility] eGFR 95 >=60 mL/min/1. 73m2 LAB CHEMISTRY METHOD 11/16/2024 5:43 AM [facility] Comment:Calculation based on the Chronic Kidney Disease Epidemiology Collaboration (CKD-EPI) equation refit without adjustment for race. BUN/Creatinine Ratio 17.1 LAB CHEMISTRY METHOD 11/16/2024 5:43 AM [facility] Calcium 8.8 8.5 - 10.5 mg/dL LAB CHEMISTRY METHOD 11/16/2024 5:43 AM [facility] AST (SGOT) 21 10 - 42 unit/L LAB CHEMISTRY METHOD 11/16/2024 5:43 AM [facility] Comment:Hemolysis present ALT (SGPT) 24 10 - 60 unit/L LAB CHEMISTRY METHOD 11/16/2024 5:43 AM [facility] Alkaline Phosphatase 85 42 - 121 unit/L LAB CHEMISTRY METHOD 11/16/2024 5:43 AM [facility] Total Protein 7.4 6.0 - 8.0 g/dL LAB CHEMISTRY METHOD 11/16/2024 5:43 AM [facility] Albumin 3.8 3.2 - 5.0 g/dL LAB CHEMISTRY METHOD 11/16/2024 5:43 AM [facility] Total Bilirubin 0.4 0.0 - 1.4 mg/dL LAB CHEMISTRY METHOD 11/16/2024 5:43 AM [facility] Blood Venous blood specimen / Unknown Venipuncture / Unknown 11/16/2024 4:35 AM EDT 11/16/2024 5:17 AM EDT us Rachel SONG LAB BLOOD ORDERABLES Fin al Result [facility] [address] [place] [address], * ECG 12 lead (11/16/2024 4:18 AM EDT) Ventricular Rate ECG 62 BPM GEMUSE Atrial Rate 62 BPM GEMUSE P-R Interval 130 ms GEMUSE QRS Duration 78 ms GEMUSE Q-T Interval 388 ms GEMUSE QTc 393 ms GEMUSE P Wave Jewett 69 degrees GEMUSE R Jewett 70 degrees GEMUSE T Jewett 52 degrees GEMUSE ECG Interpretation Normal sinus rhythm Normal ECG When compared with ECG of 27-DEC-2023 01:16, No significant change was found Confirmed by TEGAN LAMAS ([id number]) on 11/16/2024 10:01:37 PM GEMUSE 11/16/2024 4:18 AM EDT 11/16/2024 10:01 PM EDT Rachel SONG ECG ORDERABLES Final Re sult GEMUSE * MARGOTH SCREENING DIGITAL (07/09/2023 10:08 AM EDT) Anatomical Region Laterality Modality Mammography 07/05/2023 9:05 AM EDT Narrative 07/09/2023 10:08 AM EDT [facility] Diagnostic Imaging Department [address] [place] [address] Patient: MANOLOZAIDA /Age/Sex: 1975 - 48 - F Unit#: [id number] Location/Status: SPDIMAM/REG CLI Mnemonic[facility] Physician: MICHEL CERVANTES MD [facility] Screening Digital - 07/07/23 - 1121 Report Status:Signed EXAM: [facility] Screening Digital EXAM DATE AND TIME: 07/07/2023 11:21 AM HISTORY: Screening. COMPARISON: 09/02/08 TECHNIQUE: Bilateral digital breast tomosynthesis was performed in the CC and MLO projections. Computer aided detection with Wingz 3D 3.1 was employed. TISSUE DENSITY: a. [...] 1007 Sign date/Time: 07/09/23 1008 Procedure Note Daniella Ruth MD - 10/08/2023 [facility] Diagnostic Imaging Department [address] [place] [id number] Patient: ZAIDA FRENCH Francisca /Age/Sex: 1975 - 48 - F Unit#: [id number] Location/Status: SPDIMAM/REG CLI Mnemonic[facility] Ordering Physician: MICHEL CERVANTES MD [facility] Screening Digital - 07/07/23 - 1121 Report Status:Signed EXAM: [facility] Screening Digital EXAM DATE AND TIME: 07/07/2023 11:21 AM HISTORY: Screening. COMPARISON: 09/02/08 TECHNIQUE: Bilateral digital breast tomosynthesis was performed in the CCand MLO projections. Computer aided detection with Wingz 3D 3.1was employed. TISSUE DENSITY: a. The [...] normal, abstracted Anatomical Region Laterality Modality Other us Historical Provider HEALTH MAINTENANCE Final Result from Last 3 Months or Most Recently Relevant to Health Maintenance Insurance [employer] MED[employer] Member Subscriber Plan / Payer (Ef fective 2018-Present) Name:ZAIDA FRENCH Relation to Subscriber:Self Name:Zaida French Payer ID:[id number] Group ID:[id number] Type:Not on file Address: [address] [facility] [place] [address] Care Teams Neuro Psych Sales Specialist Relationship Specialty Start Date End Date Chely Barnes PA [address] [facility] [address] [place] [address] PCP - General Primary Care 12/27/23
== END 2025-01-26 15:55 | disposition home or self-care (01) ==
LOC: HO.HPS 15:25
PROVIDERS: PCP Physician Assistant; Visit Provider Hospitalist
DX: G47.33 Obstructive sleep apnea (adult) (pediatric) (principal); J45.40 Moderate persistent asthma, uncomplicated; R60.0 Localized edema; R06.09 Other forms of dyspnea; R59.1 Generalized enlarged lymph nodes; G47.34 Idiopathic sleep related nonobstructive alveolar hypoventilation; R07.9 Chest pain, unspecified
CPT/HCPCS: 99214; G2211

== ENCOUNTER → 2025-01-26 15:25 | Outpatient (BNVA) | payer OTHER, SELFPAY | PROVIDERS: PCP Physician Assistant; Visit Provider Hospitalist | DX: G47.33 Obstructive sleep apnea (adult) (pediatric) (principal); G47.34 Idiopathic sleep related nonobstructive alveolar hypoventilation; J45.40 Moderate persistent asthma, uncomplicated; R60.0 Localized edema; R06.09 Other forms of dyspnea; R59.1 Generalized enlarged lymph nodes; R07.9 Chest pain, unspecified; Z79.51 Long term (current) use of inhaled steroids; Z79.899 Other long term (current) drug therapy; Z87.891 Personal history of nicotine dependence | CPT/HCPCS: 99212 ==